=== PATIENT | male | born 1985 | race Caucasian/White ===

== ENCOUNTER 2017-06-30 10:40 | Emergency (ER) | payer OTHER ==
[2017-06-30 10:55] VITALS: TEMP 97.5
--- NOTE | 2017-06-30 11:48 | ED ---
General Adult HPI - General Chief complaint: Extremity Problem,Nontraumatic Stated complaint: Numbness in hands Time Seen by Provider: 06/30/17 10:55 Source: patient, RN notes reviewed Mode of arrival: ambulatory Limitations: no limitations - History of Present Illness Initial comments: This is a 31-year-old male who presents emergency Department complaining of a two-week history of tingling to his fingers and that tingling is now progressed up into his forearms and up to his calves now. Patient also is stating that he does not feel anywhere near as strong as he is. 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 Patient states in early May he had a gastroenteritis type picture. Patient denies any recent fever or chills patient denies any cough patient denies any chest pain difficulty breathing or shortness of breath. Patient denies any swallowing difficulties. Patient denies any headache patient denies any visual disturbance. Patient states the weakness seems to be in all 4 extremities relatively equally however in his right foot he is able to curl his toes more than he can on the left. Patient denies any recent injury or fall. - Related Data Home Medications Medication Instructions Recorded Confirmed No Known Home Medications [No 06/30/17 06/30/17 Known Home Medications] Allergies Allergy/AdvReac Type Severity Reaction Status Date / Time meperidine [From Demerol] Allergy Rash/Hives Verified 06/30/17 12:22 morphine Allergy Rash/Hives Verified 06/30/17 12:22 Review of Systems ROS Statement: Those systems with pertinent positive or pertinent negative responses have been documented in the HPI. ROS Other: All systems not noted in ROS Statement are negative. Past Medical History Past Medical History: No Reported History History of Any Multi-Drug Resistant Organisms: None Reported Past Surgical History: Orthopedic Surgery Additional Past Surgical History / Comment(s): kidney polyps removed in left kidney, lt shoulder Past Anesthesia/Blood Transfusion Reactions: No Reported Reaction Past Psychological History: No Psychological Hx Reported Smoking Status: Never smoker Past Alcohol Use History: None Reported Past Drug Use History: None Reported General Exam - General Exam Comments Initial Comments: GENERAL: Patient is well-developed and well-nourished. Patient is nontoxic and well- hydrated and is in mild distress. ENT: Neck is soft and supple. No significant lymphadenopathy is noted. Oropharynx is clear. Moist mucous membranes. Neck has full range of motion without eliciting any pain. EYES: The sclera were anicteric and conjunctiva were pink and moist. Extraocular movements were intact and pupils were equal round and reactive to light. Eyelids were unremarkable. PULMONARY: Unlabored respirations. Good breath sounds bilaterally. No audible rales rhonchi or wheezing was noted. CARDIOVASCULAR: There is a regular rate and rhythm without any murmurs gallops or rubs. ABDOMEN: Soft and nontender with normal bowel sounds. No palpable organomegaly was noted. There is no palpable pulsatile mass. SKIN: Skin is clear with no lesions or rashes and otherwise unremarkable. NEUROLOGIC: Patient is alert and oriented x3. Cranial nerves II through XII are grossly intact. Patient has weakness of the biceps as well as the quadriceps muscles. Patient also is having tingling sensation in her hands and feet but does not have objective numbness. Patient has no patellar tendon reflex bilaterally. MUSCULOSKELETAL: Normal extremities with diffuse weakness and full range of motion. No lower extremity swelling or edema. No calf tenderness. LYMPHATICS: No significant lymphadenopathy is noted PSYCHIATRIC: Normal psychiatric evaluation. Normal interpersonal interactions appears functionally intact in deals appropriately with others. Limitations: no limitations Course Vital Signs 06/30/17 06/30/17 10:52 12:50 Temperature 97.5 F L Pulse Rate 85 71 Respiratory 20 15 Rate Blood Pressure 137/94 105/68 O2 Sat by Pulse 99 97 Oximetry Procedures - Lumbar Puncture Consent Obtained: written consent Time Out Performed: Yes Indication for Procedure: other (Generalized weakness) Patient Position: sitting upright/leaning forward Local Anesthetic Used: Lidocaine 1% Spinal Needle Gauge: 22G Spinal Needle Length: 3.5in Interspace Used: L4-L5 Fluid Initially Obtained: clear Complications: none Patient Tolerated Procedure: well Medical Decision Making - Medical Decision Making CT of the brain and C-spine were negative. I did a lumbar puncture on the patient he came back with a protein of 81 which is the only abnormal result on that. I spoke with Dr. Castro he thought the patient would be better served going [facility] and [facility]. I spoke with Dr. Nikko pickett and [facility] Baltazar and he accepted the transfer of this patient. - Lab Data Result diagrams: 06/30/17 11:34 06/30/17 11:34 Lab Results 06/30/17 06/30/17 06/30/17 Range/Units 11:34 11:34 13:25 WBC 6.0 (3.8-10.6) k/uL RBC 5.44 (4.30-5.90) m/uL Hgb 16.0 (13.0-17.5) gm/dL Hct 48.9 (39.0-53.0) % MCV 90.0 (80.0-100.0) fL MCH 29.5 (25.0-35.0) pg MCHC 32.8 (31.0-37.0) g/dL RDW 15.0 (11.5-15.5) % Plt Count 245 (150-450) k/uL Neutrophils % 62 % Lymphocytes % 27 % Monocytes % 7 % Eosinophils % 1 % Basophils % 1 % Neutrophils # 3.7 (1.3-7.7) k/uL Lymphocytes # 1.6 (1.0-4.8) k/uL Monocytes # 0.4 (0-1.0) k/uL Eosinophils # 0.1 (0-0.7) k/uL Basophils # 0.1 (0-0.2) k/uL Sodium 142 (137-145) mmol/L Potassium 4.4 (3.5-5.1) mmol/L Chloride 104 (98-107) mmol/L Carbon Dioxide 29 (22-30) mmol/L Anion Gap 9 mmol/L BUN 12 (9-20) mg/dL Creatinine 0.90 (0.66-1.25) mg/dL Est GFR (MDRD) Af Amer >60 (>60 ml/min/1.73 sqM) Est GFR (MDRD) Non-Af >60 (>60 ml/min/1.73 sqM) Glucose 109 H (74-99) mg/dL Calcium 9.7 (8.4-10.2) mg/dL Magnesium 2.0 (1.6-2.3) mg/dL Total Bilirubin 0.5 (0.2-1.3) mg/dL AST 38 (17-59) U/L ALT 73 H (21-72) U/L Alkaline Phosphatase 69 (38-126) U/L C-Reactive Protein <5.0 (<10.0) mg/L Total Protein 7.2 (6.3-8.2) g/dL Albumin 4.4 (3.5-5.0) g/dL CSF Tube Number 4 CSF Volume 1.0 CSF Appearance Clear CSF Color Colorless CSF RBC 1 (0-10) u/L CSF Tot Nucleated Cells 0 (0-5) u/L CSF Glucose 66 (40-70) mg/dL CSF Total Protein 81 H (12-60) mg/dL Critical Care Time Critical Care Time: Yes Total Critical Care Time: 35 Disposition 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 Specs Out of Hospital Transfer - Requested Specifics: Other Emergency Center ([facility])
[2017-06-30 11:52] LABS: Basophils # (A) 0.1 k/uL (0-0.2); Basophils % (A) 1 %; Eosinophils # (A) 0.1 k/uL (0-0.7); Eosinophils % (A) 1 %; HCT 48.9 % (39.0-53.0); Lymphocytes # (A) 1.6 k/uL (1.0-4.8); Lymphocytes % (A) 27 %; MCH 29.5 pg (25.0-35.0); MCHC 32.8 g/dL (31.0-37.0); Mean Platelet Volume 7.2; Monocytes # (A) 0.4 k/uL (0-1.0); Monocytes % (A) 7 %; Neutrophils # (A) 3.7 k/uL (1.3-7.7); Neutrophils % (A) 62 %; Platelet Count 245 k/uL (150-450); RBC 5.44 m/uL (4.30-5.90)
[2017-06-30 12:01] LABS: ALT 73 U/L (21-72); AST 38 U/L (17-59); Albumin 4.4 g/dL (3.5-5.0); Alkaline Phosphatase 69 U/L (38-126); Anion Gap 9 mmol/L; Blood Urea Nitrogen 12 mg/dL (9-20); C Reactive Protein <5.0 mg/L (<10.0); Calcium 9.7 mg/dL (8.4-10.2); Carbon Dioxide 29 mmol/L (22-30); Chloride 104 mmol/L (98-107); Glucose 109 mg/dL (74-99); Potassium 4.4 mmol/L (3.5-5.1); Sodium 142 mmol/L (137-145); Total Bilirubin 0.5 mg/dL (0.2-1.3); Total Protein 7.2 g/dL (6.3-8.2)
--- NOTE | 2017-06-30 12:19 | CT ---
EXAMINATION TYPE: CT brain [place] wo con DATE OF EXAM: 06/30/2017 COMPARISON: 12/21/2013 HISTORY: numbness and fingers and toes CT DLP: 1509.6 mGycm Automated exposure control for dose reduction was used. TECHNIQUE: CT scan of the head and cervical spine are performed without contrast. FINDINGS: Ventricles and sulci appear normal. There is no mass effect nor midline shift. There is n o sign of intracranial hemorrhage. The calvarium is intact. The cervical vertebra have normal spacing and alignment. The posterior elements are intact. There is no evidence for fracture. IMPRESSION: Negative CT scan of the brain. Negative CT scan of the cervical spine. No change.
[2017-06-30 13:55] LABS: Glucose,CSF 66 mg/dL (40-70); Total Protein,CSF 81 mg/dL (12-60)
[2017-06-30 14:23] LABS: Appearance,CSF Clear; CSF Tube Number 4; Red Blood Cell,CSF 1 u/L (0-10)
[2017-06-30 14:24] LABS: Nucleated Cells, CSF 0 u/L (0-5)
[2017-06-30] MEDS ORDERED: LORazepam 2 MG/ML INJ IV STA (15:43)
[2017-06-30] MEDS ORDERED: NICOTINE 21MG/24HR PATCH TRANSDERM STA (15:56)
[2017-06-30 16:03] VITALS: BP 117/61; PULSE 74; RESP 16
== END 2017-06-30 17:01 | disposition other institution (70) ==
LOC: EC 10:40
DX: G61.0 Guillain-Barre syndrome (principal); Z88.5 Allergy status to narcotic agent
CPT/HCPCS: 36415; 84157; 80053; 82945; 83735; 83873; 85025; 86140; 89050; 87070; 87205; 72125; 70450; 99285; 62270; 96374; S4990; J2060

== ENCOUNTER 2018-06-13 19:19 | Emergency (ER) | payer OTHER ==
[2018-06-13 19:52] VITALS: BP 140/83; PULSE 86; RESP 18; TEMP 98.6
--- NOTE | 2018-06-13 20:08 | ED ---
Wound/Laceration HPI - General Chief Complaint: Wound/Laceration Stated Complaint: Hand laceration Time Seen by Provider: 06/13/18 19:56 Source: patient Mode of arrival: ambulatory Limitations: no limitations - History of Present Illness Initial Comments: This is a 32-year-old male who presents to the emergency department with chief complaint of left hand laceration. Patient reports approx one hour prior to arrival he was gutting his deer. He reports a laceration to the left palm. He states he is up-to-date with his tetanus vaccination. Patient refuses x-ray. He reports normal range of motion of the hand and no numbness or tingling. Denies any other injuries or trauma. Denies fevers or chills, nausea or vomiting, headache or dizziness. - Related Data Home Medications Medication Instructions Recorded Confirmed No Known Home Medications 06/30/17 06/30/17 Allergies Allergy/AdvReac Type Severity Reaction Status Date / Time meperidine [From Demerol] Allergy Rash/Hives Verified 06/13/18 19:52 morphine Allergy Rash/Hives Verified 06/13/18 19:52 Review of Systems ROS Statement: Those systems with pertinent positive or pertinent negative responses have been documented in the HPI. ROS Other: All systems not noted in ROS Statement are negative. 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 HEENT: Head atraumatic, normocephalic. Pupils are equal, round and reactive to light. Extraocular movements intact. Oropharynx moist without erythema or exudate. Neck: Supple. Normal ROM. Cardiovascular: Regular rate and rhythm. No murmurs, rubs or gallops. Chest symmetrical. Respiratory: Lungs clear to auscultation bilaterally. No wheezes, rales or rhonchi. Normal respiratory effort with no use of accessory muscles. Musculoskeletal: Normal range of motion of the left hand. There is an approximately 4 cm linear laceration at the thenar eminence of the left hand. Bleeding is controlled. Sensation is intact. No evidence of foreign body. Radial pulses are 2+ equal and palpable bilaterally. Skin: [place], warm and dry. Neurological: Alert and oriented x3. Speech is fluent and answers are appropriate. Psychiatric: Normal mood and affect. No overt signs of depression or anxiety noted. Limitations: no limitations Course Vital Signs 06/13/18 19:48 Temperature 98.6 F Pulse Rate 86 Respiratory 18 Rate Blood Pressure 140/83 O2 Sat by Pulse 98 Oximetry Procedures - Laceration Laceration #1 Consent Obtained: verbal consent Time Out Performed: Yes Indication: laceration Site: hand Size (cm): 4 Description: linear Depth: simple, single layer Anesthetic Used: lidocaine 1% Anesthesia Technique: local infiltration Amount (mls): 7 Pre-repair: wound explored, irrigated extensively, deep structures intact Type of Sutures: nylon Size of Sutures: 5-0 Number of Sutures: 7 Technique: simple, interrupted Patient Tolerated Procedure: well, no complications Medical Decision Making - Medical Decision Making This is a 32-year-old male who presents to the emergency department with chief complaint of left hand laceration. Wound was thoroughly irrigated and cleansed. Patient refuses an x-ray of the hand. No foreign bodies are identified. 7 sutures were placed and patient tolerated well without complication. Recommended removal in 10-14 days. Patient reports he is up-to- date with his tetanus vaccination. He will be prescribed Keflex. Vitals are stable and patient is in no acute distress. He will be discharged home at this time. He is in agreement with plan and voices understanding. All questions have been answered. Disposition Clinical Impression: Laceration Disposition: HOME SELF-CARE Condition: Good Instructions: Care For Your Stitches (ED), Laceration (ED) Additional Instructions: Please take medications as prescribed. Please follow up with primary care provider within 1-2 days. Return to emergency department if symptoms should worsen or any concerns arise. Is patient prescribed a controlled substance at d/c from ED?: No Referrals: None,Stated [Primary Care Provider] - 1-2 days
[2018-06-13] MEDS ORDERED: LIDOCAINE 1% INJ 10MG/ML (20 ML MDV) SQ ONE (20:15)
[2018-06-13] MEDS ORDERED: CEPHALEXIN 500 MG CAP PO STA (20:22)
== END 2018-06-13 21:00 | disposition home or self-care (01) ==
LOC: EC 19:19
DX: S61.412A Laceration without foreign body of left hand, initial encounter (principal); F17.200 Nicotine dependence, unspecified, uncomplicated; Z88.5 Allergy status to narcotic agent; W27.8XXA Contact with other nonpowered hand tool, initial encounter
CPT/HCPCS: 99282; 12002; J2001

== ENCOUNTER 2018-08-10 19:33 | Emergency (ER) | payer OTHER ==
--- NOTE | 2018-08-10 20:30 | ED ---
Psych HPI - General Chief Complaint: Psychiatric Symptoms Stated Complaint: Mental Health Time Seen by Provider: 08/10/18 19:45 Source: patient Mode of arrival: ambulatory - History of Present Illness Initial Comments: Patient is a 32-year-old male presenting for suicidal thoughts. The patient states that he is been going through a lot of stress times with his and he has 6 sons. He is also having financial troubles and today, he got into a heated argument with his and his told him that his children would be better off without him. It also been drinking and therefore he went to his friend's house where he admitted a suicidal plan. He states that he was going to go to his father's house who is away and on a cruise and he is going to sit under their [place] tree and shoot himself in the head. Patient currently denies any physical complaints. - Related Data Home Medications Medication Instructions Recorded Confirmed Cyanocobalamin (Vitamin B-12) 1,000 mcg PO DAILY 08/10/18 08/10/18 [Vitamin B-12] Iron(Unknown) 1 tab PO DAILY 08/10/18 08/10/18 Pyridoxine HCl (Vitamin B6) 100 mg PO DAILY 08/10/18 08/10/18 [Vitamin B-6] Allergies Allergy/AdvReac Type Severity Reaction Status Date / Time meperidine [From Demerol] Allergy Rash/Hives Verified 08/10/18 21:00 morphine Allergy Rash/Hives Verified 08/10/18 21:00 Review of Systems ROS Statement: Those systems with pertinent positive or pertinent negative responses have been documented in the HPI. Constitutional: Negative for chills, fatigue and fever. HENT: Negative for congestion. Respiratory: Negative for chest tightness, shortness of breath and wheezing. Negative for cough Cardiovascular: Negative for chest pain and palpitations. Gastrointestinal: Negative for abdominal pain. Negative for abdominal distention , diarrhea, nausea and vomiting. Genitourinary: Negative for dysuria. Musculoskeletal: Negative for back pain, neck pain and neck stiffness. Skin: Negative for color change. Neurological: Negative for dizziness, speech difficulty, weakness and light- headedness. Psychiatric/Behavioral: Negative for agitation and confusion. Negative for anxiety. Positive for suicidal ideation ROS Other: All systems not noted in ROS Statement are negative. 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 No distress. Head: Normocephalic and atraumatic. Eyes: EOM are normal. Neck: Normal range of motion. Neck supple. Cardiovascular: Normal rate, regular rhythm, S1 normal, S2 normal and normal heart sounds. Exam reveals no gallop and no friction rub. No murmur heard. Pulmonary/Chest: Effort normal and breath sounds normal. No tachypnea and no bradypnea. No respiratory distress. No wheezes or rales noted. Abdominal: Soft. Bowel sounds are normal. Pt exhibits no shifting dullness, no distension, no pulsatile liver, no fluid wave, no abdominal bruit and no ascites. There is no rigidity, no rebound, no guarding, no tenderness at McBurney's point and negative Young's sign. There is no tenderness. Musculoskeletal: Normal range of motion. Neurological: Pt is alert and oriented to person, place, and time. No cranial nerve deficit. Skin: Skin is warm and dry. No rash noted. Pt is not diaphoretic. No erythema. No pallor. Psychiatric: Pt has a normal mood and affect. Pt behavior is normal. Patient is tearful and admits suicidal ideation with a plan. Negative for hallucinations Limitations: no limitations Course Vital Signs 08/10/18 08/10/18 08/11/18 19:34 22:46 06:49 Temperature 98.7 F 98.1 F Pulse Rate 100 64 Respiratory 20 16 18 Rate Blood Pressure 130/77 101/53 O2 Sat by Pulse 99 95 Oximetry 08/11/18 08/11/18 08/11/18 08:03 11:00 14:31 Temperature 98.0 F Pulse Rate 80 82 72 Respiratory 18 18 18 Rate Blood Pressure 111/56 123/72 135/72 O2 Sat by Pulse 100 100 100 Oximetry Medical Decision Making - Medical Decision Making Patient cannot be medically cleared as the patient's alcohol was elevated. She will be sober at approximately 1:30 AM and then reevaluated by psychiatric services. 08/12/2018, 01:09 - Per chart review, patient was evaluated by psychiatry and eventually transferred to [facility] facility. - Lab Data Result diagrams: 08/11/18 08:40 08/11/18 08:40 Lab Results 08/10/18 08/11/18 08/11/18 Range/Units 22:40 08:40 08:40 WBC 4.8 (3.8-10.6) k/uL RBC 4.73 (4.30-5.90) m/uL Hgb 14.2 (13.0-17.5) gm/dL Hct 42.8 (39.0-53.0) % MCV 90.6 (80.0-100.0) fL MCH 30.1 (25.0-35.0) pg MCHC 33.2 (31.0-37.0) g/dL RDW 12.7 (11.5-15.5) % Plt Count 275 (150-450) k/uL Neutrophils % 62 % Lymphocytes % 29 % Monocytes % 6 % Eosinophils % 1 % Basophils % 0 % Neutrophils # 3.0 (1.3-7.7) k/uL Lymphocytes # 1.4 (1.0-4.8) k/uL Monocytes # 0.3 (0-1.0) k/uL Eosinophils # 0.1 (0-0.7) k/uL Basophils # 0.0 (0-0.2) k/uL Sodium 145 (137-145) mmol/L Potassium 4.0 (3.5-5.1) mmol/L Chloride 111 H (98-107) mmol/L Carbon Dioxide 26 (22-30) mmol/L Anion Gap 8 mmol/L BUN 12 (9-20) mg/dL Creatinine 0.76 (0.66-1.25) mg/dL Est GFR (CKD-EPI)AfAm >90 (>60 ml/min/1.73 sqM) Est GFR (CKD-EPI)NonAf >90 (>60 ml/min/1.73 sqM) Glucose 90 (74-99) mg/dL Calcium 9.0 (8.4-10.2) mg/dL Total Bilirubin 0.5 (0.2-1.3) mg/dL AST 54 (17-59) U/L ALT 74 H (21-72) U/L Alkaline Phosphatase 78 (38-126) U/L Total Protein 6.4 (6.3-8.2) g/dL Albumin 3.9 (3.5-5.0) g/dL Urine Opiates Screen Not Detected (NotDetected) Ur Oxycodone Screen Not Detected (NotDetected) Urine Methadone Screen Not Detected (NotDetected) Ur Propoxyphene Screen Not Detected (NotDetected) Ur Barbiturates Screen Not Detected (NotDetected) U Tricyclic Antidepress Not Detected (NotDetected) Ur Phencyclidine Scrn Not Detected (NotDetected) Ur Amphetamines Screen Not Detected (NotDetected) U Methamphetamines Scrn Not Detected (NotDetected) U Benzodiazepines Scrn Not Detected (NotDetected) Urine Cocaine Screen Not Detected (NotDetected) U Marijuana (THC) Screen Not Detected (NotDetected) Disposition Clinical Impression: Suicidal ideation Disposition: TRANSFER TO PSYCH HOSP/UNIT Condition: Good Referrals: None,Stated [Primary Care Provider] - 1-2 days - Out of Hospital Transfer - Req. Specs Out of Hospital Transfer - Requested Specifics: Psychiatric Non-ICU
[2018-08-10 23:21] LABS: Amphetamine Screen,Urine Not Detected (NotDetected); Barbiturate Screen,Urine Not Detected (NotDetected); Benzodiazepines Screen,Urine Not Detected (NotDetected); Cocaine Screen,Urine Not Detected (NotDetected); Methadone Screen, Urine Not Detected (NotDetected); Opiate Screen,Urine Not Detected (NotDetected); Oxycodone Screen, Urine Not Detected (NotDetected); Phencyclidine Screen,Urine Not Detected (NotDetected); Tricyclic Antidepressant,Urine Not Detected (NotDetected); Urn Cannabinoid Scrn Not Detected (NotDetected)
[2018-08-11 06:51] VITALS: RESP 18
[2018-08-11] MEDS ORDERED: NICOTINE 21MG/24HR PATCH TRANSDERM STA (08:09)
[2018-08-11 09:39] LABS: ALT 74 U/L (21-72); AST 54 U/L (17-59); Albumin 3.9 g/dL (3.5-5.0); Alkaline Phosphatase 78 U/L (38-126); Anion Gap 8 mmol/L; Blood Urea Nitrogen 12 mg/dL (9-20); Carbon Dioxide 26 mmol/L (22-30); Chloride 111 mmol/L (98-107); Glucose 90 mg/dL (74-99); Sodium 145 mmol/L (137-145); Total Bilirubin 0.5 mg/dL (0.2-1.3); Total Protein 6.4 g/dL (6.3-8.2)
[2018-08-11 09:46] LABS: Basophils % (A) 0 %; Eosinophils # (A) 0.1 k/uL (0-0.7); Eosinophils % (A) 1 %; HCT 42.8 % (39.0-53.0); HGB 14.2 gm/dL (13.0-17.5); Lymphocytes # (A) 1.4 k/uL (1.0-4.8); Lymphocytes % (A) 29 %; MCH 30.1 pg (25.0-35.0); MCHC 33.2 g/dL (31.0-37.0); MCV 90.6 fL (80.0-100.0); Mean Platelet Volume 6.1; Monocytes # (A) 0.3 k/uL (0-1.0); Monocytes % (A) 6 %; Neutrophils % (A) 62 %; Platelet Count 275 k/uL (150-450); RBC 4.73 m/uL (4.30-5.90); RDW 12.7 % (11.5-15.5); WBC 4.8 k/uL (3.8-10.6)
[2018-08-11 14:32] VITALS: BP 135/72; PULSE 72; TEMP 98
== END 2018-08-11 14:33 ==
LOC: EC 19:33
DX: R45.851 Suicidal ideations (principal); F17.200 Nicotine dependence, unspecified, uncomplicated; Z63.0 Problems in relationship with spouse or partner; Z88.5 Allergy status to narcotic agent
CPT/HCPCS: 82075; 36415; 80053; 85025; 80306; 99285; S4990

== ENCOUNTER 2018-11-13 12:30 | Emergency (ER) | payer OTHER ==
--- NOTE | 2018-11-13 13:17 | ED ---
General Adult HPI - General Chief complaint: Psychiatric Symptoms Stated complaint: EPS eval Time Seen by Provider: 11/13/18 12:35 Source: patient, RN notes reviewed Mode of arrival: ambulatory Limitations: no limitations - History of Present Illness Initial comments: This is a 32-year-old male who presents emergency Department with a past medical history significant for depression and suicidal ideations chronic back pain and alcoholism. Patient comes in today because he states he started to think about suicide though he does not have a plan yet he knows something is wrong and wants to be evaluated and may be seek out some help. Patient states he has had a couple drinks today. Patient denies any drug use. Patient denies any physical complaint other than his chronic lower back pain which she has had for years. Patient states his back pain hasn't changed in the last couple of years. Patient denies any numbness or weakness. Patient denies any new injuries. - Related Data Home Medications Medication Instructions Recorded Confirmed No Known Home Medications 11/13/18 11/13/18 Allergies Allergy/AdvReac Type Severity Reaction Status Date / Time meperidine [From Demerol] Allergy Rash/Hives Verified 11/13/18 12:56 morphine Allergy Rash/Hives Verified 11/13/18 12:56 Review of Systems ROS Statement: Those systems with pertinent positive or pertinent negative responses have been documented in the HPI. ROS Other: All systems not noted in ROS Statement are negative. Past Medical History Past Medical History: Osteoarthritis (OA) Additional Past Medical History / Comment(s): Guillian barre syndrome, chronic back pain History of Any Multi-Drug Resistant Organisms: None Reported Past Surgical History: Orthopedic Surgery Additional Past Surgical History / Comment(s): kidney polyps removed in left kidney, lt shoulder Past Anesthesia/Blood Transfusion Reactions: No Reported Reaction Past Psychological History: No Psychological Hx Reported Smoking Status: Former smoker Past Alcohol Use History: Occasional Past Drug Use History: None Reported General Exam - General Exam Comments Initial Comments: GENERAL: Patient is well-developed and well-nourished. Patient is nontoxic and well- hydrated and is in no acute distress. ENT: Neck has full range of motion without eliciting any pain. EYES: The sclera were anicteric and conjunctiva were pink and moist. Extraocular movements were intact and pupils were equal round and reactive to light. Eyelids were unremarkable. PULMONARY: Unlabored respirations. Good breath sounds bilaterally. No audible rales rhonchi or wheezing was noted. CARDIOVASCULAR: There is a regular rate and rhythm without any murmurs gallops or rubs. ABDOMEN: Soft and nontender with normal bowel sounds. No palpable organomegaly was noted. There is no palpable pulsatile mass. SKIN: Skin is clear with no lesions or rashes and otherwise unremarkable. NEUROLOGIC: Patient is alert and oriented x3. Cranial nerves II through XII are grossly intact. Motor and sensory are also intact. Normal speech, volume and content. Symmetrical smile. MUSCULOSKELETAL: Normal extremities with adequate strength and full range of motion. No lower extremity swelling or edema. No calf tenderness. LYMPHATICS: No significant lymphadenopathy is noted PSYCHIATRIC: Patient states he is suicidal. Patient states he has been drinking patient denies having made any attempt to harm himself today. Limitations: no limitations Course Vital Signs 11/13/18 12:37 Temperature 98.1 F Pulse Rate 109 H Respiratory 20 Rate Blood Pressure 134/66 O2 Sat by Pulse 100 Oximetry Medical Decision Making - Lab Data Lab Results 11/13/18 Range/Units 15:05 Urine Opiates Screen Detected H (NotDetected) Ur Oxycodone Screen Not Detected (NotDetected) Urine Methadone Screen Not Detected (NotDetected) Ur Propoxyphene Screen Not Detected (NotDetected) Ur Barbiturates Screen Not Detected (NotDetected) U Tricyclic Antidepress Not Detected (NotDetected) Ur Phencyclidine Scrn Not Detected (NotDetected) Ur Amphetamines Screen Not Detected (NotDetected) U Methamphetamines Scrn Not Detected (NotDetected) U Benzodiazepines Scrn Not Detected (NotDetected) Urine Cocaine Screen Not Detected (NotDetected) U Marijuana (THC) Screen Not Detected (NotDetected) Disposition Clinical Impression: Depression, Alcohol abuse Disposition: HOME SELF-CARE Condition: Good Instructions (If sedation given, give patient instructions): Abuse of Alcohol (ED), Depression (ED) Is patient prescribed a controlled substance at d/c from ED?: No Referrals: None,Stated [Primary Care Provider] - 1-2 days Time of Disposition: 18:18
[2018-11-13 15:25] LABS: Amphetamine Screen,Urine Not Detected (NotDetected); Barbiturate Screen,Urine Not Detected (NotDetected); Benzodiazepines Screen,Urine Not Detected (NotDetected); Cocaine Screen,Urine Not Detected (NotDetected); Methadone Screen, Urine Not Detected (NotDetected); Opiate Screen,Urine Detected (NotDetected); Oxycodone Screen, Urine Not Detected (NotDetected); Phencyclidine Screen,Urine Not Detected (NotDetected); Tricyclic Antidepressant,Urine Not Detected (NotDetected); Urn Cannabinoid Scrn Not Detected (NotDetected)
[2018-11-13 18:44] VITALS: BP 106/65; PULSE 91; RESP 18; TEMP 98.2
== END 2018-11-13 18:41 | disposition home or self-care (01) ==
LOC: EC 12:30
DX: F32.9 Major depressive disorder, single episode, unspecified (principal); F10.10 Alcohol abuse, uncomplicated; R45.851 Suicidal ideations; G89.29 Other chronic pain; M54.5 Low back pain; Z87.891 Personal history of nicotine dependence; Z88.5 Allergy status to narcotic agent
CPT/HCPCS: 80306; 82075; 99285

== ENCOUNTER → 2019-06-03 | Outpatient (CLI) | payer OTHER ==
--- NOTE | 2019-06-03 23:02 | CONS ---
CONSULTATION REASON FOR CONSULTATION: Insomnia. HISTORY OF PRESENT ILLNESS: This is a 33-year-old male patient. He works in the [employer] business. Was having currently difficulty with falling and staying asleep. The patient always had a problem with sleep initiation and maintenance. His symptoms have gotten worse. He has been a long-term alcohol drinker. He used to drink 1 pint of vodka on a daily basis and he has not been drinking since December of this year. Since then, his symptoms have gotten somewhat worse. At same time, he has had social issues where he has had a difficult departure from an ex-girlfriend and this has added a lot of stress on him knowing that there has been also some issues with custody of a child. Currently he is living with an another girlfriend who has noted that the patient is unable to shut on his brain and go to sleep. When he sleeps he wakes up in the middle of the night and he gets up and is very aware of his environment and checks environment around him and has difficulty in going back to sleep. During the day, he has difficulty in staying asleep. He feels unrefreshed. No reported history of sleep paralysis or hallucinations, or cataplexy. No reported history of sleepwalking. No reported history of snore or witnessed apneas or excessive symptoms of nocturia or waking up choking or gasping sensation. He is still trying to go to bed between 9-10 p.m. and he has to get up 6:30 a.m. in the morning. Sometimes takes more than one hour to fall asleep. His current Ararat score is 9. His depression screening was done and the patient scored high on depression screening scales and he was seen by his primary care physician. He was started on 25 mg of Zoloft to be gradually titrated up depending on his symptoms. Since then, he has felt somewhat better although the improvement has not been of significant magnitude. Seems to be quite anxious and depressed for now. No suicidal ideation. He has sleep fragmentation. He has increased nighttime arousals around 3-4 times in the middle of the night. His weight has been stable. PAST MEDICAL HISTORY: Hypertension. PAST SURGICAL HISTORY: Negative. DRUG ALLERGIES: DEMEROL AND MORPHINE. OUTPATIENT MEDICATION: Include lisinopril 2.5 mg p.o. daily and Zoloft 25 mg p.o. daily. SOCIAL HISTORY: The patient is a nonsmoker. He chews tobacco. He used to drink alcohol in excess. None for the past 5 months. No history of IV drug use. FAMILY HISTORY: Negative for sleep disorders. REVIEW OF SYSTEMS: Fourteen-point review of system was done and positive findings are mentioned above in the history of present illness. PHYSICAL EXAMINATION: BP is 136/76, pulse 74, respirations 16, temperature 98.1. Saturation 98% on room air. BMI 33. Height is 5 feet 10 inches, weight is 231. Neck size 17 inches. Ararat Score is at 9. General appearance: Calm and comfortable. HEENT: Head is atraumatic, normocephalic. NECK: Supple. No JVD. No goiter or neck masses. LUNGS: Clear to auscultation. HEART: Heart sounds are regular rate and rhythm. Normal S1, S2. No S3, S4. No murmurs. ABDOMEN: Soft, nontender. No organomegaly. EXTREMITIES: No edema. No cyanosis or clubbing. NEUROLOGIC: Awake and alert. There are no focal neurological deficits. PSYCH is positive for anxiety and depression. IMPRESSION: Chronic anxiety further exacerbated by alcohol withdrawal and increased direct effect of stress and anxiety and depression in this patient. Currently not drinking alcohol and he has been off drinking for the past 6 months. At the same time he was started on Zoloft for a combination of anxiety and depression. Doubt any sleep breathing disorder at this point in time. PLAN: In terms of pharmacotherapy, I agree on the addition of Zoloft which is helpful for anxiety and depression. The patient may need to be titrated up probably in a week or two to improve his symptoms. He seems to be responding for now and reports improvement in his quality of sleep in general and daytime symptoms while being on low-dose Zoloft. I will set that up. Probably up to 1500 mg and I will leave it up to his primary care physician Dr. Crawford to do that. Meanwhile I think it is reasonable to give him a course of Klonopin 0.5 mg for his anxiety and sleep induction and maintenance, to put him into a rhythm of sleeping while the Zoloft dose is being adjusted. In terms of issues to reduce anxiety and stress, we suggested meditation and regular exercise, soft calming music and I directed him towards application that will help with relaxation. He needs to consider even counseling to reduce stress and anxiety at a later stage. Issues related to sleep hygiene was also discussed with the patient. The patient will be seeing his primary care physician to up titrate his Zoloft dose and anticipate improvement. No need for sleep study at this point in time. NICKL / ROGERN: [id number] /
== END | disposition home or self-care (01) ==
LOC: SLEEP 15:15
PROVIDERS: ATTEND Internal Medicine Critical Care Medicine
DX: F41.9 Anxiety disorder, unspecified (principal); F32.9 Major depressive disorder, single episode, unspecified; F17.229 Nicotine dependence, chewing tobacco, with unspecified nicotine-induced disorders; R35.1 Nocturia; Z79.899 Other long term (current) drug therapy; Z88.5 Allergy status to narcotic agent
CPT/HCPCS: 99211

== ENCOUNTER 2021-12-27 08:12 | Emergency (ER) | payer OTHER ==
[2021-12-27 08:17] VITALS: BP 122/76; PULSE 78; RESP 18; TEMP 98.2
--- NOTE | 2021-12-27 09:06 | US ---
EXAMINATION TYPE: US scrotum with doppler. Grayscale and color Doppler Duplex imaging performed of t andrew scrotum. DATE OF EXAM: 12/27/2021 COMPARISON: NONE CLINICAL HISTORY: right testicle pain. pain right testicle EXAM MEASUREMENTS: TESTICLES: Right Testicle: 4.6 x 2.2 x 3.2 cm Left Testicle: 3.9 x 2.0 x 3.1 cm EPIDIDYMIS HEAD: Right Epididymis: 1.0 cm Left Epididymis: 0.9 cm Doppler performed to assess for testicular vascularity; good bilateral color flow and waveforms are s een. There is no evidence of testicular torsion. Presence of hydroceles: no significant fluid collection Presence of varicoceles: increased vascularity lateral to right testicle IMPRESSION: 1. There is a small right varicocele.
[2021-12-27] MEDS ORDERED: KETOROLAC 15 MG/ML 1 ML VIAL IM STA (09:21)
--- NOTE | 2021-12-27 09:25 | ED ---
General Adult HPI - General Chief complaint: Urogenital Stated complaint: testicular pain Time Seen by Provider: 12/27/21 09:10 Source: patient, family (), RN notes reviewed, old records reviewed Mode of arrival: ambulatory Limitations: no limitations - History of Present Illness Initial comments: 36-year-old well-appearing male presents to the emergency room with his complaining of right testicular pain for 2 days. states that they did have sex 2 days ago but he was on the bottom and it was not vigorous. Patient states that the pain does radiate into his right groin. Patient denies any fevers, dysuria or penile discharge. Denies any swelling or trauma. -: days(s) (2) Location: genitals (right testicle) Severity scale (1-10): 2 Quality: aching Associated Symptoms: denies other symptoms Treatments Prior to Arrival: none - Related Data Home Medications Medication Instructions Recorded Confirmed Escitalopram [Lexapro] 10 mg PO HS 12/27/21 12/27/21 Losartan Potassium [Cozaar] 25 mg PO HS 12/27/21 12/27/21 allopurinoL [Zyloprim] 100 mg PO HS 12/27/21 12/27/21 buPROPion XL [Wellbutrin XL] 150 mg PO HS 12/27/21 12/27/21 hydrOXYzine pamoate [Vistaril] 50 mg PO HS 12/27/21 12/27/21 Allergies Allergy/AdvReac Type Severity Reaction Status Date / Time meperidine [From Demerol] Allergy Rash/Hives Verified 12/27/21 09:18 morphine Allergy Rash/Hives Verified 12/27/21 09:18 Review of Systems ROS Statement: Those systems with pertinent positive or pertinent negative responses have been documented in the HPI. ROS Other: All systems not noted in ROS Statement are negative. Past Medical History Past Medical History: Osteoarthritis (OA) Additional Past Medical History / Comment(s): Guillian barre syndrome, chronic back pain History of Any Multi-Drug Resistant Organisms: None Reported Past Surgical History: Orthopedic Surgery Additional Past Surgical History / Comment(s): kidney polyps removed in left kidney, lt shoulder Past Anesthesia/Blood Transfusion Reactions: No Reported Reaction Past Psychological History: No Psychological Hx Reported Smoking Status: Never smoker Past Alcohol Use History: Occasional Past Drug Use History: None Reported General Exam Limitations: no limitations General appearance: alert, in no apparent distress Head exam: Present: atraumatic Respiratory exam: Present: normal lung sounds bilaterally. Absent: respiratory distress, accessory muscle use Cardiovascular Exam: Present: regular rate, normal rhythm GI/Abdominal exam: Present: soft, other (No evidence of inguinal hernia). Absent: distended, mass, hernia exam: Present: vertical testicular lie, circumcision. Absent: testicular tenderness, urethral discharge, scrotal swelling Extremities exam: Present: normal inspection, normal capillary refill Back exam: Present: normal inspection, full ROM. Absent: tenderness, CVA tenderness (R), CVA tenderness (L), rash noted Neurological exam: Present: alert, oriented X3, normal gait Psychiatric exam: Present: normal affect, normal mood Skin exam: Present: warm, dry, normal color. Absent: cyanosis, diaphoretic Course Vital Signs 12/27/21 08:13 Temperature 98.2 F Pulse Rate 78 Respiratory 18 Rate Blood Pressure 122/76 O2 Sat by Pulse 97 Oximetry Medical Decision Making - Medical Decision Making Ultrasound shows a small right varicocele. Good bilateral color flow with no evidence of testicular torsion. Patient does have a history of an ascending right testicle. There is no evidence of inguinal hernia lying or standing. Urinalysis was negative for infection, sent for culture. I did explain to the patient that he should wear underwear with scrotal support. No boxers. Tylenol and or Motrin for pain. He was directed to follow up with his primary care doctor return to the emergency room with any new or concerning symptoms. Patient and are agreeable to this plan of care. Case discussed with Dr. Benitez - Lab Data Lab Results 12/27/21 Range/Units 09:15 Urine Color Yellow Urine Appearance Clear (Clear) Urine pH 7.5 (5.0-8.0) Ur Specific [place] 1.018 (1.001-1.035) Urine Protein Negative (Negative) Urine Glucose (UA) Negative (Negative) Urine Ketones Negative (Negative) Urine Blood Negative (Negative) Urine Nitrite Negative (Negative) Urine Bilirubin Negative (Negative) Urine Urobilinogen <2.0 (<2.0) mg/dL Ur Leukocyte Esterase Negative (Negative) Disposition Clinical Impression: Right varicocele Disposition: HOME SELF-CARE Condition: Good Instructions (If sedation given, give patient instructions): Varicocele (ED) Additional Instructions: Scrotal support with supportive underpants. Follow-up with her primary care doctor this week. Return to the emergency room with any new or concerning symptoms including increased pain or testicular swelling. Is patient prescribed a controlled substance at d/c from ED?: No Referrals: Van Crawford Jr, DO [Primary Care Provider] - 1-2 days Time of Disposition: 09:46
[2021-12-27 09:53] LABS: Appearance,Urine Clear (Clear); Bilirubin,Urine Negative (Negative); Blood,Urine Negative (Negative); Color,Urine Yellow; Glucose,Urine (UA) Negative (Negative); Ketones,Urine Negative (Negative); Leukocyte Esterase,Urine Negative (Negative); Nitrite,Urine Negative (Negative); PH, Urine 7.5 (5.0-8.0); Protein,Urine Negative (Negative); Specific Gravity,Urine 1.018 (1.001-1.035); Urobilinogen,Urine <2.0 mg/dL (<2.0)
[2021-12-28 14:31] LABS: C. trachomatis,PCR Negative (Neg,Equiv); Chlamydia trachomatis Source Urine; N. gonorrhoeae,PCR Negative (Neg,Equiv); Neisseria Source Urine
== END 2021-12-27 10:29 | disposition home or self-care (01) ==
LOC: EC 08:12
DX: I86.1 Scrotal varices (principal); M19.90 Unspecified osteoarthritis, unspecified site; Z79.899 Other long term (current) drug therapy
CPT/HCPCS: 81003; 87491; 87591; 93975; 76870; 99284; 96372; J1885

== ENCOUNTER 2023-10-22 08:10 | Inpatient (IN) | payer OTHER ==
[2023-10-22] MEDS: SODIUM CHLORIDE 0.9% 2,000 ML IV STA (09:34)
[2023-10-22] MEDS: KETOROLAC 15 MG/ML 1 ML VIAL IVP STA (09:34)
[2023-10-22] MEDS: METOCLOPRAMIDE 5 MG/ML 2 ML VIAL IVP STA (09:35)
[2023-10-22] MEDS: diphenhydrAMINE 50 MG/ML 1 ML VIAL IVP STA (09:35)
[2023-10-22 09:41] LABS: ALT 33 U/L (4-49); AST 46 U/L (17-59); African American GFR (CKD) 80 (>60 ml/min/1.73 sqM); Albumin 4.1 g/dL (3.5-5.0); Alkaline Phosphatase 94 U/L (38-126); Anion Gap 7 mmol/L; Blood Urea Nitrogen 10 mg/dL (9-20); Calcium 8.9 mg/dL (8.4-10.2); Carbon Dioxide 23 mmol/L (22-30); Chloride 107 mmol/L (98-107); Glucose 130 mg/dL (74-99); Lipase 122 U/L (23-300); Non-African American GFR(CKD) 69 (>60 ml/min/1.73 sqM); Potassium 4.2 mmol/L (3.5-5.1); Sodium 137 mmol/L (137-145); Total Bilirubin 1.1 mg/dL (0.2-1.3); Total Protein 6.4 g/dL (6.3-8.2)
[2023-10-22 10:17] LABS: Basophils % (A) 0 %; Eosinophils % (A) 0 %; HCT 42.7 % (39.0-53.0); HGB 13.8 gm/dL (13.0-17.5); Lymphocytes # (A) 0.5 k/uL (1.0-4.8); Lymphocytes % (A) 4 %; MCH 26.8 pg (25.0-35.0); MCHC 32.3 g/dL (31.0-37.0); Mean Platelet Volume 8.2; Monocytes # (A) 0.7 k/uL (0-1.0); Monocytes % (A) 6 %; Neutrophils # (A) 10.8 k/uL (1.3-7.7); Neutrophils % (A) 90 %; Platelet Count 244 k/uL (150-450); RBC 5.15 m/uL (4.30-5.90); RDW 14.8 % (11.5-15.5)
[2023-10-22 10:46] LABS: Appearance,Urine Clear (Clear); Bilirubin,Urine Negative (Negative); Blood,Urine Negative (Negative); Color,Urine Yellow; Glucose,Urine (UA) Negative (Negative); Ketones,Urine Negative (Negative); Leukocyte Esterase,Urine Negative (Negative); Nitrite,Urine Negative (Negative); Protein,Urine Trace (Negative); Specific Gravity,Urine 1.028 (1.001-1.035)
[2023-10-22] MEDS: HYDROmorphone 1 MG/ML 1 ML SYRINGE IVP STA ×2 (11:30→13:32)
--- NOTE | 2023-10-22 11:37 | ED ---
Abdominal Pain HPI - General Chief Complaint: Abdominal Pain Stated Complaint: abd pain Time Seen by Provider: 10/22/23 08:30 Source: patient Mode of arrival: ambulatory Limitations: no limitations - History of Present Illness Initial Comments: 37-year-old male presents emergency department reporting abdominal pain. States it started in the middle of the night. He has had persistent nausea vomiting and watery diarrhea since onset. He has not taken anything for the symptoms since it started. No other sick contacts. He denies any chest pain or difficulty breathing. No cough. No fevers. Denies any black or bloody stools. No changes in his urination. No history of any abdominal surgeries. No other alleviating, precipitating modifying factors - Related Data Home Medications Medication Instructions Recorded Confirmed Escitalopram [Lexapro] 10 mg PO HS 12/27/21 10/22/23 Losartan Potassium [Cozaar] 25 mg PO HS 12/27/21 10/22/23 allopurinoL [Zyloprim] 100 mg PO HS 12/27/21 10/22/23 hydrOXYzine pamoate [Vistaril] 50 mg PO HS PRN 12/27/21 10/22/23 Lumateperone Tosylate [Caplyta] 42 mg PO HS 10/22/23 10/22/23 Allergies Allergy/AdvReac Type Severity Reaction Status Date / Time meperidine [From Demerol] Allergy Rash/Hives Verified 10/22/23 13:59 morphine Allergy Rash/Hives Verified 10/22/23 13:59 Review of Systems ROS Statement: Those systems with pertinent positive or pertinent negative responses have been documented in the HPI. ROS Other: All systems not noted in ROS Statement are negative. Past Medical History Past Medical History: Osteoarthritis (OA) Additional Past Medical History / Comment(s): Guillian barre syndrome, chronic back pain History of Any Multi-Drug Resistant Organisms: None Reported Past Surgical History: Orthopedic Surgery Additional Past Surgical History / Comment(s): kidney polyps removed in left kidney, lt shoulder Past Anesthesia/Blood Transfusion Reactions: No Reported Reaction Past Psychological History: No Psychological Hx Reported Smoking Status: Never smoker Past Alcohol Use History: Occasional Past Drug Use History: None Reported General Exam Limitations: no limitations General appearance: alert, in no apparent distress Head exam: Present: atraumatic, normocephalic, normal inspection Eye exam: Present: normal appearance, PERRL, EOMI. Absent: scleral icterus, conjunctival injection, periorbital swelling ENT exam: Present: normal exam, mucous membranes moist Neck exam: Present: normal inspection. Absent: tenderness, meningismus, lymphadenopathy Respiratory exam: Present: normal lung sounds bilaterally. Absent: respiratory distress, wheezes, rales, rhonchi, stridor Cardiovascular Exam: Present: normal rhythm, tachycardia, normal heart sounds. Absent: systolic murmur, diastolic murmur, rubs, gallop, clicks GI/Abdominal exam: Present: tenderness (Generalized, mostly periumbilical), normal bowel sounds. Absent: distended, guarding, rebound, rigid Extremities exam: Present: normal inspection, full ROM, normal capillary refill. Absent: tenderness, pedal edema, joint swelling, calf tenderness Back exam: Present: normal inspection Neurological exam: Present: alert, oriented X3, CN II-XII intact Psychiatric exam: Present: normal affect, normal mood Skin exam: Present: warm, dry, intact, normal color. Absent: rash Course Vital Signs 10/22/23 10/22/23 10/22/23 08:14 09:14 11:00 Temperature 99 F Pulse Rate 110 H 98 86 Respiratory 24 20 20 Rate Blood Pressure 130/74 114/75 130/79 O2 Sat by Pulse 99 99 98 Oximetry 10/22/23 10/22/23 13:00 16:07 Temperature 101.6 F H Pulse Rate 87 107 H Respiratory 20 18 Rate Blood Pressure 134/89 134/89 O2 Sat by Pulse 98 96 Oximetry Medical Decision Making - Medical Decision Making Was pt. sent in by a medical professional or institution (, PA, IMM[employer]AL[employer], urgent care, hospital, or fci...) When possible be specific @ -No Did you speak to anyone other than the patient for history (EMS, parent, family, police, friend...)? What history was obtained from this source @ -No Did you review nursing and triage notes (agree or disagree)? Why? @ -I reviewed and agree with nursing and triage notes Were old charts reviewed (outside hosp., previous admission, EMS record, old EKG, old radiological studies, urgent care reports/EKG's, fci records)? Report findings @ -No old charts were reviewed Differential Diagnosis (chest pain, altered mental status, abdominal pain women, abdominal pain men, vaginal bleeding, weakness, fever, dyspnea, syncope, headache, dizziness, GI bleed, back pain, seizure, CVA, palpatations, mental health, musculoskeletal)? @ -Differential Abdominal Pain Men: Appendicitis, cholecystitis, diverticulosis, ischemic bowel, pancreatitis, hepatitis, UTI, gastroenteritis, AAA, incarcerated hernia, bowel obstruction, constipation, inflammatory bowel, hepatitis, peptic ulcer disease, splenic infarction, perforated viscus, testicular torsion, this is not meant to be an all-inclusive list EKG interpreted by me (3pts min.). @ -Not done X-rays interpreted by me (1pt min.). @ -None done CT interpreted by me (1pt min.). @ -Yes and demonstrates possible internal hernia U/S interpreted by me (1pt. min.). @ -None done What testing was considered but not performed or refused? (CT, X-rays, U/S, labs)? Why? @ -None What meds were considered but not given or refused? Why? @ -None Did you discuss the management of the patient with other professionals (professionals i.e. , PA, [employer], lab, RT, psych nurse, manager social responsibility, final dressing cutter, teacher, press officer, sample case porter)? Give summary @ -Spoke with Dr. Santillan who will admit the patient Was smoking cessation discussed for >3mins.? @ -No Was critical care preformed (if so, how long)? @ -No Were there social determinants of health that impacted care today? How? (Homelessness, low income, unemployed, alcoholism, drug addiction, transportation, low edu. Level, literacy, decrease access to med. care, fdc, rehab)? @ -No Was there de-escalation of care discussed even if they declined (Discuss DNR or withdrawal of care, Hospice)? DNR status @ -No What co-morbidities impacted this encounter? (DM, HTN, Smoking, COPD, CAD, Cancer, CVA, ARF, Chemo, Hep., AIDS, mental health diagnosis, sleep apnea, morbid obesity)? @ -None Was patient admitted / discharged? Hospital course, mention meds given and route, prescriptions, significant lab abnormalities, going to OR and other pertinent info. @ -Upon arrival patient seen in room 25. Thorough history and physical exam was performed. IV access was established. Laboratory studies were conducted. Given pain and nausea medications. Patient does go for CT which demonstrates possible internal hernia. I discussed this with Dr. Santillan. he will admit the patient. Patient taken to the floor in stable condition Undiagnosed new problem with uncertain prognosis? @ -No Drug Therapy requiring intensive monitoring for toxicity (Heparin, Nitro, Insulin, Cardizem)? @ -No Were any procedures done? @ -No Diagnosis/symptom? @ -Acute abdominal pain, suspected internal hernia Acute, or Chronic, or Acute on Chronic? @ -Acute Uncomplicated (without systemic symptoms) or Complicated (systemic symptoms)? @ -Complicated Side effects of treatment? @ -No Exacerbation, Progression, or Severe Exacerbation? @ -No Poses a threat to life or bodily function? How? (Chest pain, USA, SD, pneumonia, PE, COPD, DKA, ARF, appy, cholecystitis, CVA, Diverticulitis, Homicidal, Suicidal, threat to staff... and all critical care pts) @ -No - Lab Data Result diagrams: 10/25/23 05:53 10/25/23 05:53 Lab Results 10/22/23 10/22/23 10/22/23 Range/Units 09:00 09:00 09:00 WBC 12.0 H (3.8-10.6) k/uL RBC 5.15 (4.30-5.90) m/uL Hgb 13.8 (13.0-17.5) gm/dL Hct 42.7 (39.0-53.0) % MCV 83.0 (80.0-100.0) fL MCH 26.8 (25.0-35.0) pg MCHC 32.3 (31.0-37.0) g/dL RDW 14.8 (11.5-15.5) % Plt Count 244 (150-450) k/uL MPV 8.2 Neutrophils % 90 % Lymphocytes % 4 % Monocytes % 6 % Eosinophils % 0 % Basophils % 0 % Neutrophils # 10.8 H (1.3-7.7) k/uL Lymphocytes # 0.5 L (1.0-4.8) k/uL Monocytes # 0.7 (0-1.0) k/uL Eosinophils # 0.0 (0-0.7) k/uL Basophils # 0.0 (0-0.2) k/uL Sodium 137 (137-145) mmol/L Potassium 4.2 (3.5-5.1) mmol/L Chloride 107 (98-107) mmol/L Carbon Dioxide 23 (22-30) mmol/L Anion Gap 7 mmol/L BUN 10 (9-20) mg/dL Creatinine 1.30 H (0.66-1.25) mg/dL Est GFR (CKD-EPI)AfAm 80 (>60 ml/min/1.73 sqM) Est GFR (CKD-EPI)NonAf 69 (>60 ml/min/1.73 sqM) Glucose 130 H (74-99) mg/dL Plasma Lactic Acid Chai 1.1 (0.7-2.0) mmol/L Calcium 8.9 (8.4-10.2) mg/dL Total Bilirubin 1.1 (0.2-1.3) mg/dL AST 46 (17-59) U/L ALT 33 (4-49) U/L Alkaline Phosphatase 94 (38-126) U/L Total Protein 6.4 (6.3-8.2) g/dL Albumin 4.1 (3.5-5.0) g/dL Lipase 122 (23-300) U/L Urine Color Urine Appearance (Clear) Urine pH (5.0-8.0) Ur Specific [place] (1.001-1.035) Urine Protein (Negative) Urine Glucose (UA) (Negative) Urine Ketones (Negative) Urine Blood (Negative) Urine Nitrite (Negative) Urine Bilirubin (Negative) Urine Urobilinogen (<2.0) mg/dL Ur Leukocyte Esterase (Negative) 10/22/23 Range/Units 10:43 WBC (3.8-10.6) k/uL RBC (4.30-5.90) m/uL Hgb (13.0-17.5) gm/dL Hct (39.0-53.0) % MCV (80.0-100.0) fL MCH (25.0-35.0) pg MCHC (31.0-37.0) g/dL RDW (11.5-15.5) % Plt Count (150-450) k/uL MPV Neutrophils % % Lymphocytes % % Monocytes % % Eosinophils % % Basophils % % Neutrophils # (1.3-7.7) k/uL Lymphocytes # (1.0-4.8) k/uL Monocytes # (0-1.0) k/uL Eosinophils # (0-0.7) k/uL Basophils # (0-0.2) k/uL Sodium (137-145) mmol/L Potassium (3.5-5.1) mmol/L Chloride (98-107) mmol/L Carbon Dioxide (22-30) mmol/L Anion Gap mmol/L BUN (9-20) mg/dL Creatinine (0.66-1.25) mg/dL Est GFR (CKD-EPI)AfAm (>60 ml/min/1.73 sqM) Est GFR (CKD-EPI)NonAf (>60 ml/min/1.73 sqM) Glucose (74-99) mg/dL Plasma Lactic Acid Chai (0.7-2.0) mmol/L Calcium (8.4-10.2) mg/dL Total Bilirubin (0.2-1.3) mg/dL AST (17-59) U/L ALT (4-49) U/L Alkaline Phosphatase (38-126) U/L Total Protein (6.3-8.2) g/dL Albumin (3.5-5.0) g/dL Lipase (23-300) U/L Urine Color Yellow Urine Appearance Clear (Clear) Urine pH 6.0 (5.0-8.0) Ur Specific [place] 1.028 (1.001-1.035) Urine Protein Trace H (Negative) Urine Glucose (UA) Negative (Negative) Urine Ketones Negative (Negative) Urine Blood Negative (Negative) Urine Nitrite Negative (Negative) Urine Bilirubin Negative (Negative) Urine Urobilinogen 2.0 (<2.0) mg/dL Ur Leukocyte Esterase Negative (Negative) Disposition Clinical Impression: Abdominal pain, Internal hernia Disposition: ADMITTED IP TO THIS [facility] Condition: Stable Is patient prescribed a controlled substance at d/c from ED?: No Time of Disposition: 14:09 Decision to Admit Reason: Admit from EC Decision Date: 10/22/23 Decision Time: 14:09
--- NOTE | 2023-10-22 12:50 | CT ---
EXAMINATION TYPE: CT abdomen pelvis w con CT DLP: 1880.1 mGycm, Automated exposure control for dose reduction was used. DATE OF EXAM: 10/22/2023 11:29 AM COMPARISON: CT abdomen pelvis most recent from CLINICAL INDICATION:Male, 37 years old with history of diffuse abd pain, vomiting; Diffuse abdominal pain and vomiting since Midnight TECHNIQUE: Axial CT abdomen pelvis w con;Sagittal and coronal reformats were created on a separate w orkstation. Contrast used:100 ml mL of Isovue 300 with IV Contrast, (none if empty) Oral contrast used: without Oral Contrast (none if empty) FINDINGS: LOWER CHEST: Unremarkable ABDOMEN LIVER: Unremarkable GALLBLADDER AND BILE DUCTS: Unremarkable. PANCREAS: Unremarkable. SPLEEN: Unremarkable. ADRENAL GLANDS: Unremarkable. KIDNEYS AND URETERS: No evidence of hydronephrosis or renal calculus. The ureters are unremarkable. PELVIS BLADDER: Unremarkable REPRODUCTIVE: Unremarkable. ABDOMEN & PELVIS STOMACH AND BOWEL: Mesenteric fat stranding is present. Nondilated minutes and small bowel are seen in the mid left lower quadrant of the abdomen internal hernia, volvulus, enteritis or other process m ight be considered No evidence of bowel obstruction. PERITONEUM/RETROPERITONEUM: No evidence of pneumoperitoneum or free fluid. VASCULATURE: No evidence of aortic aneurysm. MUSCULOSKELETAL: No acute osseous abnormalities LYMPH NODES: No gross evidence for lymphadenopathy. SOFT TISSUE/ABDOMINAL WALL: Unremarkable IMPRESSION: 1. No dilated bowel suggesting obstruction. 2. Hairpin loops of bowel in the mid to central left lower quadrant are worrisome for internal hernia or volvulus. Surgery consult recommended.
[2023-10-22] MEDS ORDERED: NALOXONE 0.4 MG/ML 1 ML VIAL IV PRN ×2 (14:09→19:06)
--- NOTE | 2023-10-22 15:26 | P.GSHP ---
History of Present Illness H&P Date: 10/22/23 CHIEF COMPLAINT: abdominal pain HISTORY OF PRESENT ILLNESS: This is a 37-year-old male who presented to the hospital with complaints of shooting abdominal pain across the lower abdomen. Patient reports pain is more intense in the left lower abdomen. Patient rates his pain 10 on a 10 prior to admission and now currently about a 7 out of 10. He had been having nausea and vomiting. Patient reports symptoms started at midnight. He has had loose watery stools and flatus. A CT scan abdomen pelvis reported concerns of possible internal hernia. He had leukocytosis on admission. Denies any cardiac history. Denies any prior history of colonoscopy. Denies being on any blood thinners. He denies any prior abdominal surgeries PAST MEDICAL HISTORY: Percy Norman syndrome, chronic back pain PAST SURGICAL HISTORY: See below MEDICATIONS: See below ALLERGIES: See below SOCIAL HISTORY: No illicit drug use. REVIEW OF SYSTEMS: CONSTITUTIONAL: Denies fever or chills. HEENT: Denies blurred vision, vision changes, or eye pain. Denies hemoptysis CARDIOVASCULAR: Denies chest pain or pressure. RESPIRATORY: No shortness of breath. GASTROINTESTINAL: See HPI for pertinent findings HEMATOLOGIC: Denies bleeding disorders. GENITOURINARY: Denies any blood in urine or increased urinary frequency. SKIN: Denies pruitis. Denies rash. PHYSICAL EXAM: VITAL SIGNS: Reviewed GENERAL: Well-developed in no acute distress. HEENT: No sclera icterus. Extraocular movements grossly intact. Moist buccal mucosa. Head is atraumatic, normocephalic. No nasal drainage. ABDOMEN: Soft. Mildly distended. Tenderness to palpation across the lower abdomen and more tender in the left lower quadrant NEUROLOGIC: Alert and oriented. Cranial nerves II through XII grossly intact. LABORATORY DATA: WBC is 12 Hgb 13.8 platelets 244 Sodium is 137 potassium 4.2 creatinine 1.30 Lactic acid 1.1 Total bilirubin 1.1 LFTs are normal lipase 122 IMAGING: CT scan abdomen pelvis reports no dilated bowel suggesting obstruction. Hairpin loops of bowel in the mid to center left lower quadrant are worrisome for internal hernia or volvulus. ASSESSMENT: 1. Internal hernia noted on CT scan 2. Abdominal pain PLAN: -Patient scheduled for lysis of adhesions today with Dr. Santillan -Keep patient n.p.o. -Continue IV fluids -Continue pain medication -Continue antiemetics as needed Physician Wiener Packer note has been reviewed by physician. Signing provider agrees with the documented findings, assessment, and plan of care. Past Medical History Past Medical History: Osteoarthritis (OA) Additional Past Medical History / Comment(s): Guillian barre syndrome, chronic back pain History of Any Multi-Drug Resistant Organisms: None Reported Past Surgical History: Orthopedic Surgery Additional Past Surgical History / Comment(s): kidney polyps removed in left kidney, lt shoulder Past Anesthesia/Blood Transfusion Reactions: No Reported Reaction Past Psychological History: No Psychological Hx Reported Smoking Status: Never smoker Past Alcohol Use History: Occasional Past Drug Use History: None Reported Medications and Allergies Home Medications Medication Instructions Recorded Confirmed Type Escitalopram [Lexapro] 10 mg PO HS 12/27/21 10/22/23 History Losartan Potassium [Cozaar] 25 mg PO HS 12/27/21 10/22/23 History allopurinoL [Zyloprim] 100 mg PO HS 12/27/21 10/22/23 History hydrOXYzine pamoate [Vistaril] 50 mg PO HS PRN 12/27/21 10/22/23 History Lumateperone Tosylate [Caplyta] 42 mg PO HS 10/22/23 10/22/23 History Allergies Allergy/AdvReac Type Severity Reaction Status Date / Time meperidine [From Demerol] Allergy Rash/Hives Verified 10/22/23 13:59 morphine Allergy Rash/Hives Verified 10/22/23 13:59 Surgical - Exam Vital Signs Temp Pulse Resp BP Pulse Ox 99 F 110 H 24 130/74 99 10/22/23 08:14 10/22/23 08:14 10/22/23 08:14 10/22/23 08:14 10/22/23 08:14 Results - Labs 10/22/23 09:00 10/22/23 09:00 Abnormal Lab Results - Last 24 Hours (Table) 10/22/23 10/22/23 10/22/23 Range/Units 09:00 09:00 10:43 WBC 12.0 H (3.8-10.6) k/uL Neutrophils # 10.8 H (1.3-7.7) k/uL Lymphocytes # 0.5 L (1.0-4.8) k/uL Creatinine 1.30 H (0.66-1.25) mg/dL Glucose 130 H (74-99) mg/dL Urine Protein Trace H (Negative) Diabetes panel 10/22/23 Range/Units 09:00 Sodium 137 (137-145) mmol/L Potassium 4.2 (3.5-5.1) mmol/L Chloride 107 (98-107) mmol/L Carbon Dioxide 23 (22-30) mmol/L BUN 10 (9-20) mg/dL Creatinine 1.30 H (0.66-1.25) mg/dL Glucose 130 H (74-99) mg/dL Calcium 8.9 (8.4-10.2) mg/dL AST 46 (17-59) U/L ALT 33 (4-49) U/L Alkaline Phosphatase 94 (38-126) U/L Total Protein 6.4 (6.3-8.2) g/dL Albumin 4.1 (3.5-5.0) g/dL Calcium panel 10/22/23 Range/Units 09:00 Calcium 8.9 (8.4-10.2) mg/dL Albumin 4.1 (3.5-5.0) g/dL Pituitary panel 10/22/23 Range/Units 09:00 Sodium 137 (137-145) mmol/L Potassium 4.2 (3.5-5.1) mmol/L Chloride 107 (98-107) mmol/L Carbon Dioxide 23 (22-30) mmol/L BUN 10 (9-20) mg/dL Creatinine 1.30 H (0.66-1.25) mg/dL Glucose 130 H (74-99) mg/dL Calcium 8.9 (8.4-10.2) mg/dL Adrenal panel 10/22/23 Range/Units 09:00 Sodium 137 (137-145) mmol/L Potassium 4.2 (3.5-5.1) mmol/L Chloride 107 (98-107) mmol/L Carbon Dioxide 23 (22-30) mmol/L BUN 10 (9-20) mg/dL Creatinine 1.30 H (0.66-1.25) mg/dL Glucose 130 H (74-99) mg/dL Calcium 8.9 (8.4-10.2) mg/dL Total Bilirubin 1.1 (0.2-1.3) mg/dL AST 46 (17-59) U/L ALT 33 (4-49) U/L Alkaline Phosphatase 94 (38-126) U/L Total Protein 6.4 (6.3-8.2) g/dL Albumin 4.1 (3.5-5.0) g/dL Assessment and Plan Plan: computed tomography scan suggested internal hernia or volvulus. Patient was scheduled for exploratory laparotomy lysis of adhesion.
[2023-10-22] MEDS: HYDROmorphone 1 MG/ML 1 ML SYRINGE IVP PRN (16:15)
[2023-10-22] MEDS: SODIUM CHLORIDE 0.9% 1,000 ML IV SCH (16:16)
[2023-10-22] MEDS ORDERED: HYDROmorphone 0.5 MG/0.5 ML SYRINGE IVP PRN (16:40)
[2023-10-22] MEDS ORDERED: HYDROmorphone 1 MG/ML 1 ML SYRINGE IVP PRN (16:41)
[2023-10-22] MEDS ORDERED: ceFAZolin 1 GM/50 ML BAG (PMX) ONE (18:10)
[2023-10-22] MEDS ORDERED: LIDOCAINE 1% INJ 10MG/ML (20 ML MDV) ONE (18:10)
[2023-10-22] MEDS ORDERED: fentaNYL (PF) 50 MCG/ML 2 ML AMP ONE (18:10)
[2023-10-22] MEDS ORDERED: SUCCINYLCHOLINE CHLORIDE 200 MG/10 ML VIAL IV ONE (18:10)
[2023-10-22] MEDS ORDERED: NEOSTIGMINE 1 MG/ML 10 ML VIAL ONE (18:10)
[2023-10-22] MEDS ORDERED: PROPOFOL 10 MG/ML 20 ML VIAL IV ONE (18:10)
[2023-10-22] MEDS ORDERED: ROCURONIUM 10 MG/ML (5 ML VIAL) IV ONE (18:10)
[2023-10-22] MEDS ORDERED: HYDROmorphone (PF) 1 MG/ML ONE (18:10)
[2023-10-22] MEDS ORDERED: PHENYLEPHRINE-0.9% NACL SYG 1,000 MCG/10 ML SYRINGE ONE (18:10)
[2023-10-22] MEDS ORDERED: GLYCOPYRROLATE 0.2 MG/ML 2 ML VIAL ONE (18:10)
[2023-10-22] MEDS ORDERED: MIDAZOLAM 2 MG/2 ML VIAL ONE (18:10)
[2023-10-22] MEDS: SODIUM CHLORIDE 0.9% 1,000 ML IV ONE ×2 (18:10→21:55)
[2023-10-22] MEDS: SODIUM CHLORIDE 0.9% 100 ML with ceFAZolin 2,000 MG IV ONE (18:34)
[2023-10-22] MEDS: LACTATED RINGERS 1,000 ML IV ONE (19:05)
[2023-10-22] MEDS ORDERED: ONDANSETRON 4 MG/2 ML VIAL IVP PRN (19:06)
--- NOTE | 2023-10-22 19:43 | P.OP ---
Date of Procedure: 10/22/23 Preoperative Diagnosis: internal hernia Postoperative Diagnosis: small bowel inflammation Procedure(s) Performed: exploratory laparotomy Small bowel resection Anesthesia: JASPAL Surgeon: David Santillan Estimated Blood Loss (ml): 50 Pathology: other (jejunum) Condition: stable Disposition: PACU Operative Findings: Enteritis Description of Procedure: the patient was placed on the operative table in the supine position. He received general endotracheal tube anesthesia. His abdomen was prepped and draped in usual fashion. A midline skin incision was made. I then use electrocautery the abdominal wall was divided. The Bookwalter retractor placed the wound. Upon entering the abdomen the small bowel appeared to be inflamed. The abs explore. The stomach appeared normal. The duodenum appeared normal. The jejunum appeared normal. In the proximal ileum there was evidence of inflammatory change. There was a white exudative plaque on the small bowel and the bowel appeared to be thickened. The distal ileum appeared normal. The right colon, transverse colon and descending colon appeared normal. There appears to be a few diverticuli on the sigmoid colon however there is no evidence of diverticulitis. It appears that the patient may have had a microperforation of the small bowel. The inflamed portion of bowel was then transected proximally distally using the JANAY stapler. the mesentery was then divided with the LigaSure device. The specimen sent to pathology. A [id number] functional end-to-end staple anastomosis then created using a JANAY and TA stapler. The mesentery and the bowel was closed using 3-0 GI silk suture. The abdomen then irrigated there is no bleeding seen. The fascia was closed with looped #1 PDS suture. Skin was closed with latricia. Patient tolerated procedure well. He was sent to recovery room in stable condition.
[2023-10-22] MEDS: HYDROmorphone 0.5 MG/0.5 ML SYRINGE IVP ONE (19:49)
[2023-10-22] MEDS: LACTATED RINGERS 1,000 ML IV SCH (21:55)
[2023-10-22] MEDS: PANTOPRAZOLE 40 MG/10 ML VIAL IV SCH (22:11)
[2023-10-22] MEDS: KETOROLAC 15 MG/ML 1 ML VIAL IVP SCH (23:05)
[2023-10-22] MEDS: PIPERACILLIN-TAZOBACTAM 3.375 GM in SODIUM CHLORIDE 0.9% 100 ML IVPB SCH (23:06)
[2023-10-22] MEDS: HYDROmorphone 0.5 MG/0.5 ML SYRINGE IVP PRN (23:51)
[2023-10-23] MEDS: ONDANSETRON 4 MG/2 ML VIAL IVP PRN (05:57)
[2023-10-23] MEDS: ENOXAPARIN 40 MG/0.4 ML SYRINGE SQ SCH (07:54)
[2023-10-23] MEDS: METOCLOPRAMIDE 5 MG/ML 2 ML VIAL IVP PRN (08:46)
[2023-10-23 08:52] LABS: Basophils # (A) 0.01 X 10*3/uL (0.00-0.10); Basophils % (A) 0.1 %; Eosinophils # (A) 0 X 10*3/uL (0.04-0.35); Eosinophils % (A) 0 %; HCT 38.6 % (39.6-50.0); HGB 12.3 g/dL (13.0-17.0); Lymphocytes # (A) 0.62 X 10*3/uL (0.90-5.00); Lymphocytes % (A) 6.3 %; MCH 26.6 pg (27.0-32.0); MCHC 31.9 g/dL (32.0-37.0); MCV 83.5 FL (80.0-97.0); Monocytes # (A) 0.65 X 10*3/uL (0.20-1.00); Monocytes % (A) 6.6 %; NRBC Per 100 WBC 0 X 10*3/uL (0.00-0.01); Neutrophils # (A) 8.56 X 10*3/uL (1.80-7.70); Neutrophils % (A) 86.6 %; Platelet Count 246 X 10*3/uL (140-440); RBC 4.62 X 10*6/uL (4.40-5.60); RDW 15.5 % (11.5-14.5); WBC 9.88 X 10*3/uL (4.50-10.00)
[2023-10-23 09:27] LABS: BUN/Creat Ratio 10.73 Ratio (12.00-20.00); Blood Urea Nitrogen 11.8 mg/dL (9.0-27.0); Calcium 7.9 mg/dL (8.7-10.3); Carbon Dioxide 24.6 mmol/L (21.6-31.8); Chloride 105 mmol/L (96-109); Glucose 118 mg/dL (70-110); Potassium 3.9 mmol/L (3.5-5.5); Sodium 139 mmol/L (135-145)
[2023-10-23] MEDS: NICOTINE 14MG/24HR PATCH TRANSDERM SCH (12:29)
[2023-10-23] MEDS ORDERED: LORazepam 2 MG/ML INJ IV PRN ×2 (13:21)
[2023-10-23] MEDS: FOLIC ACID 1 MG TAB PO SCH (13:55)
[2023-10-23] MEDS: THIAMINE 100 MG/ML 2 ML VIAL IM STA (15:18)
--- NOTE | 2023-10-23 15:43 | P.PN ---
Subjective Progress Note Date: 10/23/23 CHIEF COMPLAINT: Abdominal pain HISTORY OF PRESENT ILLNESS: Patient is postop day #1 status post exploratory laparotomy with small bowel resection for small bowel inflammation. Pathology pending. Patient reports his pain feels different today. Morbid incisional pain. He denies any nausea or vomiting. Denies any flatus. Patient did have a fever 4:00 yesterday 101. WBC has come down from 12-9.8 hemoglobin 12.3 sodium is 139 potassium 3.9 creatinine 1.1. Urine output improving PHYSICAL EXAM: VITAL SIGNS: Reviewed. GENERAL: Well-developed in no acute distress. ABDOMEN: Soft. Nondistended. Prevana wound vac intact. Abdominal binder in place NEUROLOGIC: Alert and oriented. Cranial nerves II through XII grossly intact. ASSESSMENT: 1. Small bowel inflammation status post exploratory laparotomy with small bowel resection PLAN: -Continue clear liquid diet -Continue pain management -Follow-up on pathology results -Encourage patient to ambulate -Incentive spirometer ordered -Continue IV fluids. Nursing staff adjusting fluids and antibiotics with patient does receive continuous IV fluids. -GI prophylaxis Protonix and DVT prophylaxis Lovenox Physician Scale Balancer note has been reviewed by physician. Signing provider agrees with the documented findings, assessment, and plan of care. Objective - Vital Signs Vital signs: Vital Signs Temp 97.9 F 10/23/23 07:06 Pulse 87 10/23/23 07:06 Resp 18 10/23/23 07:06 BP 107/71 10/23/23 07:06 Pulse Ox 91 L 10/23/23 07:06 FiO2 Intake & Output 10/22/23 10/23/23 10/23/23 18:59 06:59 18:59 Intake Total 900 500 Output Total 600 600 Balance 900 -100 -600 Weight 117.934 kg Intake: IV 900 500 Output: Urine 550 600 Uretheral ([place]) 600 Estimated Blood Loss 50 Other: Voiding Method Indwelling Catheter Indwelling Catheter - Labs CBC & Chem 7: 10/23/23 06:15 10/23/23 06:15 Labs: Abnormal Lab Results - Last 24 Hours (Table) 10/23/23 10/23/23 Range/Units 06:15 06:15 Hgb 12.3 L (13.0-17.0) g/dL Hct 38.6 L (39.6-50.0) % MCH 26.6 L (27.0-32.0) pg MCHC 31.9 L (32.0-37.0) g/dL RDW 15.5 H (11.5-14.5) % Neutrophils # 8.56 H (1.80-7.70) X 10*3/uL Lymphocytes # 0.62 L (0.90-5.00) X 10*3/uL Eosinophils # 0 L (0.04-0.35) X 10*3/uL BUN/Creatinine Ratio 10.73 L (12.00-20.00) Ratio Glucose 118 H (70-110) mg/dL Calcium 7.9 L (8.7-10.3) mg/dL
--- NOTE | 2023-10-23 16:51 | P.CONS ---
History of Present Illness - Reason for Consult Consult date: 10/23/23 Medical management Requesting physician: David Santillan - Chief Complaint Abdominal pain - History of Present Illness This is a 37-year-old morbidly obese gentleman with past medical history significant for chronic back pain, Guillian Norman syndrome, osteoarthritis, nicotine dependence-chews, alcohol use and multiple other medical issues status post exploratory laparotomy, small bowel resection. (Abdominal CT reported no dilated bowel suggesting obstruction, hairpin loops of bowel in the mid to central lower quadrant worrisome for internal hernia or volvulus.) On a dmission, tachycardic, Tmax 101.6, WBC returned to normal. Maintained on Zosyn, no blood cultures.hemoglobin 12.3, platelets 246. Electrolytes within normal limits, renal function stable with creatinine decreased to 1.1, from 1.3. Blood sugars controlled. UA negative. Serum alcohol less than 10. ID consult in place. Review of Systems ROS Statement: Those systems with pertinent positive or pertinent negative responses have been documented in the HPI. ROS Other: All systems not noted in ROS Statement are negative. Past Medical History Past Medical History: Osteoarthritis (OA) Additional Past Medical History / Comment(s): Guillian barre syndrome, chronic back pain History of Any Multi-Drug Resistant Organisms: None Reported Past Surgical History: Orthopedic Surgery Additional Past Surgical History / Comment(s): kidney polyps removed in left kidney, lt shoulder Past Anesthesia/Blood Transfusion Reactions: No Reported Reaction Past Psychological History: No Psychological Hx Reported Smoking Status: Never smoker Past Alcohol Use History: Occasional Past Drug Use History: None Reported Medications and Allergies Home Medications Medication Instructions Recorded Confirmed Type Escitalopram [Lexapro] 10 mg PO HS 12/27/21 10/22/23 History Losartan Potassium [Cozaar] 25 mg PO HS 12/27/21 10/22/23 History allopurinoL [Zyloprim] 100 mg PO HS 12/27/21 10/22/23 History hydrOXYzine pamoate [Vistaril] 50 mg PO HS PRN 12/27/21 10/22/23 History Lumateperone Tosylate [Caplyta] 42 mg PO HS 10/22/23 10/22/23 History Allergies Allergy/AdvReac Type Severity Reaction Status Date / Time meperidine [From Demerol] Allergy Rash/Hives Verified 04/22/24 13:59 morphine Allergy Rash/Hives Verified 10/22/23 13:59 Physical Exam Vitals: Vital Signs Temp Pulse Pulse Resp BP BP Pulse Ox 10/23/23 07:06 97.9 F 87 18 107/71 91 L 10/23/23 00:40 98.9 F 93 20 130/79 94 L 10/22/23 23:00 97 125/79 92 L 10/22/23 22:45 101 H 126/77 91 L 10/22/23 22:30 115 H 125/75 95 10/22/23 22:15 104 H 129/73 92 L 10/22/23 22:00 109 H 132/85 93 L 10/22/23 21:45 97 128/83 94 L 10/22/23 21:30 102 H 130/80 93 L 10/22/23 21:15 105 H 131/83 94 L 10/22/23 21:00 102 H 17 133/77 93 L 10/22/23 20:12 102 H 23 124/74 92 L 10/22/23 19:56 105 H 25 H 129/77 90 L 10/22/23 19:40 113 H 16 125/74 95 10/22/23 19:25 99.5 F 106 H 22 119/69 95 10/22/23 17:00 98 20 113/66 97 10/22/23 16:07 101.6 F H 107 H 18 134/89 96 10/22/23 13:00 87 20 134/89 98 Intake and Output 10/22/23 10/23/23 10/23/23 22:59 06:59 14:59 Intake Total 1400 Output Total 125 475 Balance 1275 -475 Intake: IV 1400 Output: Urine 75 475 Estimated Blood Loss 50 Other: Voiding Method Indwelling Catheter Indwelling Catheter PHYSICAL EXAM: VITAL SIGNS: [As above] GENERAL: Obese, alert and oriented x 3, sitting up in bed, diffuse diaphoresis,NAD HEENT: Normocephalic conjunctivae normal. eyes normal. NECK: Supple, no JVD. No thyroid enlargement. No LNs CARDIOVASCULAR: S1, S2 regular.. No murmur RESPIRATION: Unlabored, equal air entry ,breath sounds diminished in the bases. No rhonchi or crackles. No bronchial breathing. ABDOMEN: Soft, status post surgery, binder/Prevana wound vac present, LEGS: No edema. no swelling NERVOUS SYSTEM: Cranial N 2-12 grossly normal. No focal deficits. Skin: Forehead diaphoretic, no rashes noted Results CBC & Chem 7: 10/23/23 06:15 10/23/23 06:15 Labs: Abnormal Lab Results - Last 24 Hours (Table) 10/23/23 10/23/23 Range/Units 06:15 06:15 Hgb 12.3 L (13.0-17.0) g/dL Hct 38.6 L (39.6-50.0) % MCH 26.6 L (27.0-32.0) pg MCHC 31.9 L (32.0-37.0) g/dL RDW 15.5 H (11.5-14.5) % Neutrophils # 8.56 H (1.80-7.70) X 10*3/uL Lymphocytes # 0.62 L (0.90-5.00) X 10*3/uL Eosinophils # 0 L (0.04-0.35) X 10*3/uL BUN/Creatinine Ratio 10.73 L (12.00-20.00) Ratio Glucose 118 H (70-110) mg/dL Calcium 7.9 L (8.7-10.3) mg/dL Assessment and Plan Assessment: Sepsis secondary to abdominal pain , CT reported internal hernia, status post exploratory laparotomy with small bowel resection. Guillian Norman syndrome Chronic back pain Osteoarthritis Morbid obesity, BMI 37.3 Alcohol use Nicotine dependence, chews Plan: Continue on current medication regimen ,monitoring and symptomatic treatm ent. Infectious disease consult in place, recommendations pending. CIWA protocol initiated. Pain management, DVT prophylaxis as per general surgery. Aggressive pulmonary toileting with incentive spirometer reinforced.Cessation of chewing tobacco reinforced, nicotine patch ordered. Thank you for the consult. The impression and plan of care has been dictated as directed. : I performed a history and examination of this patient, discussed the same with the dictator. I agree with the dictator's note ,documented as a scribe. Any additional findings or plans will be noted.
[2023-10-23] MEDS: LORazepam 2 MG/ML INJ IV PRN (17:04)
[2023-10-23] MEDS: MELATONIN 3 MG TABLET PO SCH (21:08)
--- NOTE | 2023-10-23 21:56 | P.CONS ---
History of Present Illness - Reason for Consult Consult date: 10/23/23 - History of Present Illness Patient is a 37-year-old male with a past medical history significant for chronic back pain presenting to the hospital yesterday morning for evaluation of abdominal pain starting in the middle of the night before presentation to the hospital patient describes the pain to be sudden severe sharp in nature mostly diffuse intensity almost under 10 with associated nausea and vomiting and did have some watery diarrhea patient denies any blood in the stool on presentation to the hospital he was afebrile however he did spike a fever of 101.6 degree for night yesterday afternoon patient was tachycardic but not hypotensive or hypoxic and no need for supplemental oxygen he did have a wh ite count of 12,000 creatinine was 1.30 liver enzymes are normal urine has been negative serum alcohol was less than 10 patient did have a CT abdominal pelvis no dilated bowel suggesting obstruction loops of the bowel in the mid to central lower quadrant worrisome for internal hernia versus volvulus patient was eval by general surgery was taken to the OR operative report mention explained laparoto my small bowel resection with a postoperative diagnosis of small bowel inflammation no clear documentation of any perforation no OR or blood cultures were done, patient has been started on Zosyn infectious disease was consulted for further management of antibiotic therapy Past Medical History Past Medical History: Osteoarthritis (OA) Additional Past Medical History / Comment(s): Guillian barre syndrome, chronic back pain History of Any Multi-Drug Resistant Organisms: None Reported Past Surgical History: Orthopedic Surgery Additional Past Surgical History / Comment(s): kidney polyps removed in left kidney, lt shoulder Past Anesthesia/Blood Transfusion Reactions: No Reported Reaction Past Psychological History: No Psychological Hx Reported Smoking Status: Never smoker Past Alcohol Use History: Occasional Past Drug Use History: None Reported Medications and Allergies Home Medications Medication Instructions Recorded Confirmed Type Escitalopram [Lexapro] 10 mg PO HS 12/27/21 10/22/23 History Losartan Potassium [Cozaar] 25 mg PO HS 12/27/21 10/22/23 History allopurinoL [Zyloprim] 100 mg PO HS 12/27/21 10/22/23 History hydrOXYzine pamoate [Vistaril] 50 mg PO HS PRN 12/27/21 10/22/23 History Lumateperone Tosylate [Caplyta] 42 mg PO HS 10/22/23 10/22/23 History Allergies Allergy/AdvReac Type Severity Reaction Status Date / Time meperidine [From Demerol] Allergy Rash/Hives Verified 10/22/23 13:59 morphine Allergy Rash/Hives Verified 10/22/23 13:59 Physical Exam Vitals: Vital Signs Temp Pulse Pulse Resp BP BP Pulse Ox 10/23/23 07:06 97.9 F 87 18 107/71 91 L 10/23/23 00:40 98.9 F 93 20 130/79 94 L 10/22/23 23:00 97 125/79 92 L 10/22/23 22:45 101 H 126/77 91 L 10/22/23 22:30 115 H 125/75 95 10/22/23 22:15 104 H 129/73 92 L 10/22/23 22:00 109 H 132/85 93 L 10/22/23 21:45 97 128/83 94 L 10/22/23 21:30 102 H 130/80 93 L 10/22/23 21:15 105 H 131/83 94 L 10/22/23 21:00 102 H 17 133/77 93 L 10/22/23 20:12 102 H 23 124/74 92 L 10/22/23 19:56 105 H 25 H 129/77 90 L 10/22/23 19:40 113 H 16 125/74 95 10/22/23 19:25 99.5 F 106 H 22 119/69 95 10/22/23 17:00 98 20 113/66 97 10/22/23 16:07 101.6 F H 107 H 18 134/89 96 10/22/23 13:00 87 20 134/89 98 Intake and Output 10/22/23 10/23/23 10/23/23 22:59 06:59 14:59 Intake Total 1400 Output Total 125 475 Balance 1275 -475 Intake: IV 1400 Output: Urine 75 475 Estimated Blood Loss 50 Other: Voiding Method Indwelling Catheter Indwelling Catheter Results CBC & Chem 7: 10/25/23 05:53 10/25/23 05:53 Labs: Abnormal Lab Results - Last 24 Hours (Table) 10/23/23 10/23/23 Range/Units 06:15 06:15 Hgb 12.3 L (13.0-17.0) g/dL Hct 38.6 L (39.6-50.0) % MCH 26.6 L (27.0-32.0) pg MCHC 31.9 L (32.0-37.0) g/dL RDW 15.5 H (11.5-14.5) % Neutrophils # 8.56 H (1.80-7.70) X 10*3/uL Lymphocytes # 0.62 L (0.90-5.00) X 10*3/uL Eosinophils # 0 L (0.04-0.35) X 10*3/uL BUN/Creatinine Ratio 10.73 L (12.00-20.00) Ratio Glucose 118 H (70-110) mg/dL Calcium 7.9 L (8.7-10.3) mg/dL Assessment and Plan Plan: 1patient presented hospital with sepsis in this patient who did have a fever tachycardia elevated white count presented with abdominal pain and concerning for internal herniation and possible small bowel inflammation/ischemia s/p resection with no clear documentation of any perforation he will need to cover for the enteric gram-negative aerobes and anaerobes to the likely pathogen 2-patient already has been antibiotic for almost 24 hours no blood cultures were done and will more likely be of little significance at this point hence we will hold on ordering any culture 3-patient adequately covered with Zosyn 3.37 g every 8 hours to continue with the discharge antibiotic on base of his clinical response Family bedside question concern answered We will follow on clinical condition and cultures to further adjust medication if needed Thank you for this consultation we will follow the patient along with you Dictation was produced using [employer] dictation software. please excuse any gr ammatical, word or spelling errors. Time with Patient: Greater than 30
[2023-10-24] MEDS: THIAMINE 100 MG TAB PO SCH (09:15)
--- NOTE | 2023-10-24 14:37 | P.PN ---
Subjective Progress Note Date: 10/24/23 - History of Present Illness10/23/23 This is a 37-year-old morbidly obese gentleman with past medical history significant for chronic back pain, Guillian Norman syndrome, osteoarthritis, nicotine dependence-chews, alcohol use and multiple other medical issues status post exploratory laparotomy, small bowel resection. (Abdominal CT reported no dilated bowel suggesting obstruction, hairpin loops of bowel in the mid to central lower quadrant worrisome for internal hernia or volvulus.) On admission, tachycardic, Tmax 101.6, WBC returned to normal. Maintained on Zosyn, no blood cultures.hemoglobin 12.3, platelets 246. Electrolytes within normal limits, renal function stable with creatinine decreased to 1.1, from 1.3. Blood sugars controlled. UA negative. Serum alcohol less than 10. ID consult in place. 10/24/2023 maintained on IV Zosyn, Tmax 99.9. Tolerating clear liquids, denies nausea vomiting or diarrhea. Passing flatus. Positive pain, improving on Dilaudid IV push-has not yet attempted the [employer]. Objective - Vital Signs Vital signs: Vital Signs Temp 99.2 F 10/24/23 07:14 Pulse 95 10/24/23 07:50 Resp 18 10/24/23 07:50 BP 126/76 10/24/23 07:14 Pulse Ox 91 L 10/24/23 07:14 FiO2 Intake & Output 10/23/23 10/24/23 10/24/23 18:59 06:59 18:59 Output Total 1200 550 Balance -1200 -550 Output: Urine 1200 550 Uretheral ([place]) 600 200 Other: Voiding Method Indwelling Catheter Indwelling Catheter Indwelling Catheter # Voids 1 - Exam PHYSICAL EXAM: VITAL SIGNS: [As above] GENERAL: Obese, alert and oriented x 3, sitting up in bed,NAD HEENT: Normocephalic conjunctivae normal. eyes normal. NECK: Supple, no JVD. CARDIOVASCULAR: S1, S2 regular.. No murmur RESPIRATION: Unlabored, equal air entry ,breath sounds diminished in the bases. ABDOMEN: Soft, status post surgery, binder/Prevana wound vac present, LEGS: No edema. no swelling NERVOUS SYSTEM: Cranial N 2-12 grossly normal. No focal deficits. Skin: warm and dry, no rashes noted - Labs CBC & Chem 7: 10/23/23 06:15 10/23/23 06:15 Assessment and Plan Assessment: Sepsis secondary to abdominal pain , CT reported internal hernia, status post exploratory laparotomy with small bowel resection. Guillian Norman syndrome Chronic back pain Osteoarthritis Morbid obesity, BMI 37.3 Alcohol use Nicotine dependence, chews, counseled on cessation Plan: Continue on current medication regimen ,monitoring and symptomatic treatment. Antibiotics as per ID. WA protocol in place. Pain management/DVT prophylaxis as per general surgery. Aggressive pulmonary toileting with incentive spirometer reinforced.Increase ambulation as tolerated. The impression and plan of care has been dictated as directed. : I performed a history and examination of this patient, discussed the same with the dictator. I agree with the dictator's note ,documented as a scribe. Any additional findings or plans will be noted.
--- NOTE | 2023-10-24 15:50 | P.PN ---
Subjective Progress Note Date: 10/24/23 CHIEF COMPLAINT: Abdominal pain HISTORY OF PRESENT ILLNESS: Patient is postop day #2 status post exploratory laparotomy with small bowel resection for small bowel inflammation. Pathology pending. Patient does complain of abdominal pain. He denies any nausea or vomiting afebrile. He did ambulate. [place] catheter discontinued. Patient urinating. PHYSICAL EXAM: VITAL SIGNS: Reviewed. GENERAL: Well-developed in no acute distress. ABDOMEN: Soft. Nondistended. Prevana wound vac intact. Abdominal binder in place NEUROLOGIC: Alert and oriented. Cranial nerves II through XII grossly intact. ASSESSMENT: 1. Small bowel inflammation status post exploratory laparotomy with small bowel resection PLAN: -Advance diet to full liquids -Add [place] for oral pain medication -Continue pain management -Follow-up on pathology results -Encourage patient to ambulate -Incentive spirometer ordered -GI prophylaxis Protonix and DVT prophylaxis Lovenox Physician Utility Operator note has been reviewed by physician. Signing provider agrees with the documented findings, assessment, and plan of care. Objective - Vital Signs Vital signs: Vital Signs Temp 98.5 F 10/24/23 13:55 Pulse 104 H 10/24/23 13:55 Resp 18 10/24/23 13:55 BP 130/69 10/24/23 13:55 Pulse Ox 93 L 10/24/23 13:55 FiO2 Intake & Output 10/23/23 10/24/23 10/24/23 18:59 06:59 18:59 Output Total 1200 550 Balance -1200 -550 Output: Urine 1200 550 Uretheral ([place]) 600 200 Other: Voiding Method Indwelling Catheter Indwelling Catheter Indwelling Catheter # Voids 3 - Labs CBC & Chem 7: 10/23/23 06:15 10/23/23 06:15
[2023-10-24] MEDS: HYDROcodone/APAP 5-325MG 1 EACH TAB PO PRN (17:55)
[2023-10-24] MEDS ORDERED: hydrOXYzine pamoate 25 MG CAP PO PRN (22:20)
[2023-10-24] MEDS: NON FORMULARY DRUG (Lumateperone Tosylate [Caplyta] 42 MG Capsule) PO SCH (22:51)
[2023-10-24] MEDS: ESCITALOPRAM 10 MG TAB PO SCH (22:58)
[2023-10-24] MEDS: LOSARTAN 25 MG TAB PO SCH (22:58)
[2023-10-25 08:40] LABS: Basophils # (A) 0.01 X 10*3/uL (0.00-0.10); Basophils % (A) 0.2 %; Eosinophils # (A) 0 X 10*3/uL (0.04-0.35); Eosinophils % (A) 0 %; HCT 32.4 % (39.6-50.0); HGB 10.1 g/dL (13.0-17.0); Lymphocytes # (A) 0.46 X 10*3/uL (0.90-5.00); Lymphocytes % (A) 7.9 %; MCH 26.6 pg (27.0-32.0); MCHC 31.2 g/dL (32.0-37.0); MCV 85.3 FL (80.0-97.0); Mean Platelet Volume 10.2 FL (9.5-12.2); Monocytes # (A) 0.66 X 10*3/uL (0.20-1.00); Monocytes % (A) 11.4 %; NRBC Per 100 WBC 0 X 10*3/uL (0.00-0.01); Neutrophils # (A) 4.64 X 10*3/uL (1.80-7.70); Neutrophils % (A) 79.8 %; Platelet Count 225 X 10*3/uL (140-440); RDW 14.9 % (11.5-14.5); WBC 5.81 X 10*3/uL (4.50-10.00)
[2023-10-25 09:10] LABS: BUN/Creat Ratio 9.78 Ratio (12.00-20.00); Blood Urea Nitrogen 8.8 mg/dL (9.0-27.0); Calcium 7.8 mg/dL (8.7-10.3); Carbon Dioxide 26.4 mmol/L (21.6-31.8); Chloride 103 mmol/L (96-109); Glucose 132 mg/dL (70-110); Potassium 3.8 mmol/L (3.5-5.5); Sodium 138 mmol/L (135-145)
--- NOTE | 2023-10-25 09:48 | P.PN ---
Subjective Progress Note Date: 10/25/23 - History of Present Illness10/23/23 This is a 37-year-old morbidly obese gentleman with past medical history significant for chronic back pain, Guillian Norman syndrome, osteoarthritis, nicotine dependence-chews, alcohol use and multiple other medical issues status post exploratory laparotomy, small bowel resection. (Abdominal CT reported no dilated bowel suggesting obstruction, hairpin loops of bowel in the mid to central lower quadrant worrisome for internal hernia or volvulus.) On admission, tachycardic, Tmax 101.6, WBC returned to normal. Maintained on Zosyn, no blood cultures.hemoglobin 12.3, platelets 246. Electrolytes within normal limits, renal function stable with creatinine decreased to 1.1, from 1.3. Blood sugars controlled. UA negative. Serum alcohol less than 10. ID consult in place. 10/24/2023 maintained on IV Zosyn, Tmax 99.9. Tolerating clear liquids, denies nausea vomiting or diarrhea. Passing flatus. Positive pain, improving on Dilaudid IV push-has not yet attempted the [place]. 10/25/2023 hemoglobin decreased to 10.1, platelets 225, renal function stable. Maintaining O2 sats in the low 90s on room air. Pathology reporting small bowel tissue with active enteritis, submucosal edema, serous fibrous adhesions and abundant acute serositis. Margins benign and viable. Pain better controlled. Tolerating full liquids, positive bowel movement. Afebrile, Tmax 99.2, WBC 5.81. Objective - Vital Signs Vital signs: Vital Signs Temp 97.6 F 10/25/23 06:50 Pulse 73 10/25/23 06:50 Resp 17 10/25/23 06:50 BP 116/67 10/25/23 06:50 Pulse Ox 90 L 10/25/23 06:50 FiO2 Intake & Output 10/24/23 10/25/23 10/25/23 18:59 06:59 18:59 Intake Total 118 Balance 118 Intake: Oral 118 Other: Voiding Method Indwelling Catheter Toilet # Voids 3 3 - Exam PHYSICAL EXAM: VITAL SIGNS: [As above] GENERAL: Obese, alert and oriented x 3, NAD HEENT: Normocephalic conjunctivae normal. eyes normal. NECK: Supple, no JVD. CARDIOVASCULAR: S1, S2 regular.. No murmur RESPIRATION: Unlabored, equal air entry ,breath sounds diminished in the bases. ABDOMEN: Soft, status post surgery, binder/Prevana wound vac present, LEGS: No edema. no swelling NERVOUS SYSTEM: Cranial N 2-12 grossly normal. No focal deficits. Skin: warm and dry, no rashes noted - Labs CBC & Chem 7: 10/25/23 05:53 10/25/23 05:53 Labs: Abnormal Lab Results - Last 24 Hours (Table) 10/25/23 10/25/23 Range/Units 05:53 05:53 RBC 3.80 L (4.40-5.60) X 10*6/uL Hgb 10.1 L (13.0-17.0) g/dL Hct 32.4 L (39.6-50.0) % MCH 26.6 L (27.0-32.0) pg MCHC 31.2 L (32.0-37.0) g/dL RDW 14.9 H (11.5-14.5) % Lymphocytes # 0.46 L (0.90-5.00) X 10*3/uL Eosinophils # 0 L (0.04-0.35) X 10*3/uL BUN 8.8 L (9.0-27.0) mg/dL BUN/Creatinine Ratio 9.78 L (12.00-20.00) Ratio Glucose 132 H (70-110) mg/dL Calcium 7.8 L (8.7-10.3) mg/dL Assessment and Plan Assessment: Sepsis secondary to abdominal pain , CT reported internal hernia, status post exploratory laparotomy with small bowel resection. Pathology reporting small bowel tissue with active enteritis, submucosal edema, serous fibrous adhesions and abundant acute serositis. Margins benign and viable. Guillian Norman syndrome Chronic back pain Osteoarthritis Morbid obesity, BMI 37.3 Alcohol use Nicotine dependence, chews, counseled on cessation Plan: Continue on current medication regimen ,monitoring and symptomatic treatment. Maintain aggressive pulmonary toileting with incentive spirometer reinforced. Increase ambulation as tolerated. Antibiotics as per ID. Pain management. DVT and GI prophylaxis in place with Lovenox and PPI. The impression and plan of care has been dictated as directed. : I performed a history and examination of this patient, discussed the same with the dictator. I agree with the dictator's note ,documented as a scribe. Any additional findings or plans will be noted.
--- NOTE | 2023-10-25 14:13 | P.PN ---
Subjective Progress Note Date: 10/25/23 CHIEF COMPLAINT: Abdominal pain HISTORY OF PRESENT ILLNESS: Patient is postop day #3 status post exploratory laparotomy with small bowel resection for small bowel inflammation. Patient sitting at bedside chair. His pain is controlled. He reports he still requiring IV pain medication. He is having bowel movements. Afebrile. WBC is 5.8 Hgb 10.1 platelets 225 pathology results reports small bowel tissue with active enteritis, submucosal edema, serosal fibrous adhesions and abundant acute serositis. Margins benign and viable. PHYSICAL EXAM: VITAL SIGNS: Reviewed. GENERAL: Well-developed in no acute distress. ABDOMEN: Soft. Nondistended. Prevana wound vac intact. Abdominal binder in place NEUROLOGIC: Alert and oriented. Cranial nerves II through XII grossly intact. ASSESSMENT: 1. Small bowel inflammation status post exploratory laparotomy with small bowel resection PLAN: -Continue full liquids -Continue pain management -Encourage patient to ambulate -Incentive spirometer ordered -GI prophylaxis Protonix and DVT prophylaxis Lovenox Physician Athletics Director note has been reviewed by physician. Signing provider agrees with the documented findings, assessment, and plan of care. Objective - Vital Signs Vital signs: Vital Signs Temp 97.6 F 10/25/23 06:50 Pulse 73 10/25/23 07:35 Resp 17 10/25/23 07:35 BP 116/67 10/25/23 06:50 Pulse Ox 90 L 10/25/23 06:50 FiO2 Intake & Output 10/24/23 10/25/23 10/25/23 18:59 06:59 18:59 Intake Total 118 Balance 118 Intake: Oral 118 Other: Voiding Method Indwelling Catheter Toilet Toilet # Voids 3 3 - Labs CBC & Chem 7: 10/25/23 05:53 10/25/23 05:53 Labs: Abnormal Lab Results - Last 24 Hours (Table) 10/25/23 10/25/23 Range/Units 05:53 05:53 RBC 3.80 L (4.40-5.60) X 10*6/uL Hgb 10.1 L (13.0-17.0) g/dL Hct 32.4 L (39.6-50.0) % MCH 26.6 L (27.0-32.0) pg MCHC 31.2 L (32.0-37.0) g/dL RDW 14.9 H (11.5-14.5) % Lymphocytes # 0.46 L (0.90-5.00) X 10*3/uL Eosinophils # 0 L (0.04-0.35) X 10*3/uL BUN 8.8 L (9.0-27.0) mg/dL BUN/Creatinine Ratio 9.78 L (12.00-20.00) Ratio Glucose 132 H (70-110) mg/dL Calcium 7.8 L (8.7-10.3) mg/dL
--- NOTE | 2023-10-25 14:36 | P.PN ---
Subjective Progress Note Date: 10/24/23 Principal diagnosis: Reason for follow-up is sepsis abdominal source Patient is a 37-year-old male with a past medical history significant for chronic back pain presenting to the hospital for evaluation of abdominal pain and fever, CT abdominal pelvis suspicious for internal hernia possible obstruction s/p laparotomy small bowel resection. On today's evaluation that is 10/24/2023,the patient did have improvement in his fever pattern and is afebrile this afternoon patient abdominal pain slightly decreased patient did have a burping and passing gas but no bowel movement no chest pain shortness of breath or cough Patient white count normalized to 9.88 as of yesterday no lab draw today Objective - Vital Signs Vital signs: Vital Signs Temp 99.2 F 10/24/23 07:14 Pulse 95 10/24/23 07:50 Resp 18 10/24/23 07:50 BP 126/76 10/24/23 07:14 Pulse Ox 91 L 10/24/23 07:14 FiO2 Intake & Output 10/23/23 10/24/23 10/24/23 18:59 06:59 18:59 Output Total 1200 550 Balance -1200 -550 Output: Urine 1200 550 Uretheral ([place]) 600 200 Other: Voiding Method Indwelling Catheter Indwelling Catheter Indwelling Catheter # Voids 1 - Exam GENERAL DESCRIPTION: Middle-age male up in the room in no distress RESPIRATORY SYSTEM: Unlabored breathing , decreased breath sounds at bases HEART: S1 S2 regular rate and rhythm , ABDOMEN: Soft , mild distention and tenderness EXTREMITIES: No edema feet - Labs CBC & Chem 7: 10/25/23 05:53 10/25/23 05:53 Assessment and Plan (1) Leukocytosis Current Visit: Yes Status: Acute Code(s): D72.829 - ELEVATED WHITE BLOOD CELL COUNT, UNSPECIFIED SNOMED Code(s): 924594248 (2) Peritonitis Current Visit: Yes Status: Acute Code(s): K65.9 - PERITONITIS, UNSPECIFIED SNOMED Code(s): 79216850 Plan: 1patient presented hospital with sepsis in this patient who did have a fever tachycardia elevated white count presented with abdominal pain and concerning for internal herniation and possible small bowel inflammation/ischemia s/p resection with no clear documentation of any perforation, will need to cover for the enteric gram-negative aerobes and anaerobes to the likely pathogen 2-patient currently being treated Zosyn 3.37 g every 8 hours we will repeat a CBC and BMP with a.m. lab Dictation was produced using [employer]! dictation software. please excuse any grammatical, word or spelling errors. Time with Patient: Less than 30
--- NOTE | 2023-10-25 14:36 | P.PN ---
Subjective Progress Note Date: 10/25/23 Principal diagnosis: Reason for follow-up is sepsis abdominal source Patient is a 37-year-old male with a past medical history significant for chronic back pain presenting to the hospital for evaluation of abdominal pain and fever, CT abdominal pelvis suspicious for internal hernia possible obstruction s/p laparotomy small bowel resection. On today's evaluation that is 10/25/2023,the patient remains to be afebrile, patient is on room air not requiring supplemental oxygen and denies any shortness of breath no chest pain he did have occasional cough.Patient denies having any nausea or vomiting, complaining of abdominal pain post coughing episode and having bowel movement. Patient white count is 5.81, creatinine is 0.9 Objective - Vital Signs Vital signs: Vital Signs Temp 97.6 F 10/25/23 06:50 Pulse 73 10/25/23 07:35 Resp 17 10/25/23 07:35 BP 116/67 10/25/23 06:50 Pulse Ox 90 L 10/25/23 06:50 FiO2 Intake & Output 10/24/23 10/25/23 10/25/23 18:59 06:59 18:59 Intake Total 118 Balance 118 Intake: Oral 118 Other: Voiding Method Indwelling Catheter Toilet Toilet # Voids 3 3 - Exam GENERAL DESCRIPTION: Middle-age male up in the room in no distress RESPIRATORY SYSTEM: Unlabored breathing , decreased breath sounds at bases HEART: S1 S2 regular rate and rhythm , ABDOMEN: Soft , mild distention and tenderness EXTREMITIES: No edema feet - Labs CBC & Chem 7: 10/25/23 05:53 10/25/23 05:53 Labs: Abnormal Lab Results - Last 24 Hours (Table) 10/25/23 10/25/23 Range/Units 05:53 05:53 RBC 3.80 L (4.40-5.60) X 10*6/uL Hgb 10.1 L (13.0-17.0) g/dL Hct 32.4 L (39.6-50.0) % MCH 26.6 L (27.0-32.0) pg MCHC 31.2 L (32.0-37.0) g/dL RDW 14.9 H (11.5-14.5) % Lymphocytes # 0.46 L (0.90-5.00) X 10*3/uL Eosinophils # 0 L (0.04-0.35) X 10*3/uL BUN 8.8 L (9.0-27.0) mg/dL BUN/Creatinine Ratio 9.78 L (12.00-20.00) Ratio Glucose 132 H (70-110) mg/dL Calcium 7.8 L (8.7-10.3) mg/dL Assessment and Plan (1) Leukocytosis Current Visit: Yes Status: Acute Code(s): D72.829 - ELEVATED WHITE BLOOD CELL COUNT, UNSPECIFIED SNOMED Code(s): 071204857 (2) Peritonitis Current Visit: Yes Status: Acute Code(s): K65.9 - PERITONITIS, UNSPECIFIED SNOMED Code(s): 91940803 Plan: 1patient presented hospital with sepsis in this patient who did have a fever tachycardia elevated white count presented with abdominal pain and concerning for internal herniation and possible small bowel inflammation/ischemia s/p resection with no clear documentation of any perforation, will need to cover for the enteric gram-negative aerobes and anaerobes to the likely pathogen 2-patient did have resolution of his fever and his white count has normalized no cultures patient currently being treated with Zosyn to continue while inpatient and monitor clinical course closely Dictation was produced using [employer] dictation software. please excuse any grammatical, word or spelling errors. Time with Patient: Less than 30
[2023-10-25] MEDS: allopurinoL 100 MG TAB PO SCH (20:35)
[2023-10-26 12:35] LABS: Basophils % (A) 0 %; Eosinophils % (A) 0 %; HCT 35.3 % (39.0-53.0); HGB 11.1 gm/dL (13.0-17.5); Hypochromasia Slight; Lymphocytes # (A) 0.6 k/uL (1.0-4.8); Lymphocytes % (A) 9 %; MCH 26.7 pg (25.0-35.0); MCHC 31.4 g/dL (31.0-37.0); Mean Platelet Volume 8.2; Monocytes # (A) 0.5 k/uL (0-1.0); Monocytes % (A) 8 %; Neutrophils # (A) 5.2 k/uL (1.3-7.7); Neutrophils % (A) 81 %; Platelet Count 272 k/uL (150-450); RBC 4.15 m/uL (4.30-5.90); RDW 14.5 % (11.5-15.5); WBC 6.4 k/uL (3.8-10.6)
--- NOTE | 2023-10-26 13:44 | P.PN ---
Subjective October 26, 2023: Patient is reevaluated status post exploratory laparotomy and small bowel obstruction, postop day #4. Indicate he is actively walking. He is passing gas. He is tolerating a full liquid diet. Pain is controlled. No chest pain no shortness of breath no nausea or vomiting. Objective - Vital Signs Vital signs: Vital Signs Temp 97.3 F L 10/26/23 07:13 Pulse 73 10/26/23 07:13 Resp 18 10/26/23 07:13 BP 120/82 10/26/23 07:13 Pulse Ox 96 10/26/23 07:13 FiO2 Intake & Output 10/25/23 10/26/23 10/26/23 18:59 06:59 18:59 Intake Total 118 Output Total 5 300 Balance 113 -300 Intake: Oral 118 Output: Urine 4 300 Stool 1 Other: Voiding Method Toilet Toilet - Exam General: The patient is awake and alert, in no distress, is resting comfortably in the chair in his hospital room Neck: The neck is supple, there is no thyromegaly, lymphadenopathy, tenderness or JVD. Cardiovascular: S1S2 is normal, There is a regular rate and rhythm. No murmur, rub or gallop is appreciated. Respiratory: Lungs are clear to auscultation bilaterally, respirations are non-labored, breath sounds are equal. Gastrointestinal: Soft, non-distended, nabdomen no tenderness is palpated at this time, incision sites are clean dry and intact, Musculoskeletal: Normal ROM, no tenderness, There is no pedal edema. There is no calf tenderness or swelling. No cords were appreciated. Neurological: CN II-XII intact, there are no obvious motor or sensory deficits. Coordination appears grossly intact. Speech is normal. Skin: Skin is warm and dry and no rashes or lesions are noted. - Labs CBC & Chem 7: 10/26/23 12:21 10/25/23 05:53 Labs: Abnormal Lab Results - Last 24 Hours (Table) 10/26/23 Range/Units 12:21 RBC 4.15 L (4.30-5.90) m/uL Hgb 11.1 L (13.0-17.5) gm/dL Hct 35.3 L (39.0-53.0) % Lymphocytes # 0.6 L (1.0-4.8) k/uL Assessment and Plan Plan: Sepsis secondary to abdominal pain , CT reported internal hernia, status post exploratory laparotomy with small bowel resection. Pathology reporting small bowel tissue with active enteritis, submucosal edema, serous fibrous adhesions and abundant acute serositis. Margins benign and viable. H/O Guillian Norman syndrome Chronic back pain Osteoarthritis Morbid obesity, BMI 37.3 Alcohol use Nicotine dependence, chews, counseled on cessation Plan: Continue on current medication regimen ,monitoring and symptomatic treatment. Maintain aggressive pulmonary toileting with incentive spirometer reinforced. Increase ambulation as tolerated. Antibiotics as per ID. Pain management PER gENERAL SURGERY. DVT and GI prophylaxis in place with Lovenox and PPI.
--- NOTE | 2023-10-26 15:45 | P.PN ---
Subjective Progress Note Date: 10/26/23 CHIEF COMPLAINT: Abdominal pain HISTORY OF PRESENT ILLNESS: Patient is postop day #4 status post exploratory laparotomy with small bowel resection for small bowel inflammation. Patient continues to report abdominal pain requiring IV pain medication. However, patient is feeling better. Denies any nausea or vomiting. He is having bowel movements. Afebrile. WBC 6.4 PHYSICAL EXAM: VITAL SIGNS: Reviewed. GENERAL: Well-developed in no acute distress. ABDOMEN: Soft. Nondistended. Prevana wound vac intact. Abdominal binder in place NEUROLOGIC: Alert and oriented. Cranial nerves II through XII grossly intact. ASSESSMENT: 1. Small bowel inflammation status post exploratory laparotomy with small bowel resection PLAN: -Continue regular -Continue pain management -Encourage patient to ambulate -Continue incentive spirometer -Anticipate discharge tomorrow -GI prophylaxis Protonix and DVT prophylaxis Lovenox Physician Laser Beam Cutter note has been reviewed by physician. Signing provider agrees with the documented findings, assessment, and plan of care. Objective - Vital Signs Vital signs: Vital Signs Temp 98.8 F 10/26/23 13:32 Pulse 80 10/26/23 13:32 Resp 18 10/26/23 13:32 BP 157/73 10/26/23 13:32 Pulse Ox 98 10/26/23 13:32 FiO2 Intake & Output 10/25/23 10/26/23 10/26/23 18:59 06:59 18:59 Intake Total 118 Output Total 5 300 Balance 113 -300 Intake: Oral 118 Output: Urine 4 300 Stool 1 Other: Voiding Method Toilet Toilet - Labs CBC & Chem 7: 10/26/23 12:21 10/25/23 05:53 Labs: Abnormal Lab Results - Last 24 Hours (Table) 10/26/23 Range/Units 12:21 RBC 4.15 L (4.30-5.90) m/uL Hgb 11.1 L (13.0-17.5) gm/dL Hct 35.3 L (39.0-53.0) % Lymphocytes # 0.6 L (1.0-4.8) k/uL
[2023-10-26] MEDS: ACETAMINOPHEN TAB 325 MG TAB PO PRN (16:07)
[2023-10-26] MEDS: IBUPROFEN 800 MG TAB PO PRN (18:15)
--- NOTE | 2023-10-27 08:17 | P.PN ---
Subjective Progress Note Date: 10/26/23 Principal diagnosis: Reason for follow-up is sepsis abdominal source Patient is a 37-year-old male with a past medical history significant for chronic back pain presenting to the hospital for evaluation of abdominal pain and fever, CT abdominal pelvis suspicious for internal hernia possible obstruction s/p laparotomy small bowel resection. On today's evaluation that is 10/26/2023, the patient continues to be afebrile, the patient is on room air and breathing comfortably, the Pt denies having any chest pain or cough, the patient abdominal pain has slightly decreased in intensity patient denies any nausea vomiting tolerating his diet and did have a small bowel movement. Patient white count is 6.4 Objective - Vital Signs Vital signs: Vital Signs Temp 99.0 F 10/26/23 19:35 Pulse 88 10/26/23 19:35 Resp 20 10/26/23 19:35 BP 137/77 10/26/23 19:35 Pulse Ox 94 L 10/26/23 19:35 FiO2 Intake & Output 10/26/23 10/26/23 10/27/23 06:59 18:59 06:59 Output Total 300 Balance -300 Output: Urine 300 Other: Voiding Method Toilet # Voids 2 # Bowel Movements 0 - Exam GENERAL DESCRIPTION: Middle-age male up in the room in no distress RESPIRATORY SYSTEM: Unlabored breathing , decreased breath sounds at bases HEART: S1 S2 regular rate and rhythm , ABDOMEN: Soft , mild distention and tenderness EXTREMITIES: No edema feet - Labs CBC & Chem 7: 10/26/23 12:21 10/25/23 05:53 Labs: Abnormal Lab Results - Last 24 Hours (Table) 10/26/23 Range/Units 12:21 RBC 4.15 L (4.30-5.90) m/uL Hgb 11.1 L (13.0-17.5) gm/dL Hct 35.3 L (39.0-53.0) % Lymphocytes # 0.6 L (1.0-4.8) k/uL Assessment and Plan (1) Leukocytosis Current Visit: Yes Status: Acute Code(s): D72.829 - ELEVATED WHITE BLOOD C ELL COUNT, UNSPECIFIED SNOMED Code(s): 213517808 (2) Peritonitis Current Visit: Yes Status: Acute Code(s): K65.9 - PERITONITIS, UNSPECIFIED SNOMED Code(s): 53951404 Plan: 1patient presented hospital with sepsis in this patient who did have a fever tachycardia elevated white count presented with abdominal pain and concerning for internal herniation and possible small bowel inflammation/ischemia s/p resection with no clear documentation of any perforation, will need to cover for the enteric gram-negative aerobes and anaerobes to the likely pathogen 2-patient did have resolution of his fever and his white count has normalized 3-patient to continue with Zosyn while inpatient and will transition to oral antibiotics on discharge Dictation was produced using [employer] dictation software. please excuse any grammatical, word or spelling errors. Time with Patient: Less than 30
--- NOTE | 2023-10-27 11:27 | P.PN ---
Subjective October 26, 2023: Patient is reevaluated status post exploratory laparotomy and small bowel obstruction, postop day #4. Indicate he is actively walking. He is passing gas. He is tolerating a full liquid diet. Pain is controlled. No chest pain no shortness of breath no nausea or vomiting. October 27, 2023: Patient is reevaluated for his peritonitis with exploratory laparotomy, he is postop day #5 at this time. He spiked a fever of 102.7 F last night. He remains on Zosyn IV antibiotics. Infectious diseases following as well. Medically denies any other complaints at this time, no chest pain pressure shortness of breath, no significant nausea or vomiting. He has not had a bowel movement since yesterday and feels that he does need 1. While he is having the fever he did have some increased abdominal pain but it was short- lived. Current vitals are now stable. CBC yesterday showed a normal white count. Mild anemia with hemoglobin 9.1. Labs are pending for today. Objective - Vital Signs Vital signs: Vital Signs Temp 98.9 F 10/27/23 07:21 Pulse 75 10/27/23 07:48 Resp 18 10/27/23 07:48 BP 144/80 10/27/23 07:21 Pulse Ox 94 L 10/27/23 07:21 FiO2 Intake & Output 10/26/23 10/27/23 10/27/23 18:59 06:59 18:59 Intake Total 400 Balance 400 Intake: Intake, IV Titration 100 Amount Piperacillin-Tazobactam 3 100 .375 gm In Sodium Chloride 0.9% 100 ml @ 25 mls/hr IVPB Q8HR [facility] Rx# :[id number] Oral 300 Other: Voiding Method Toilet Urinal # Voids 2 # Bowel Movements 0 - Exam General: The patient is awake and alert, in no distress, is resting comfortably in the chair in his hospital room Neck: The neck is supple, there is no thyromegaly, lymphadenopathy, tenderness or JVD. Cardiovascular: S1S2 is normal, There is a regular rate and rhythm. No murmur, rub or gallop is appreciated. Respiratory: Lungs show minimal crackles to the right base. Respirations are non-labored, breath sounds are equal. Gastrointestinal: Soft, non-distended, nabdomen no tenderness is palpated at this time, incision sites are clean dry and intact, Musculoskeletal: Normal ROM, no tenderness, There is no pedal edema. There is no calf tenderness or swelling. No cords were appreciated. Neurological: CN II-XII intact, there are no obvious motor or sensory deficits. Coordination appears grossly intact. Speech is normal. Skin: Skin is warm and dry and no rashes or lesions are noted. - Labs CBC & Chem 7: 10/26/23 12:21 10/25/23 05:53 Labs: Abnormal Lab Results - Last 24 Hours (Table) 10/26/23 Range/Units 12:21 RBC 4.15 L (4.30-5.90) m/uL Hgb 11.1 L (13.0-17.5) gm/dL Hct 35.3 L (39.0-53.0) % Lymphocytes # 0.6 L (1.0-4.8) k/uL Assessment and Plan Plan: Sepsis/peritonitis: status post exploratory laparotomy with small bowel resection. POD #5 pathology report reviewed, he remains on IV Zosyn no more fevers since yesterday x 1. H/O Guillian Norman syndrome Gout: He remains on allopurinol Mood disorder: He remains on Escitalopram Chronic back pain Osteoarthritis Morbid obesity, BMI 37.3 Alcohol use Nicotine dependence, chews, counseled on cessation, has nicotine patch Plan: Will check a chest x-ray and repeat CBC today. Continue on current medication regimen ,monitoring and symptomatic treatment. Maintain aggressive pulmonary toileting with incentive spirometer reinforced. Increase ambulation as tolerated. Antibiotics as per ID. Pain management PER gENERAL SURGERY. DVT and GI prophylaxis in place with Lovenox and PPI.
[2023-10-27] MEDS: IOPAMIDOL CONTRAST (ORAL USE) VIAL PO PRN (11:46)
[2023-10-27 12:57] LABS: Basophils % (A) 0 %; Eosinophils % (A) 0 %; HCT 34.5 % (39.0-53.0); HGB 11.2 gm/dL (13.0-17.5); Hypochromasia Slight; Lymphocytes # (A) 0.7 k/uL (1.0-4.8); Lymphocytes % (A) 9 %; MCH 27.3 pg (25.0-35.0); MCHC 32.4 g/dL (31.0-37.0); MCV 84.2 fL (80.0-100.0); Mean Platelet Volume 8.2; Monocytes # (A) 0.5 k/uL (0-1.0); Monocytes % (A) 7 %; Neutrophils % (A) 82 %; Platelet Count 290 k/uL (150-450); RDW 14.5 % (11.5-15.5); WBC 7.3 k/uL (3.8-10.6)
[2023-10-27 13:10] LABS: ALT 25 U/L (4-49); AST 25 U/L (17-59); African American GFR (CKD) >90 (>60 ml/min/1.73 sqM); Albumin/Globulin Ratio 1.3; Alkaline Phosphatase 139 U/L (38-126); Anion Gap 4 mmol/L; Blood Urea Nitrogen 7 mg/dL (9-20); Calcium 8.5 mg/dL (8.4-10.2); Carbon Dioxide 31 mmol/L (22-30); Chloride 103 mmol/L (98-107); Globulin 2.4 g/dL; Glucose 126 mg/dL (74-99); Non-African American GFR(CKD) >90 (>60 ml/min/1.73 sqM); Potassium 3.4 mmol/L (3.5-5.1); Sodium 138 mmol/L (137-145); Total Bilirubin 0.6 mg/dL (0.2-1.3); Total Protein 5.4 g/dL (6.3-8.2)
[2023-10-27 13:24] LABS: C Reactive Protein 20.9 mg/dL (<1.0)
--- NOTE | 2023-10-27 14:05 | XR ---
EXAMINATION TYPE: XR chest 2V DATE OF EXAM: 10/27/2023 COMPARISON: CT same day HISTORY: 37-year-old male with fever TECHNIQUE: PA and lateral views FINDINGS: Low lung volumes and crowded vascular markings. This accentuates heart size, upper limits of normal. Patchy left lower lung opacity, probably atelectasis. Trace pleural effusions on the lateral view. Th ere is mild to moderate free air seen below both hemidiaphragms. IMPRESSION: 1. Mild to moderate free air below both hemidiaphragms. See CT performed on the same day. 2. Limited by hypoventilatory changes. Patchy left basilar opacity probably reflects atelectasis rath er than infiltrate. Clinically correlate. 3. Trace pleural effusions on the lateral view.
--- NOTE | 2023-10-27 14:41 | CT ---
EXAMINATION TYPE: CT abdomen pelvis w con DATE OF EXAM: 10/27/2023 COMPARISON: 10/22/2023 HISTORY: 37-year-old male fever and abdominal pain TECHNIQUE: Contiguous axial scanning of the abdomen and pelvis following administration of 100 ml Iso bridgette 300 IV contrast. Delayed images through the kidneys and coronal/sagittal reconstructions perform ed. CT DLP: 2207.8 mGycm Automated exposure control for dose reduction was used. FINDINGS: The heart is normal size without pericardial effusion. Trace effusions with dependent atelectasis. Mo re focal opacity posterior right base. Correlate to exclude pneumonia. Mild to moderate free air below the hemidiaphragms. No focal liver lesion or biliary ductal dilatation. Some sludge noted in the nondistended gallbladder . Adrenal glands, right kidney, spleen, pancreas within normal limits. Asymmetric fullness left renal collecting system. There may be a mild relative obstruction due to res idual inflammation in the left side of the abdomen/pelvis. Dilated small bowel loops up to 5.0 cm. Transition point possible left paramedian mid to lower abdome n adjacent to the site of small bowel surgery. Interval midline abdominal laparotomy. There appears t o be a 9.7 x 7.1 x 4.2 cm collection of air and fluid mid lower abdomen, possibly extending from the mid sigmoid colon, coronal image 51. Distal small bowel and colon is relatively collapsed. Since the sigmoid colonic diverticulosis. The m ild wall thickening along the proximal to mid sigmoid colon. Bladder urine distended. Tiny focus of intraluminal bladder air, etiology clear, possibly relating to recent instrumentation. Mild free fluid in the anterior pelvis. No pelvic lymphadenopathy seen. Mild generalized anasarca changes. Bones: No osseous destructive process. IMPRESSION: 1. INTERVAL MIDLINE ABDOMINAL LAPAROTOMY WITH SMALL BOWEL SURGERY IN THE LEFT SIDE OF THE ABDOMEN. [place] OXIMAL TO MID SMALL BOWEL LOOPS ARE DILATED UP TO 5.0 CM. DISTAL SMALL BOWEL AND COLON ARE RELATIVELY COLLAPSED. THERE IS ONGOING MESENTERIC INFLAMMATION. SUSPECT A SECONDARY SMALL BOWEL OBSTRUCTION. 2. A CONTAINED LEAK MEASURING 9.7 X 7.1 X 4.2 CM HAS DEVELOPED IN THE MID LOWER ABDOMEN. THERE IS FLU ID AND AIR WITHIN THE LEAK AND IT MAY ARISE FROM THE MID SIGMOID COLON, SUSPICIOUS FOR COMPLICATION O F ACUTE DIVERTICULITIS. 3. MILD TO MODERATE FREE AIR. 4. THIRD SPACING WITH ANASARCA AND TRACE EFFUSIONS. MORE FOCAL POSTERIOR BASILAR OPACITY COULD REPRES ENT ATELECTASIS VERSUS PNEUMONIA. CLINICALLY CORRELATE.
--- NOTE | 2023-10-27 16:25 | P.PN ---
Subjective Progress Note Date: 10/27/23 Patient is status post small bowel resection for small bowel inflammation. Patient was about to get discharged yesterday but was observed. He reports today that he is not passing as much flatus. Patient is on CIWA protocol and receiving Ativan. Patient also reports having problems with bowel habits for least 1 week overlapping with his current admission. General: Patient is nontoxic in appearance. Abdomen: Incision clean dry and intact. Incisional wound VAC intact. Obese. No diffuse peritonitis. Mild abdominal distention. Studies: CT of the abdomen pelvis independently reviewed demonstrates free air. Additionally, internal hernia identified. Inflammation of the sigmoid colon with features of diverticulitis evident, possible perforated diverticulitis. Questionable area of small bowel versus contained fluid collection. Labs: WBC normal. Plan: 1. Patient made immediately NPO. Index surgeon notified about CT for scan findings. Possible return to the operating room also discussed with patient as well. 2. Hold discharge. Additional surgical intervention forthcoming. 3. Discussion with infectious disease specialist regarding CT scan findings also reviewed 4. Possible colectomy and colostomy described for which patient opted for observation pending additional assessment with index surgeon. Objective - Vital Signs Vital signs: Vital Signs Temp 99.1 F 10/27/23 13:49 Pulse 83 10/27/23 13:49 Resp 18 10/27/23 13:49 BP 159/89 10/27/23 13:49 Pulse Ox 95 10/27/23 13:49 FiO2 Intake & Output 10/26/23 10/27/23 10/27/23 18:59 06:59 18:59 Intake Total 400 Balance 400 Intake: Intake, IV Titration 100 Amount Piperacillin-Tazobactam 3 100 .375 gm In Sodium Chloride 0.9% 100 ml @ 25 mls/hr IVPB Q8HR [facility] Rx# :[id number] Oral 300 Other: Voiding Method Toilet Urinal # Voids 2 # Bowel Movements 0 - Labs CBC & Chem 7: 10/27/23 12:06 10/27/23 12:06 Labs: Abnormal Lab Results - Last 24 Hours (Table) 10/27/23 10/27/23 Range/Units 12:06 12:06 RBC 4.10 L (4.30-5.90) m/uL Hgb 11.2 L (13.0-17.5) gm/dL Hct 34.5 L (39.0-53.0) % Lymphocytes # 0.7 L (1.0-4.8) k/uL Potassium 3.4 L (3.5-5.1) mmol/L Carbon Dioxide 31 H (22-30) mmol/L BUN 7 L (9-20) mg/dL Creatinine 0.65 L (0.66-1.25) mg/dL Glucose 126 H (74-99) mg/dL Alkaline Phosphatase 139 H (38-126) U/L C-Reactive Protein 20.9 H (<1.0) mg/dL Total Protein 5.4 L (6.3-8.2) g/dL Albumin 3.0 L (3.5-5.0) g/dL
[2023-10-27] MEDS: KETOROLAC 15 MG/ML 1 ML VIAL IVP SCH (16:50)
--- NOTE | 2023-10-27 17:39 | P.PN ---
Progress Note - Text Progress Note Date: 10/27/23 Patient reassessed. Patient reports feeling more comfortable as he is laying in bed. He denies diffuse abdominal pain. He has mild tenderness. Abdomen: Abdominal exam performed without peritonitis palpated on exam. Dressing intact. Patient opted for observation today with assessment with index surgeon tomorrow.
[2023-10-28 10:00] LABS: Basophils # (A) 0.01 X 10*3/uL (0.00-0.10); Basophils % (A) 0.1 %; Eosinophils # (A) 0 X 10*3/uL (0.04-0.35); Eosinophils % (A) 0 %; HCT 29.7 % (39.6-50.0); HGB 9.5 g/dL (13.0-17.0); Lymphocytes # (A) 0.89 X 10*3/uL (0.90-5.00); Lymphocytes % (A) 11.9 %; MCH 25.9 pg (27.0-32.0); MCV 80.9 FL (80.0-97.0); Mean Platelet Volume 9.6 FL (9.5-12.2); Monocytes % (A) 10.7 %; NRBC Per 100 WBC 0.02 X 10*3/uL (0.00-0.01); Platelet Count 291 X 10*3/uL (140-440); RBC 3.67 X 10*6/uL (4.40-5.60); RDW 15.1 % (11.5-14.5)
--- NOTE | 2023-10-28 10:13 | P.PN ---
Subjective Progress Note Date: 10/27/23 Principal diagnosis: Reason for follow-up is sepsis abdominal source Patient is a 37-year-old male with a past medical history significant for chronic back pain presenting to the hospital for evaluation of abdominal pain and fever, CT abdominal pelvis suspicious for internal hernia possible obstruction s/p laparotomy small bowel resection. On today's evaluation that is 10/27/2023, Patient did spike a fever last evening of 102.1 F, I was not notified, patient has been afebrile since then, patient denies having any chest pain shortness of breath or cough patient complaining of more abdominal pain since last evening patient did have nausea but no vomiting no bowel movement. Patient white count is 7.3 creatinine 0.65 Objective - Vital Signs Vital signs: Vital Signs Temp 98.9 F 10/27/23 07:21 Pulse 75 10/27/23 07:48 Resp 18 10/27/23 07:48 BP 144/80 10/27/23 07:21 Pulse Ox 94 L 10/27/23 07:21 FiO2 Intake & Output 10/26/23 10/27/23 10/27/23 18:59 06:59 18:59 Intake Total 400 Balance 400 Intake: Intake, IV Titration 100 Amount Piperacillin-Tazobactam 3 100 .375 gm In Sodium Chloride 0.9% 100 ml @ 25 mls/hr IVPB Q8HR [facility] Rx# :[id number] Oral 300 Other: Voiding Method Toilet Urinal # Voids 2 # Bowel Movements 0 - Exam GENERAL DESCRIPTION: Middle-age male up in the room in no distress RESPIRATORY SYSTEM: Unlabored breathing , decreased breath sounds at bases HEART: S1 S2 regular rate and rhythm , ABDOMEN: Soft , mild distention and tenderness EXTREMITIES: No edema feet - Labs CBC & Chem 7: 10/28/23 04:04 10/27/23 12:06 Labs: Abnormal Lab Results - Last 24 Hours (Table) 10/26/23 Range/Units 12:21 RBC 4.15 L (4.30-5.90) m/uL Hgb 11.1 L (13.0-17.5) gm/dL Hct 35.3 L (39.0-53.0) % Lymphocytes # 0.6 L (1.0-4.8) k/uL Assessment and Plan (1) Leukocytosis Current Visit: Yes Status: Acute Code(s): D72.829 - ELEVATED WHITE BLOOD CELL COUNT, UNSPECIFIED SNOMED Code(s): 741784550 (2) Peritonitis Current Visit: Yes Status: Acute Code(s): K65.9 - PERITONITIS, UNSPECIFIED SNOMED Code(s): 45695771 Plan: 1patient presented hospital with sepsis in this patient who did have a fever tachycardia elevated white count presented with abdominal pain and concerning for internal herniation and possible small bowel inflammation/ischemia s/p resection with no clear documentation of any perforation, will need to cover for the enteric gram-negative aerobes and anaerobes to the likely pathogen 2-patient did have new fever and also complaining of more abdominal pain patient did have tenderness concerning for intra-abdominal source we will obtain a CT of abdominal pelvis, will check blood cultures check a CRP and [facility] question concern answered Dictation was produced using Tufin dictation software. please excuse any grammatical, word or spelling errors. Time with Patient: Greater than 30
--- NOTE | 2023-10-28 12:16 | P.PN ---
Subjective October 26, 2023: Patient is reevaluated status post exploratory laparotomy and small bowel obstruction, postop day #4. Indicate he is actively walking. He is passing gas. He is tolerating a full liquid diet. Pain is controlled. No chest pain no shortness of breath no nausea or vomiting. October 27, 2023: Patient is reevaluated for his peritonitis with exploratory laparotomy, he is postop day #5 at this time. He spiked a fever of 102.7 F last night. He remains on Zosyn IV antibiotics. Infectious diseases following as well. Medically denies any other complaints at this time, no chest pain pressure shortness of breath, no significant nausea or vomiting. He has not had a bowel movement since yesterday and feels that he does need 1. While he is having the fever he did have some increased abdominal pain but it was short- lived. Current vitals are now stable. CBC yesterday showed a normal white count. Mild anemia with hemoglobin 9.1. Labs are pending for today. October 28, 2023: Patient is resting comfortably at home. He remains afebrile. He had increasing pain yesterday. Vital signs are otherwise stable. Labs show normal white count hemoglobin is 9.5 at this time. Electrolytes are pending for this morning. CT abdomen pelvis from 1 day ago and it showed interval midline abdominal laparotomy small bowel loops are dilated and other small bowel loops in colon that are relatively collapsed possibly a secondary small bowel obstruction. A contained leak in the mid lower abdomen. Chest x-ray from yesterday showed mild to moderate free air below both diaphragms patchy left basilar opacity probably atelectasis trace pleural effusions. Patient does feel improved though. He had had a bowel movement again yesterday and again today. Pain is less Objective - Vital Signs Vital signs: Vital Signs Temp 98.0 F 10/28/23 07:03 Pulse 73 10/28/23 08:00 Resp 19 10/28/23 08:00 BP 129/79 10/28/23 07:03 Pulse Ox 97 10/28/23 07:03 FiO2 Intake & Output 10/27/23 10/28/23 10/28/23 18:59 06:59 18:59 Output Total 1 Balance -1 Output: Stool 1 Other: Voiding Method Toilet Toilet Toilet Urinal Urinal Urinal # Voids 2 # Bowel Movements 1 1 - Exam General: The patient is awake and alert, in no distress, is resting comfortably in the chair in his hospital room Neck: The neck is supple, there is no thyromegaly, lymphadenopathy, tenderness or JVD. Cardiovascular: S1S2 is normal, There is a regular rate and rhythm. No murmur, rub or gallop is appreciated. Respiratory: Lungs show minimal crackles to the right base. Respirations are non-labored, breath sounds are equal. Gastrointestinal: Soft, non-distended, nabdomen no tenderness is palpated at this time, incision sites are clean dry and intact, Musculoskeletal: Normal ROM, no tenderness, There is no pedal edema. There is no calf tenderness or swelling. No cords were appreciated. Neurological: CN II-XII intact, there are no obvious motor or sensory deficits. Coordination appears grossly intact. Speech is normal. Skin: Skin is warm and dry and no rashes or lesions are noted. - Labs CBC & Chem 7: 10/28/23 04:04 10/27/23 12:06 Labs: Abnormal Lab Results - Last 24 Hours (Table) 10/27/23 10/27/23 10/28/23 Range/Units 12:06 12:06 04:04 RBC 4.10 L 3.67 L (4.30-5.90) m/uL Hgb 11.2 L 9.5 L (13.0-17.5) gm/dL Hct 34.5 L 29.7 L (39.0-53.0) % MCH 25.9 L (27.0-32.0) pg RDW 15.1 H (11.5-14.5) % Immature Gran # 0.10 H (0.00-0.04) X 10*3/uL Lymphocytes # 0.7 L 0.89 L (1.0-4.8) k/uL Eosinophils # 0 L (0.04-0.35) X 10*3/uL NRBC/100 WBC Diff 0.02 H (0.00-0.01) X 10*3/uL Potassium 3.4 L (3.5-5.1) mmol/L Carbon Dioxide 31 H (22-30) mmol/L BUN 7 L (9-20) mg/dL Creatinine 0.65 L (0.66-1.25) mg/dL Glucose 126 H (74-99) mg/dL Alkaline Phosphatase 139 H (38-126) U/L C-Reactive Protein 20.9 H (<1.0) mg/dL Total Protein 5.4 L (6.3-8.2) g/dL Albumin 3.0 L (3.5-5.0) g/dL Assessment and Plan Plan: Sepsis/peritonitis: status post exploratory laparotomy with small bowel resection. POD #6 pathology report reviewed, he remains on IV Zosyn Secondary small bowel obstruction and contained leak and being managed by surgery H/O Guillian Norman syndrome Atelectasis: Incentive spirometer was encouraged. Gout: He remains on allopurinol Mood disorder: He remains on Escitalopram Chronic back pain Osteoarthritis Morbid obesity, BMI 37.3 Alcohol use Nicotine dependence, chews, counseled on cessation, has nicotine patch Plan: Continue on current medication regimen ,monitoring and symptomatic treatment. Maintain aggressive pulmonary toileting with incentive spirometer reinforced. Increase ambulation as tolerated. Antibiotics as per ID. Pain maeds per surgery DVT and GI prophylaxis in place with Lovenox and PPI.
--- NOTE | 2023-10-28 13:10 | P.PN ---
Subjective Progress Note Date: 10/28/23 the patient states he feels better today. Patient had some complaints of abdominal distention and bloating yesterday. His computed tomography scan was repeated. Patient appears have evidence of possible diverticulitis with some free air and fluid collection the pelvis. It is unclear if this is related to his exploratory laparotomy with small bowel resection. Patient states he has had multiple bowel movements this morning. He states his pain is improved. He feels less bloated. On exam his vital signs remain stable. His abdomen is soft. There is some mild tenderness throughoutwhich may be related to incisional tenderness.. There is no evidence of any peritoneal signs.there is no rebound or guarding. Status post small bowel resection for enteritis. Patient may have developed diverticulitis. Patient will be observed. He shows no signs of any peritoneal inflammation. His white count is normal. The patient will be closely observed. Patient states that he may require reexploration if his clinical condition changes. Objective - Vital Signs Vital signs: Vital Signs Temp 98.0 F 10/28/23 07:03 Pulse 73 10/28/23 08:00 Resp 19 10/28/23 08:00 BP 129/79 10/28/23 07:03 Pulse Ox 97 10/28/23 07:03 FiO2 Intake & Output 10/27/23 10/28/23 10/28/23 18:59 06:59 18:59 Output Total 1 Balance -1 Output: Stool 1 Other: Voiding Method Toilet Toilet Toilet Urinal Urinal Urinal # Voids 2 # Bowel Movements 1 1 - Labs CBC & Chem 7: 10/28/23 04:04 10/27/23 12:06 Labs: Abnormal Lab Results - Last 24 Hours (Table) 10/27/23 10/28/23 Range/Units 12:06 04:04 RBC 3.67 L (4.40-5.60) X 10*6/uL Hgb 9.5 L (13.0-17.0) g/dL Hct 29.7 L (39.6-50.0) % MCH 25.9 L (27.0-32.0) pg RDW 15.1 H (11.5-14.5) % Immature Gran # 0.10 H (0.00-0.04) X 10*3/uL Lymphocytes # 0.89 L (0.90-5.00) X 10*3/uL Eosinophils # 0 L (0.04-0.35) X 10*3/uL NRBC/100 WBC Diff 0.02 H (0.00-0.01) X 10*3/uL Potassium 3.4 L (3.5-5.1) mmol/L Carbon Dioxide 31 H (22-30) mmol/L BUN 7 L (9-20) mg/dL Creatinine 0.65 L (0.66-1.25) mg/dL Glucose 126 H (74-99) mg/dL Alkaline Phosphatase 139 H (38-126) U/L C-Reactive Protein 20.9 H (<1.0) mg/dL Total Protein 5.4 L (6.3-8.2) g/dL Albumin 3.0 L (3.5-5.0) g/dL
--- NOTE | 2023-10-28 16:19 | P.PN ---
Subjective Progress Note Date: 10/28/23 Principal diagnosis: Reason for follow-up is sepsis abdominal source Patient is a 37-year-old male with a past medical history significant for chronic back pain presenting to the hospital for evaluation of abdominal pain and fever, CT abdominal pelvis suspicious for internal hernia possible obstruction s/p laparotomy small bowel resection. On today's evaluation that is 10/28/2023, patient has been afebrile today, patient is breathing comfortably and is currently on room air, patient denies having any significant cough no chest pain shortness of breath, patient denies nausea vomiting abdominal pain has slightly decreased in intensity no bowel movement. Patient white count is 7.504 Objective - Vital Signs Vital signs: Vital Signs Temp 98.0 F 10/28/23 07:03 Pulse 73 10/28/23 08:00 Resp 19 10/28/23 08:00 BP 129/79 10/28/23 07:03 Pulse Ox 97 10/28/23 07:03 FiO2 Intake & Output 10/27/23 10/28/23 10/28/23 18:59 06:59 18:59 Output Total 1 Balance -1 Output: Stool 1 Other: Voiding Method Toilet Toilet Toilet Urinal Urinal Urinal # Voids 2 # Bowel Movements 1 1 - Exam GENERAL DESCRIPTION: Middle-age male up in the room in no distress RESPIRATORY SYSTEM: Unlabored breathing , decreased breath sounds at bases HEART: S1 S2 regular rate and rhythm , ABDOMEN: Soft , mild distention and tenderness EXTREMITIES: No edema feet - Labs CBC & Chem 7: 10/28/23 04:04 10/27/23 12:06 Labs: Abnormal Lab Results - Last 24 Hours (Table) 10/27/23 10/27/23 10/28/23 Range/Units 12:06 12:06 04:04 RBC 4.10 L 3.67 L (4.30-5.90) m/uL Hgb 11.2 L 9.5 L (13.0-17.5) gm/dL Hct 34.5 L 29.7 L (39.0-53.0) % MCH 25.9 L (27.0-32.0) pg RDW 15.1 H (11.5-14.5) % Immature Gran # 0.10 H (0.00-0.04) X 10*3/uL Lymphocytes # 0.7 L 0.89 L (1.0-4.8) k/uL Eosinophils # 0 L (0.04-0.35) X 10*3/uL NRBC/100 WBC Diff 0.02 H (0.00-0.01) X 10*3/uL Potassium 3.4 L (3.5-5.1) mmol/L Carbon Dioxide 31 H (22-30) mmol/L BUN 7 L (9-20) mg/dL Creatinine 0.65 L (0.66-1.25) mg/dL Glucose 126 H (74-99) mg/dL Alkaline Phosphatase 139 H (38-126) U/L C-Reactive Protein 20.9 H (<1.0) mg/dL Total Protein 5.4 L (6.3-8.2) g/dL Albumin 3.0 L (3.5-5.0) g/dL Assessment and Plan (1) Leukocytosis Current Visit: Yes Status: Acute Code(s): D72.829 - ELEVATED WHITE BLOOD CELL COUNT, UNSPECIFIED SNOMED Code(s): 256260422 (2) Peritonitis Current Visit: Yes Status: Acute Code(s): K65.9 - PERITONITIS, UNSPECIFIED SNOMED Code(s): 50129443 Plan: 1patient presented hospital with sepsis in this patient who did have a fever tachycardia elevated white count presented with abdominal pain and concerning for internal herniation and possible small bowel inflammation/ischemia s/p resection with no clear documentation of any perforation, will need to cover for the enteric gram-negative aerobes and anaerobes to the likely pathogen 2-patient did have new fever and also complaining of more abdominal pain for the patient did have repeat CT abdomen pelvis concerning for diverticulitis and possible abscess and is being monitored closely by surgery patient is covered with Zosyn question concern answered Dictation was produced using Mar[employer]ar dictation software. please excuse any grammatical, word or spelling errors. Time with Patient: Less than 30
--- NOTE | 2023-10-29 12:26 | P.PN ---
Subjective Progress Note Date: 10/29/23 Principal diagnosis: Reason for follow-up is sepsis abdominal source Patient is a 37-year-old male with a past medical history significant for chronic back pain presenting to the hospital for evaluation of abdominal pain and fever, CT abdominal pelvis suspicious for internal hernia possible obstruction s/p laparotomy small bowel resection. On today's evaluation that is 10/29/2023,the patient denies any fever or any chills, patient is breathing comfortably on room air, the patient denies chest pain shortness of breath and no significant cough, patient abdominal pain has slightly decreased in intensity denies nausea vomiting did have some diarrhea. No new labs has been obtained today blood culture currently pending Objective - Vital Signs Vital signs: Vital Signs Temp 98.1 F 10/29/23 06:53 Pulse 63 10/29/23 06:53 Resp 18 10/29/23 06:53 BP 120/78 10/29/23 06:53 Pulse Ox 95 10/29/23 06:53 FiO2 Intake & Output 10/28/23 10/29/23 10/29/23 18:59 06:59 18:59 Other: Voiding Method Toilet Toilet Urinal Urinal # Voids 3 1 # Bowel Movements 1 1 - Exam GENERAL DESCRIPTION: Middle-age male up in the room in no distress RESPIRATORY SYSTEM: Unlabored breathing , decreased breath sounds at bases HEART: S1 S2 regular rate and rhythm , ABDOMEN: Soft , mild distention and tenderness EXTREMITIES: No edema feet - Labs CBC & Chem 7: 10/28/23 04:04 10/27/23 12:06 Labs: Microbiology - Last 24 Hours (Table) 10/27/23 12:06 Blood Culture - Preliminary Blood Assessment and Plan (1) Leukocytosis Current Visit: Yes Status: Acute Code(s): D72.829 - ELEVATED WHITE BLOOD CELL COUNT, UNSPECIFIED SNOMED Code(s): 046281444 (2) Peritonitis Current Visit: Yes Status: Acute Code(s): K65.9 - PERITONITIS, UNSPECIFIED SNOMED Code(s): 49588261 Plan: 1patient presented hospital with sepsis in this patient who did have a fever tachycardia elevated white count presented with abdominal pain and concerning for internal herniation and possible small bowel inflammation/ischemia s/p resection with no clear documentation of any perforation, will need to cover for the enteric gram-negative aerobes and anaerobes to the likely pathogen 2-patient did have new fever and also complaining of more abdominal pain for the patient did have repeat CT abdomen pelvis concerning for diverticulitis and possible abscess 3-patient is currently being monitored closely by surgery covered with Zowanda and will monitor clinical course closely question concern answered Dictation was produced using Ardian dictation software. please excuse any grammatical, word or spelling errors. Time with Patient: Less than 30
--- NOTE | 2023-10-29 14:09 | P.PN ---
Subjective Progress Note Date: 10/29/23 CHIEF COMPLAINT: Abdominal pain HISTORY OF PRESENT ILLNESS: Patient is postop day #7 status post exploratory laparotomy with small bowel resection for small bowel inflammation. Patient reports that he is finally starting to feel better. The abdominal pressure and pain that he was having is improving. He is having flatus and loose stools. Denies any nausea or vomiting. Patient reported small amount of drainage in the Prevana tubing. Afebrile. WBC 7.5 Hgb 9.5 PHYSICAL EXAM: VITAL SIGNS: Reviewed. GENERAL: Well-developed in no acute distress. ABDOMEN: Soft. Nondistended. Prevana dressing pulled down. Incision site is clean and dry. There is a small area of dehiscence. No drainage noted. NEUROLOGIC: Alert and oriented. Cranial nerves II through XII grossly intact. ASSESSMENT: 1. Small bowel enteritis status post exploratory laparotomy with small bowel resection 2. Now with acute diverticulitis PLAN: -Keep patient n.p.o. except for ice chips -Continue pain management -Continue abdominal binder -Continue wet gauze and ABD pads to incision. Surgeon is aware of small area of dehiscence -Continue antibiotics -GI prophylaxis Protonix and DVT prophylaxis Lovenox Physician Landing Scaler note has been reviewed by physician. Signing provider agrees with the documented findings, assessment, and plan of care. Objective - Vital Signs Vital signs: Vital Signs Temp 98.1 F 10/29/23 06:53 Pulse 63 10/29/23 06:53 Resp 18 10/29/23 06:53 BP 120/78 10/29/23 06:53 Pulse Ox 95 10/29/23 06:53 FiO2 Intake & Output 10/28/23 10/29/23 10/29/23 18:59 06:59 18:59 Other: Voiding Method Toilet Toilet Urinal Urinal # Voids 3 1 # Bowel Movements 1 1 - Labs CBC & Chem 7: 10/28/23 04:04 10/27/23 12:06 Labs: Microbiology - Last 24 Hours (Table) 10/27/23 12:06 Blood Culture - Preliminary Blood
[2023-10-29 16:00] VITALS: BMI 37.3
--- NOTE | 2023-10-29 19:20 | P.PN ---
Subjective Progress Note Date: 10/29/23 Principal diagnosis: patient presented with abdominal pain,postop day 7 status post exploratory laparotomy with small bowel resection for small bowel inflammation Patient states she's feeling better abdominal pain improving currently moving bowels and passing flatulence. Denies nausea and vomiting small amount of drainage in the drain tubing Objective - Vital Signs Vital signs: Vital Signs Temp 98.4 F 10/29/23 13:18 Pulse 55 L 10/29/23 13:18 Resp 18 10/29/23 13:18 BP 110/62 10/29/23 13:18 Pulse Ox 95 10/29/23 13:18 FiO2 Intake & Output 10/29/23 10/29/23 10/30/23 06:59 18:59 06:59 Weight 117.934 kg Other: Voiding Method Toilet Urinal # Voids 1 3 # Bowel Movements 1 - Exam General: [Patient awake, alert and oriented times 3. Patient in no acute distress.] HEENT: [PERRL. EOMI. No pharyngeal erythema or exudate.] Neck: [No adenopathy.] Cardiac: [Heart regular in rate and rhythm. No S3. No S4. No clicks, rubs. No murmur.] Lungs: [Clear to auscultation bilaterally.] Abdomen: [No mass. No organomegaly. Bowel sounds presnt and normoactive in all 4 quadrants. some loose stool, incision clean and dry, small area of dehiscence no drainage Extremes: [No edema no cyanosis no claudication normal pulses] : normal male genitalia Musculoskeletal: [No joint erythema, edema or tenderness.] Skin: [No rash.] Neurologic: [No lateralizing deficits. CN II - XII grossly intact.] Lymphatic: [No adenopathy.] - Labs CBC & Chem 7: 10/28/23 04:04 10/27/23 12:06 Labs: Microbiology - Last 24 Hours (Table) 10/27/23 12:06 Blood Culture - Preliminary Blood Assessment and Plan (1) Abdominal pain Current Visit: Yes Status: Acute Code(s): R10.9 - UNSPECIFIED ABDOMINAL PAIN SNOMED Code(s): 67275749 (2) Internal hernia Current Visit: Yes Status: Acute Code(s): K45.8 - OTH ABDOMINAL HERNIA WITHOUT OBSTRUCTION OR GANGRENE SNOMED Code(s): 87014441 (3) Leukocytosis Current Visit: Yes Status: Acute Code(s): D72.829 - ELEVATED WHITE BLOOD CELL COUNT, UNSPECIFIED SNOMED Code(s): 926270438 (4) Peritonitis Current Visit: Yes Status: Acute Code(s): K65.9 - PERITONITIS, UNSPECIFIED SNOMED Code(s): 22272491 (5) Sepsis Current Visit: Yes Status: Acute Code(s): A41.9 - SEPSIS, UNSPECIFIED ORGANISM SNOMED Code(s): 59430244 Plan: small bowel enteritis post-exploratory lap Diverticulosis diverticulitis Continuous pain management IV antibiotic therapy IV fluids Patient nothing by mouth
[2023-10-30 09:24] LABS: Basophils % (A) 0 %; Eosinophils % (A) 0 %; HCT 30.1 % (39.0-53.0); Lymphocytes # (A) 0.6 k/uL (1.0-4.8); Lymphocytes % (A) 8 %; MCH 26.4 pg (25.0-35.0); MCHC 31.7 g/dL (31.0-37.0); MCV 83.2 fL (80.0-100.0); Mean Platelet Volume 8.3; Monocytes # (A) 0.4 k/uL (0-1.0); Monocytes % (A) 5 %; Neutrophils # (A) 6.3 k/uL (1.3-7.7); Neutrophils % (A) 85 %; Platelet Count 316 k/uL (150-450); RBC 3.61 m/uL (4.30-5.90); RDW 14.9 % (11.5-15.5); WBC 7.5 k/uL (3.8-10.6)
[2023-10-30 09:26] LABS: HGB 9.5 gm/dL (13.0-17.5)
[2023-10-30 09:44] LABS: African American GFR (CKD) >90 (>60 ml/min/1.73 sqM); Anion Gap 5 mmol/L; Blood Urea Nitrogen 14 mg/dL (9-20); Carbon Dioxide 26 mmol/L (22-30); Chloride 107 mmol/L (98-107); Glucose 106 mg/dL (74-99); Non-African American GFR(CKD) >90 (>60 ml/min/1.73 sqM); Potassium 3.6 mmol/L (3.5-5.1); Sodium 138 mmol/L (137-145)
--- NOTE | 2023-10-30 11:03 | P.PN ---
Subjective Progress Note Date: 10/30/23 CHIEF COMPLAINT: Abdominal pain HISTORY OF PRESENT ILLNESS: Patient is postop day #8 status post exploratory laparotomy with small bowel resection for small bowel inflammation. Patient reports having bowel movements. Denies any nausea or vomiting. He does have pain at the incision site. Tolerated clear liquids. Afebrile. WBC 7.5 Hgb 9.5 platelets 316 sodium 138 creatinine 0.71 PHYSICAL EXAM: VITAL SIGNS: Reviewed. GENERAL: Well-developed in no acute distress. ABDOMEN: Soft. Nondistended. Incision site clean and dry. Small area of dehiscence is smaller in size. No drainage noted. NEUROLOGIC: Alert and oriented. Cranial nerves II through XII grossly intact. ASSESSMENT: 1. Small bowel enteritis status post exploratory laparotomy with small bowel resection 2. Ileus PLAN: -Advance diet to full liquids for lunch and regular for dinner -Continue pain management -Continue abdominal binder -Continue antibiotics -Anticipate possible discharge tomorrow -GI prophylaxis Protonix and DVT prophylaxis Lovenox Physician Adhesion Tester note has been reviewed by physician. Signing provider agrees with the documented findings, assessment, and plan of care. Objective - Vital Signs Vital signs: Vital Signs Temp 98.3 F 10/30/23 07:24 Pulse 69 10/30/23 07:24 Resp 17 10/30/23 07:24 BP 108/66 10/30/23 07:24 Pulse Ox 94 L 10/30/23 07:24 FiO2 Intake & Output 10/29/23 10/30/23 10/30/23 18:59 06:59 18:59 Weight 117.934 kg Other: # Voids 3 2 1 # Bowel Movements 1 - Labs CBC & Chem 7: 10/30/23 08:43 10/30/23 08:43 Labs: Abnormal Lab Results - Last 24 Hours (Table) 10/30/23 10/30/23 Range/Units 08:43 08:43 RBC 3.61 L (4.30-5.90) m/uL Hgb 9.5 L D (13.0-17.5) gm/dL Hct 30.1 L (39.0-53.0) % Lymphocytes # 0.6 L (1.0-4.8) k/uL Glucose 106 H (74-99) mg/dL Calcium 8.0 L (8.4-10.2) mg/dL Microbiology - Last 24 Hours (Table) 10/27/23 12:06 Blood Culture - Preliminary Blood
[2023-10-31] MEDS: IOPAMIDOL CONTRAST (ORAL USE) VIAL PO PRN (08:53)
--- NOTE | 2023-10-31 11:49 | CT ---
EXAMINATION TYPE: CT abdomen pelvis w con DATE OF EXAM: 10/31/2023 COMPARISON: 10/27/2023 INDICATION: Follow up for intra-abdominal abscess. DLP: 1913 mGycm, Automated exposure control for dose reduction was used. CONTRAST: 100 mL of Isovue 300. Study performed with Oral Contrast TECHNIQUE: Axial images were obtained from above the diaphragm to the pubic rami in the axial plane a t 5 mm thick sections. Reconstructed images are reviewed on the computer in the coronal plane. FINDINGS: Limited CT sections are obtained the lung bases. There is a small right and left pleural effusion sl ightly increased from comparison. Bibasilar consolidations are in the posterior lung bases. Correlate for atelectasis and pneumonia.. CT ABDOMEN: Postsurgical skin latricia are present in the midline. Liver: Normal Spleen: Normal. Small splenule is anterior. Pancreas: Normal Adrenal glands: The adrenal glands are normal. Gallbladder: Normal Kidneys: No masses are evident. No hydronephrosis is present. No cysts are present. No renal stone s are evident. Aorta: Normal Inferior vena cava: Normal. CT PELVIS: Within the mid pelvis there is an air-fluid level which appears to be loculated. This does not appear to be a loop of bowel and may be an abscess measuring 9.3 x 3.4 cm. This is minimally dim inished in size from comparison. No free air is evident. There are a few scattered diverticuli within the sigmoid colon region No dilated small bowel loops are evident. A few small bowel loops are somewhat prominent however in t he mid abdomen Loops of bowel distended with oral contrast appear normal There are loops of bowel whi ch are incompletely distended or lack oral contrast limiting their evaluation. Appendix: Normal as visualized. Urinary bladder: Normal. Genitourinary structures: Prostate contains calcification Osseous structures: No suspicious lytic or sclerotic lesions. IMPRESSION: 1. Minimal decrease in size of the persistent abscess with air-fluid level mid pelvis. 2. Small bilateral pleural effusions with adjacent infiltrate may be atelectasis.
[2023-10-31] MEDS ORDERED: IBUPROFEN 600 MG TAB PO PRN (12:27)
[2023-10-31] MEDS: LORazepam 2 MG/ML INJ IV PRN (12:35)
[2023-10-31] MEDS: IBUPROFEN 600 MG TAB PO STA (12:35)
[2023-10-31 13:04] LABS: Basophils % (A) 0 %; Eosinophils % (A) 0 %; HCT 30.3 % (39.0-53.0); HGB 9.5 gm/dL (13.0-17.5); Hypochromasia Slight; Lymphocytes # (A) 0.5 k/uL (1.0-4.8); Lymphocytes % (A) 5 %; MCH 25.8 pg (25.0-35.0); MCHC 31.3 g/dL (31.0-37.0); MCV 82.6 fL (80.0-100.0); Mean Platelet Volume 10.1; Monocytes # (A) 0.5 k/uL (0-1.0); Monocytes % (A) 5 %; Neutrophils # (A) 8.3 k/uL (1.3-7.7); Neutrophils % (A) 88 %; Platelet Count 284 k/uL (150-450); RBC 3.67 m/uL (4.30-5.90); RDW 14.6 % (11.5-15.5); WBC 9.4 k/uL (3.8-10.6)
--- NOTE | 2023-10-31 14:49 | P.PN ---
Subjective Progress Note Date: 10/31/23 Principal diagnosis: patient presented with abdominal pain,postop day 9 status post exploratory laparotomy with small bowel resection for small bowel inflammation Patient states she's feeling better abdominal pain improving currently moving bowels and passing flatulence. Denies nausea and vomiting small amount of drainage in the drain tubing 10/31/2023 Patient is awake alert oriented 3 vital signs are stable patient is afebrile complaining of mild to moderate incisional pain otherwise is feeling well Objective - Vital Signs Vital signs: Vital Signs Temp 100.3 F H 10/31/23 11:58 Pulse 78 10/31/23 11:58 Resp 20 10/31/23 11:58 BP 149/87 10/31/23 11:58 Pulse Ox 93 L 10/31/23 11:58 FiO2 Intake & Output 10/30/23 10/31/23 10/31/23 18:59 06:59 18:59 Intake Total 1100 Balance 1100 Weight 117.934 kg Intake: Intake, IV Titration 1100 Amount Lactated Ringers 1,000 ml 1000 @ 125 mls/hr IV .Q8H JULIET Rx#:[id number] Piperacillin-Tazobactam 3 100 .375 gm In Sodium Chloride 0.9% 100 ml @ 25 mls/hr IVPB Q8HR JULIET Rx# :[id number] Other: # Voids 1 3 # Bowel Movements 1 - Exam General: [Patient awake, alert and oriented times 3. Patient in no acute distress.] HEENT: [PERRL. EOMI. No pharyngeal erythema or exudate.] Neck: [No adenopathy.] Cardiac: [Heart regular in rate and rhythm. No S3. No S4. No clicks, rubs. No murmur.] Lungs: [Clear to auscultation bilaterally.] Abdomen: [No mass. No organomegaly. Bowel sounds presnt and normoactive in all 4 quadrants. some loose stool, incision clean and dry, small area of dehiscence no drainage Extremes: [No edema no cyanosis no claudication normal pulses] : normal male genitalia Musculoskeletal: [No joint erythema, edema or tenderness.] Skin: [No rash.] Neurologic: [No lateralizing deficits. CN II - XII grossly intact.] Lymphatic: [No adenopathy.] - Labs CBC & Chem 7: 10/31/23 12:53 10/30/23 08:43 Labs: Abnormal Lab Results - Last 24 Hours (Table) 10/31/23 Range/Units 12:53 RBC 3.67 L (4.30-5.90) m/uL Hgb 9.5 L (13.0-17.5) gm/dL Hct 30.3 L (39.0-53.0) % Neutrophils # 8.3 H (1.3-7.7) k/uL Lymphocytes # 0.5 L (1.0-4.8) k/uL Microbiology - Last 24 Hours (Table) 10/27/23 12:06 Blood Culture - Preliminary Blood Assessment and Plan (1) Abdominal pain Current Visit: Yes Status: Acute Code(s): R10.9 - UNSPECIFIED ABDOMINAL PAIN SNOMED Code(s): 73904860 (2) Internal hernia Current Visit: Yes Status: Acute Code(s): K45.8 - OTH ABDOMINAL HERNIA WITHOUT OBSTRUCTION OR GANGRENE SNOMED Code(s): 34225206 (3) Leukocytosis Current Visit: Yes Status: Acute Code(s): D72.829 - ELEVATED WHITE BLOOD CELL COUNT, UNSPECIFIED SNOMED Code(s): 352472694 (4) Peritonitis Current Visit: Yes Status: Acute Code(s): K65.9 - PERITONITIS, UNSPECIFIED SNOMED Code(s): 25351147 (5) Sepsis Current Visit: Yes Status: Acute Code(s): A41.9 - SEPSIS, UNSPECIFIED ORGANISM SNOMED Code(s): 24638429 Plan: small bowel enteritis post-exploratory lap Diverticulosis diverticulitis Continuous pain management IV antibiotic therapy IV fluids advancing diet as tolerated Time with Patient: Greater than 30
--- NOTE | 2023-10-31 14:56 | XR ---
EXAMINATION TYPE: XR chest 2V DATE OF EXAM: 10/31/2023 COMPARISON: 10/27/2023 TECHNIQUE: PA and lateral views submitted. HISTORY: Shortness of breath FINDINGS: Patchy perihilar infiltrates. There is no pneumothorax. Biapical pleural thickening. Tiny pleural eff usion or thickening noted on the right.. Heart size normal and no overt failure. Osseous structures demonstrate hypertrophic and degenerative changes of the spine. Widening of the left AC joint may be related to chronic resorption of the clavicle. IMPRESSION: 1. Patchy perihilar and lower lobe atelectasis or early infiltrate with tiny right pleural effusion.
--- NOTE | 2023-10-31 14:56 | P.PN ---
Subjective Progress Note Date: 10/31/23 CHIEF COMPLAINT: Abdominal pain HISTORY OF PRESENT ILLNESS: Patient is postop day #9 status post exploratory laparotomy with small bowel resection for small bowel inflammation. Patient reports having bowel movements. Denies any nausea or vomiting. Patient had increased abdominal pain to the right side of his incision last night. And also had a fever as high as 102. Patient has had low-grade fevers throughout the day. Heart rate and blood pressure have remained stable. He is requiring oxygen 4 L at 93%. Patient does appear short of breath. WBC normal at 9.[address] scan abdomen pelvis reports minimal decrease in size of persistent abscess with air-fluid level mid pelvis. Small bilateral pleural effusions with adjacent infiltrate may be atelectasis. PHYSICAL EXAM: VITAL SIGNS: Reviewed. GENERAL: no acute distress. ABDOMEN: Soft. Nondistended. Incision site clean and dry. Small area of dehiscence is smaller in size. No drainage noted. Mild tenderness at incision site. No guarding or rebound noted. NEUROLOGIC: Alert and oriented. Cranial nerves II through XII grossly intact. ASSESSMENT: 1. Small bowel enteritis status post exploratory laparotomy with small bowel resection 2. Abscess in the mid pelvis noted on CT PLAN: -Dr. Santillan and Dr. Loja discussed abscess in mid pelvis CT scan findings. The abscess wall is thin and not drainable per Dr. Loja. Dr. Santillan did discuss this with patient. Patient was given the option of surgical inte rvention or to monitor on IV antibiotics. At this time patient does not want any surgical intervention and would like to be monitored on IV antibiotics. Patient's vitals are stable. White count is normal. -Continue Tylenol and Motrin for fevers -Continue antibiotics -Downgrade diet to clear liquids -Encourage patient to use incentive spirometer. Continue abdominal binder. -Continue pain management -Repeat labs in a.m. -Resume IV fluids normal saline at 125 mL/h -Chest x-ray ordered for shortness of breath -Add Ensure clear -GI prophylaxis Protonix and DVT prophylaxis Lovenox Physician Radiation Control Specialist note has been reviewed by physician. Signing provider agrees with the documented findings, assessment, and plan of care. Objective - Vital Signs Vital signs: Vital Signs Temp 100.3 F H 10/31/23 11:58 Pulse 78 10/31/23 11:58 Resp 20 10/31/23 11:58 BP 149/87 10/31/23 11:58 Pulse Ox 93 L 10/31/23 11:58 FiO2 Intake & Output 10/30/23 10/31/23 10/31/23 18:59 06:59 18:59 Intake Total 1100 Balance 1100 Weight 117.934 kg Intake: Intake, IV Titration 1100 Amount Lactated Ringers 1,000 ml 1000 @ 125 mls/hr IV .Q8H JULIET Rx#:[id number] Piperacillin-Tazobactam 3 100 .375 gm In Sodium Chloride 0.9% 100 ml @ 25 mls/hr IVPB Q8HR JULIET Rx# :[id number] Other: # Voids 1 3 # Bowel Movements 1 - Labs CBC & Chem 7: 10/31/23 12:53 10/30/23 08:43 Labs: Microbiology - Last 24 Hours (Table) 10/27/23 12:06 Blood Culture - Preliminary Blood
[2023-10-31] MEDS: SODIUM CHLORIDE 0.9% 1,000 ML IV SCH (16:52)
[2023-11-01 08:47] LABS: Basophils # (A) 0.01 X 10*3/uL (0.00-0.10); Basophils % (A) 0.1 %; Eosinophils # (A) 0 X 10*3/uL (0.04-0.35); Eosinophils % (A) 0 %; HCT 27.2 % (39.6-50.0); HGB 8.9 g/dL (13.0-17.0); Lymphocytes # (A) 0.65 X 10*3/uL (0.90-5.00); Lymphocytes % (A) 7.4 %; MCH 26.4 pg (27.0-32.0); MCHC 32.7 g/dL (32.0-37.0); MCV 80.7 FL (80.0-97.0); Mean Platelet Volume 10.2 FL (9.5-12.2); Monocytes # (A) 0.71 X 10*3/uL (0.20-1.00); Monocytes % (A) 8.1 %; NRBC Per 100 WBC 0 X 10*3/uL (0.00-0.01); Neutrophils # (A) 7.21 X 10*3/uL (1.80-7.70); Neutrophils % (A) 82.6 %; Platelet Count 312 X 10*3/uL (140-440); RBC 3.37 X 10*6/uL (4.40-5.60); RDW 15.7 % (11.5-14.5); WBC 8.74 X 10*3/uL (4.50-10.00)
[2023-11-01 09:13] LABS: BUN/Creat Ratio 10.71 Ratio (12.00-20.00); Blood Urea Nitrogen 7.5 mg/dL (9.0-27.0); Calcium 7.9 mg/dL (8.7-10.3); Carbon Dioxide 23.9 mmol/L (21.6-31.8); Chloride 102 mmol/L (96-109); Glucose 105 mg/dL (70-110); Potassium 3.6 mmol/L (3.5-5.5); Sodium 138 mmol/L (135-145)
--- NOTE | 2023-11-01 11:24 | P.PN ---
Subjective Progress Note Date: 10/30/23 Principal diagnosis: Reason for follow-up is sepsis abdominal source Patient is a 37-year-old male with a past medical history significant for chronic back pain presenting to the hospital for evaluation of abdominal pain and fever, CT abdominal pelvis suspicious for internal hernia possible obstruction s/p laparotomy small bowel resection. On today's evaluation that is 10/29/2023,the patient did spike a fever of 102 F this afternoon patient has been complaining of abdominal pain slight nausea but no vomiting did have a bowel movement no chest pain shortness of breath or cough Patient did have a white count of 7.5, creatinine 0.71 Objective - Vital Signs Vital signs: Vital Signs Temp 98.3 F 10/30/23 07:24 Pulse 69 10/30/23 07:24 Resp 17 10/30/23 07:24 BP 108/66 10/30/23 07:24 Pulse Ox 94 L 10/30/23 07:24 FiO2 Intake & Output 10/29/23 10/30/23 10/30/23 18:59 06:59 18:59 Weight 117.934 kg Other: # Voids 3 2 1 # Bowel Movements 1 - Exam GENERAL DESCRIPTION: Middle-age male up in the room in no distress RESPIRATORY SYSTEM: Unlabored breathing , decreased breath sounds at bases HEART: S1 S2 regular rate and rhythm , ABDOMEN: Soft , mild distention and tenderness EXTREMITIES: No edema feet - Labs CBC & Chem 7: 11/01/23 04:28 11/01/23 04:28 Labs: Abnormal Lab Results - Last 24 Hours (Table) 10/30/23 10/30/23 Range/Units 08:43 08:43 RBC 3.61 L (4.30-5.90) m/uL Hgb 9.5 L D (13.0-17.5) gm/dL Hct 30.1 L (39.0-53.0) % Lymphocytes # 0.6 L (1.0-4.8) k/uL Glucose 106 H (74-99) mg/dL Calcium 8.0 L (8.4-10.2) mg/dL Microbiology - Last 24 Hours (Table) 10/27/23 12:06 Blood Culture - Preliminary Blood Assessment and Plan (1) Leukocytosis Current Visit: Yes Status: Acute Code(s): D72.829 - ELEVATED WHITE BLOOD CELL COUNT, UNSPECIFIED SNOMED Code(s): 840314826 (2) Peritonitis Current Visit: Yes Status: Acute Code(s): K65.9 - PERITONITIS, UNSPECIFIED SNOMED Code(s): 42280907 Plan: 1patient presented hospital with sepsis in this patient who did have a fever tachycardia elevated white count presented with abdominal pain and concerning for internal herniation and possible small bowel inflammation/ischemia s/p resection with no clear documentation of any perforation, will need to cover for the enteric gram-negative aerobes and anaerobes to the likely pathogen 2-patient did have new fever and also complaining of more abdominal pain for the patient did have repeat CT abdomen pelvis concerning for diverticulitis and possible abscess, patient did have improvement in his fever pattern but did spike another fever this afternoon we will have to repeat his CT to make sure no evidence of any worsening abscess that may need surgical drainage patient is covered with Zosyn blood cultures will be followed Multiple question concern answered Dictation was produced using [employer] dictation software. please excuse any grammatical, word or spelling errors. Time with Patient: Less than 30
--- NOTE | 2023-11-01 11:27 | P.PN ---
Subjective Progress Note Date: 10/31/23 Principal diagnosis: Reason for follow-up is sepsis abdominal source Patient is a 37-year-old male with a past medical history significant for chronic back pain presenting to the hospital for evaluation of abdominal pain and fever, CT abdominal pelvis suspicious for internal hernia possible obstruction s/p laparotomy small bowel resection. On today's evaluation that is 10/31/2023,the patient did have a low-grade fever 100.5 F this morning the patient is complaining of not feeling well and abdominal discomfort about 5-6 out of 10 some nausea but no vomiting did have a bowel movement no chest pain some shortness of breath and currently on a 4 L nasal cannula oxygen denies any cough or sputum production. The patient white count is 9.4 BMP was not done today, blood culture has been negative so far Objective - Vital Signs Vital signs: Vital Signs Temp 100.5 F H 10/31/23 10:51 Pulse 64 10/31/23 07:20 Resp 20 10/31/23 07:20 BP 125/71 10/31/23 07:20 Pulse Ox 90 L 10/31/23 07:20 FiO2 Intake & Output 10/30/23 10/31/23 10/31/23 18:59 06:59 18:59 Intake Total 1100 Balance 1100 Intake: Intake, IV Titration 1100 Amount Lactated Ringers 1,000 ml 1000 @ 125 mls/hr IV .Q8H JULIET Rx#:[id number] Piperacillin-Tazobactam 3 100 .375 gm In Sodium Chloride 0.9% 100 ml @ 25 mls/hr IVPB Q8HR JULIET Rx# :[id number] Other: # Voids 1 3 # Bowel Movements 1 - Exam GENERAL DESCRIPTION: Middle-age male up in the room in no distress RESPIRATORY SYSTEM: Unlabored breathing , decreased breath sounds at bases HEART: S1 S2 regular rate and rhythm , ABDOMEN: Soft , mild distention and tenderness EXTREMITIES: No edema feet - Labs CBC & Chem 7: 11/01/23 04:28 11/01/23 04:28 Labs: Microbiology - Last 24 Hours (Table) 10/27/23 12:06 Blood Culture - Preliminary Blood Assessment and Plan (1) Leukocytosis Current Visit: Yes Status: Acute Code(s): D72.829 - ELEVATED WHITE BLOOD CELL COUNT, UNSPECIFIED SNOMED Code(s): 975341595 (2) Peritonitis Current Visit: Yes Status: Acute Code(s): K65.9 - PERITONITIS, UNSPECIFIED SNOMED Code(s): 13821995 Plan: 1patient presented hospital with sepsis in this patient who did have a fever tachycardia elevated white count presented with abdominal pain and concerning for internal herniation and possible small bowel inflammation/ischemia s/p resection with no clear documentation of any perforation, will need to cover for the enteric gram-negative aerobes and anaerobes to the likely pathogen 2-patient did have new fever and also complaining of more abdominal pain for the patient did have repeat CT abdomen pelvis concerning for diverticulitis and abscess with initial improvement in his fever pattern however the patient spike a fever again on 10/30/2023 for his patient did have repeat CT abdominal pelvis which was reviewed with radiologist Dr. Loja, abscess cavity is about the same no worsening abscess was noticed there is features of diverticulitis unfortunately it cannot be drained CT-guided, patient care has been discussed in detail with the surgeon who will be discussing the option with the patient 3for now patient be continued on Zosyn, options including surgical drainage and colostomy as well as medical therapy with antibiotic only has been discussed in detail multiple question concern has been also patient simply frustrated and this has been communicated to the surgeon Dictation was produced using [employer] dictation software. please excuse any grammatical, word or spelling errors. Time with Patient: Less than 30
--- NOTE | 2023-11-01 12:57 | P.PN ---
Subjective Progress Note Date: 11/01/23 CHIEF COMPLAINT: Abdominal pain HISTORY OF PRESENT ILLNESS: Patient is postop day #10 status post exploratory laparotomy with small bowel resection for small bowel inflammation. Patient reports that his pain is less. He is rating his pain about a 3 out of 10. Describes it more as a dull discomfort of the right side of the abdomen and incision. He is having flatus and small bowel movements. No nausea or vomiting. He is tolerating the clear liquids. He did have a low-grade temp of 100 last night respiratory rate slightly elevated at 28 now improved. He is satting at room air 91%. Temp 98.3. Patient does report that he is coughing up some sputum. Chest x-ray patchy perihilar and lower lobe atelectasis or early infiltrate with tiny right pleural effusion. WBC 8.74 HGB 8.[address] scan abdomen pelvis reports minimal decrease in size of persistent abscess with air-fluid level mid pelvis. Small bilateral pleural effusions with adjacent infiltrate may be atelectasis. PHYSICAL EXAM: VITAL SIGNS: Reviewed. GENERAL: no acute distress. ABDOMEN: Soft. mildly distended. Incision site clean and dry. Small area of dehiscence is smaller in size. No drainage noted. Mild tenderness at right side of incision site. No guarding or rebound noted. NEUROLOGIC: Alert and oriented. Cranial nerves II through XII grossly intact. ASSESSMENT: 1. Small bowel enteritis status post exploratory laparotomy with small bowel resection 2. Abscess in the mid pelvis noted on CT not drainable per interventional radiology service PLAN: -Consult for PICC line placement and consult dietitian for TPN -Continue conservative management with IV antibiotics -Continue Tylenol and Motrin for fevers -Continue clear liquids -Encourage patient to use incentive spirometer. -Continue abdominal binder. -Continue pain management -Repeat labs in a.m. -continue IV fluids -Continue Ensure protein supplement -Encourage patient to ambulate -GI prophylaxis Protonix and DVT prophylaxis Lovenox Physician Bursar note has been reviewed by physician. Signing provider agrees with the documented findings, assessment, and plan of care. Objective - Vital Signs Vital signs: Vital Signs Temp 98.5 F 11/01/23 07:07 Pulse 76 11/01/23 07:07 Resp 17 11/01/23 07:07 BP 112/69 11/01/23 07:07 Pulse Ox 92 L 11/01/23 07:07 FiO2 Intake & Output 10/31/23 11/01/23 11/01/23 18:59 06:59 18:59 Intake Total 1979 2434 Output Total 1 Balance 1979 2433 Weight 117.934 kg Intake: Intake, IV Titration 1000 1475 Amount Piperacillin-Tazobactam 3 200 100 .375 gm In Sodium Chloride 0.9% 100 ml @ 25 mls/hr IVPB Q8HR JULIET Rx# :[id number] Sodium Chloride 0.9% 1, 800 1375 000 ml @ 125 mls/hr IV . Q8H JULIET Rx#:[id number] Oral 980 960 Output: Stool 1 Other: Voiding Method Toilet Urinal # Voids 1 # Bowel Movements 1 - Labs CBC & Chem 7: 11/01/23 04:28 11/01/23 04:28 Labs: Abnormal Lab Results - Last 24 Hours (Table) 10/31/23 11/01/23 11/01/23 Range/Units 12:53 04:28 04:28 RBC 3.67 L 3.37 L (4.30-5.90) m/uL Hgb 9.5 L 8.9 L (13.0-17.5) gm/dL Hct 30.3 L 27.2 L (39.0-53.0) % MCH 26.4 L (27.0-32.0) pg RDW 15.7 H (11.5-14.5) % Immature Gran # 0.16 H (0.00-0.04) X 10*3/uL Neutrophils # 8.3 H (1.3-7.7) k/uL Lymphocytes # 0.5 L 0.65 L (1.0-4.8) k/uL Eosinophils # 0 L (0.04-0.35) X 10*3/uL Anion Gap 12.10 H (4.00-12.00) mmol/L BUN 7.5 L (9.0-27.0) mg/dL BUN/Creatinine Ratio 10.71 L (12.00-20.00) Ratio Calcium 7.9 L (8.7-10.3) mg/dL Microbiology - Last 24 Hours (Table) 10/30/23 17:52 Blood Culture - Preliminary Blood
[2023-11-01] MEDS ORDERED: LIDOCAINE 1% INJ 10MG/ML (20 ML MDV) ONE (13:56)
--- NOTE | 2023-11-01 14:27 | P.OP ---
Date of Procedure: 11/01/23 Description of Procedure: Date of Procedure: 11/01/2023 Preoperative Diagnosis: Need for long-term nutrition and IV antibiotic access. Postoperative Diagnosis: Same. Procedure(s) Performed: Ultrasound-guided cannulation left basilic vein. Insertion of peripherally inserted central catheter under fluoroscopic guidance. Anesthesia: local (1% Xylocaine.) Surgeon: Julita Estimated Blood Loss (ml): 5 IV fluids (ml): 0 Urine output (ml): 0 Pathology: none sent Condition: stable Disposition: no change Indications for Procedure: Patient is a 37-year-old male who had a recent exploratory laparotomy now with an abdominal abscess requiring IV antibiotics and nutrition. Patient is offered a PICC line to allow for intravenous administration of antibiotics. Description of Procedure: Patient was brought to the special procedure suite. The left upper extremity sterilely prepped and draped in usual manner. Ultrasound was utilized to identify the basilic vein which was normally compressible free of visible thrombus. Permenant image was stored. 1% Xylocaine was utilized for local anesthesia tissues overlying the vein. Through this anesthetized area and with the aid of ultrasound a micropuncture needle was utilized to cannulate the vein. Once cannulated, Softip guidewire was advanced into the vein. The needle was withdrawn and a micropuncture sheath and dilator advanced over the guidewire. The guidewire was withdrawn and exchanged for the PICC guidewire and measured 50 cm to the cavoatrial junction. The catheter was cut to size and advanced into the cavoatrial junction without resistance. The sheath was peeled away. Blood was easily withdrawn through the catheter and the catheter was then flushed with heparinized saline solution and secured to the skin. Patient tolerated procedure well and was returned to their room in satisfactory and stable condition.
[2023-11-01 15:53] LABS: Ionized Calcium 4.6 mg/dL (4.5-5.3)
[2023-11-01 16:08] LABS: Magnesium 1.9 mg/dL (1.6-2.3); Phosphorus 3.5 mg/dL (2.5-4.5)
[2023-11-01] MEDS ORDERED: LORazepam 1 MG/0.5 ML VIAL IV PRN (17:09)
[2023-11-02] MEDS: MVI, ADULT NO.4 WITH VIT K 10 ML, TRACE (CONC-1ML/DOSE) 1 ML in AMINO ACID 5%-D20W+LYTE... IV ONE (00:10)
[2023-11-02] MEDS: LORazepam 1 MG/0.5 ML VIAL IV PRN (04:25)
[2023-11-02 07:47] LABS: African American GFR (CKD) >90 (>60 ml/min/1.73 sqM); Anion Gap 7 mmol/L; Blood Urea Nitrogen 6 mg/dL (9-20); Carbon Dioxide 25 mmol/L (22-30); Chloride 105 mmol/L (98-107); Glucose 130 mg/dL (74-99); Magnesium 1.9 mg/dL (1.6-2.3); Non-African American GFR(CKD) >90 (>60 ml/min/1.73 sqM); Phosphorus 4.1 mg/dL (2.5-4.5); Potassium 3.4 mmol/L (3.5-5.1); Sodium 137 mmol/L (137-145)
--- NOTE | 2023-11-02 08:17 | P.PN ---
Subjective Progress Note Date: 11/01/23 Principal diagnosis: Reason for follow-up is sepsis abdominal source Patient is a 37-year-old male with a past medical history significant for chronic back pain presenting to the hospital for evaluation of abdominal pain and fever, CT abdominal pelvis suspicious for internal hernia possible obstruction s/p laparotomy small bowel resection. On today's evaluation that is 11/01/2023, Patient did have improvement in his fever pattern and is afebrile today, patient is breathing comfortable room air and mention feeling better today abdominal pain has slightly decreased in intensity denies any nausea no vomiting no chest pain shortness of breath or cough. Patient white count normal at 8.74, creatinine 0.7 blood culture has been negative so far Objective - Vital Signs Vital signs: Vital Signs Temp 98.5 F 11/01/23 07:07 Pulse 76 11/01/23 07:07 Resp 17 11/01/23 07:07 BP 112/69 11/01/23 07:07 Pulse Ox 92 L 11/01/23 07:07 FiO2 Intake & Output 10/31/23 11/01/23 11/01/23 18:59 06:59 18:59 Intake Total 1979 2434 Output Total 1 Balance 1979 2433 Weight 117.934 kg Intake: Intake, IV Titration 1000 1475 Amount Piperacillin-Tazobactam 3 200 100 .375 gm In Sodium Chloride 0.9% 100 ml @ 25 mls/hr IVPB Q8HR [facility] Rx# :[id number] Sodium Chloride 0.9% 1, 800 1375 000 ml @ 125 mls/hr IV . Q8H [facility] Rx#:[id number] Oral 980 960 Output: Stool 1 Other: Voiding Method Toilet Urinal # Voids 1 # Bowel Movements 1 - Exam GENERAL DESCRIPTION: Middle-age male up in the room in no distress RESPIRATORY SYSTEM: Unlabored breathing , decreased breath sounds at bases HEART: S1 S2 regular rate and rhythm , ABDOMEN: Soft , mild distention and tenderness EXTREMITIES: No edema feet - Labs CBC & Chem 7: 11/01/23 04:28 11/02/23 07:15 Labs: Abnormal Lab Results - Last 24 Hours (Table) 10/31/23 11/01/23 11/01/23 Range/Units 12:53 04:28 04:28 RBC 3.67 L 3.37 L (4.30-5.90) m/uL Hgb 9.5 L 8.9 L (13.0-17.5) gm/dL Hct 30.3 L 27.2 L (39.0-53.0) % MCH 26.4 L (27.0-32.0) pg RDW 15.7 H (11.5-14.5) % Immature Gran # 0.16 H (0.00-0.04) X 10*3/uL Neutrophils # 8.3 H (1.3-7.7) k/uL Lymphocytes # 0.5 L 0.65 L (1.0-4.8) k/uL Eosinophils # 0 L (0.04-0.35) X 10*3/uL Anion Gap 12.10 H (4.00-12.00) mmol/L BUN 7.5 L (9.0-27.0) mg/dL BUN/Creatinine Ratio 10.71 L (12.00-20.00) Ratio Calcium 7.9 L (8.7-10.3) mg/dL Microbiology - Last 24 Hours (Table) 10/30/23 17:52 Blood Culture - Preliminary Blood Assessment and Plan (1) Peritonitis Current Visit: Yes Status: Acute Code(s): K65.9 - PERITONITIS, UNSPECIFIED SNOMED Code(s): 73613652 (2) Perforation of sigmoid colon due to diverticulitis Current Visit: Yes Status: Acute Code(s): K57.20 - DVTRCLI OF LG INT W PERFORATION AND ABSCESS W/O BLEEDING SNOMED Code(s): 3305082439019316 Plan: 1patient presented hospital with sepsis in this patient who did have a fever tachycardia elevated white count presented with abdominal pain and concerning for internal herniation and possible small bowel inflammation/ischemia s/p resection with no clear documentation of any perforation, will need to cover for the enteric gram-negative aerobes and anaerobes to the likely pathogen 2-patient did have new fever and also complaining of more abdominal pain for the patient did have repeat CT abdomen pelvis concerning for diverticulitis and abscess with initial improvement in his fever pattern however the patient spike a fever again on 10/30/2023 for his patient did have repeat CT abdominal pelvis which was reviewed with radiologist Dr. Loja, abscess cavity is about the same no worsening abscess was noticed there is features of diverticulitis unfortunately it cannot be drained CT-guided, patient care has been discussed in detail with the surgeon who have discussed option of surgery versus observation apparently the patient has opted for observation at this point and no surgical intervention 3for now patient be continued on Zosyn, and will monitor clinical course closely multiple question concern answered Dictation was produced using [employer] dictation software. please excuse any grammatical, word or spelling errors. Time with Patient: Less than 30
--- NOTE | 2023-11-02 10:02 | IR ---
EXAMINATION TYPE: IR cvc insert >=5 years DATE OF EXAM: 11/02/2023 COMPARISON: NONE HISTORY: Fluoroscopy time. Fluoroscopy was provided to the referring clinician.
[2023-11-02] MEDS: POTASSIUM CHLORIDE 20 MEQ in WATER FOR INJECTION 1 100ML.BAG IVPB SCH (10:43)
--- NOTE | 2023-11-02 15:13 | P.PN ---
Subjective Progress Note Date: 11/02/23 CHIEF COMPLAINT: Abdominal pain HISTORY OF PRESENT ILLNESS: Patient is postop day #11 status post exploratory laparotomy with small bowel resection for small bowel inflammation. Patient had some issues with nursing staff and receiving anxiety and pain medication during the night. Patient reported some increased pain on the right side of the abdomen. But no pelvic pain. He is having flatus. Reports having bowel movements. Denies any nausea or vomiting. Overall he reports that he is feeling better each day. He has PICC line with TPN for nutrition support afebrile. WBC 8.74 potassium 3.4 being replaced PHYSICAL EXAM: VITAL SIGNS: Reviewed. GENERAL: no acute distress. ABDOMEN: Soft. nondistended. Incision site clean and dry. Small area of dehiscence is smaller in size. No drainage noted. Mild tenderness at right side of incision site. No guarding or rebound noted. no pain with palpation in the lower abdomen pelvis area NEUROLOGIC: Alert and oriented. Cranial nerves II through XII grossly intact. ASSESSMENT: 1. Small bowel enteritis status post exploratory laparotomy with small bowel resection 2. Abscess in the mid pelvis noted on CT not drainable per interventional r adiology service PLAN: -Continue clear liquid diet -Continue conservative management with IV antibiotics. Continue to monitor patient closely. If patient clinically worsens he may require surgical intervention. Patient is in agreement with continuing conservative management with antibiotics. -Continue IV fluids -Continue pain management -Encourage patient to ambulate -Encourage patient to use incentive spirometer -Xanax 0.25 mg twice daily ordered as needed for anxiety -senior group manager arranging outpatient IV antibiotics. Discharge antibiotics per infectious disease. -GI prophylaxis Protonix and DVT prophylaxis Lovenox Physician Information Security note has been reviewed by physician. Signing provider agrees with the documented findings, assessment, and plan of care. Objective - Vital Signs Vital signs: Vital Signs Temp 98.6 F 11/02/23 07:56 Pulse 66 11/02/23 08:00 Resp 19 11/02/23 08:00 BP 129/83 11/02/23 07:56 Pulse Ox 90 L 11/02/23 07:56 FiO2 Intake & Output 11/01/23 11/02/23 11/02/23 18:59 06:59 18:59 Intake Total 1500 900 Balance 1500 900 Weight 117.934 kg 117.934 kg Intake: Intake, IV Titration 1500 Amount Sodium Chloride 0.9% 1, 1500 000 ml @ 125 mls/hr IV . Q8H [facility] Rx#:[id number] Oral 900 Other: Voiding Method Toilet Urinal # Voids 1 3 # Bowel Movements 1 - Labs CBC & Chem 7: 11/01/23 04:28 11/02/23 07:15 Labs: Abnormal Lab Results - Last 24 Hours (Table) 11/02/23 Range/Units 07:15 Potassium 3.4 L (3.5-5.1) mmol/L BUN 6 L (9-20) mg/dL Creatinine 0.63 L (0.66-1.25) mg/dL Glucose 130 H (74-99) mg/dL Calcium 8.0 L (8.4-10.2) mg/dL Microbiology - Last 24 Hours (Table) 10/30/23 17:52 Blood Culture - Preliminary Blood 10/27/23 12:06 Blood Culture - Final Blood
--- NOTE | 2023-11-02 17:45 | P.PN ---
Subjective Progress Note Date: 11/02/23 Principal diagnosis: patient presented with abdominal pain,postop day 11 status post exploratory laparotomy with small bowel resection for small bowel inflammation,+bm, +flatus Patient states she's feeling better abdominal pain improving currently moving bowels and passing flatulence. Denies nausea and vomiting small amount of drainage in the drain tubing 10/31/2023 Patient is awake alert oriented 3 vital signs are stable patient is afebrile complaining of mild to moderate incisional pain otherwise is feeling well 11/02/2023 pod 11 s/p exp lap with small bowel resection for inflamitory process, +bm, +flatus, + incisional pain, basilic vein catheter for TPN for nutritional support pt a&o x 3 vss afebrile Objective - Vital Signs Vital signs: Vital Signs Temp 98.9 F 11/02/23 14:07 Pulse 90 11/02/23 14:07 Resp 18 11/02/23 14:07 BP 121/74 11/02/23 14:07 Pulse Ox 96 11/02/23 14:07 FiO2 Intake & Output 11/01/23 11/02/23 11/02/23 18:59 06:59 18:59 Intake Total 1500 900 Balance 1500 900 Weight 117.934 kg 117.934 kg Intake: Intake, IV Titration 1500 Amount Sodium Chloride 0.9% 1, 1500 000 ml @ 125 mls/hr IV . Q8H [facility] Rx#:[id number] Oral 900 Other: Voiding Method Toilet Urinal # Voids 1 3 # Bowel Movements 1 - Exam General: [Patient awake, alert and oriented times 3. Patient in no acute distress.] HEENT: [PERRL. EOMI. No pharyngeal erythema or exudate.] Neck: [No adenopathy.] Cardiac: [Heart regular in rate and rhythm. No S3. No S4. No clicks, rubs. No murmur.] Lungs: [Clear to auscultation bilaterally.] Abdomen: [No mass. No organomegaly. Bowel sounds presnt and normoactive in all 4 quadrants. some loose stool, incision clean and dry, small area of dehiscence no drainage Extremes: [No edema no cyanosis no claudication normal pulses] : normal male genitalia Musculoskeletal: [No joint erythema, edema or tenderness.] Skin: [No rash.] Neurologic: [No lateralizing deficits. CN II - XII grossly intact.] Lymphatic: [No adenopathy.] - Labs CBC & Chem 7: 11/01/23 04:28 11/02/23 07:15 Labs: Abnormal Lab Results - Last 24 Hours (Table) 11/02/23 Range/Units 07:15 Potassium 3.4 L (3.5-5.1) mmol/L BUN 6 L (9-20) mg/dL Creatinine 0.63 L (0.66-1.25) mg/dL Glucose 130 H (74-99) mg/dL Calcium 8.0 L (8.4-10.2) mg/dL Microbiology - Last 24 Hours (Table) 10/30/23 17:52 Blood Culture - Preliminary Blood 10/27/23 12:06 Blood Culture - Final Blood Assessment and Plan (1) Abdominal pain Current Visit: Yes Status: Acute Code(s): R10.9 - UNSPECIFIED ABDOMINAL PAIN SNOMED Code(s): 19027114 (2) Internal hernia Current Visit: Yes Status: Acute Code(s): K45.8 - OTH ABDOMINAL HERNIA WITHOUT OBSTRUCTION OR GANGRENE SNOMED Code(s): 22537355 (3) Leukocytosis Current Visit: Yes Status: Acute Code(s): D72.829 - ELEVATED WHITE BLOOD CELL COUNT, UNSPECIFIED SNOMED Code(s): 678677703 (4) Peritonitis Current Visit: Yes Status: Acute Code(s): K65.9 - PERITONITIS, UNSPECIFIED SNOMED Code(s): 30125849 (5) Sepsis Current Visit: Yes Status: Acute Code(s): A41.9 - SEPSIS, UNSPECIFIED ORGANISM SNOMED Code(s): 76712118 Plan: small bowel enteritis post-exploratory lap Diverticulosis diverticulitis Continuous pain management IV antibiotic therapy IV fluids TPN Clear liquids Time with Patient: Greater than 30
[2023-11-02] MEDS: FAT EMULSION 20% 250 ML IV SCH (18:12)
[2023-11-02] MEDS ORDERED: 1: MVI, ADULT NO.4 WITH VIT K 10 ML, TRACE (CONC-1ML/DOSE) 1 ML in AMINO ACID 5%-D20W+LY IV SCH (19:00)
[2023-11-02] MEDS: ALPRAZolam 0.25 MG TAB PO PRN (20:19)
[2023-11-03] MEDS: 1: MVI, ADULT NO.4 WITH VIT K 10 ML, TRACE (CONC-1ML/DOSE) 1 ML, POTASSIUM ACETATE 10 ME IV SCH (00:35)
[2023-11-03] MEDS: LORazepam 1 MG/0.5 ML VIAL IV PRN (03:59)
[2023-11-03 07:03] LABS: African American GFR (CKD) >90 (>60 ml/min/1.73 sqM); Anion Gap 7 mmol/L; Blood Urea Nitrogen 6 mg/dL (9-20); Calcium 8.2 mg/dL (8.4-10.2); Carbon Dioxide 25 mmol/L (22-30); Chloride 106 mmol/L (98-107); Glucose 167 mg/dL (74-99); Non-African American GFR(CKD) >90 (>60 ml/min/1.73 sqM); Phosphorus 4.2 mg/dL (2.5-4.5); Potassium 3.7 mmol/L (3.5-5.1); Sodium 138 mmol/L (137-145)
--- NOTE | 2023-11-03 08:12 | P.PN ---
Subjective Progress Note Date: 11/02/23 Principal diagnosis: Reason for follow-up is sepsis abdominal source Patient is a 37-year-old male with a past medical history significant for chronic back pain presenting to the hospital for evaluation of abdominal pain and fever, CT abdominal pelvis suspicious for internal hernia possible obstruction s/p laparotomy small bowel resection. On today's evaluation that is 11/02/2023, patient has been afebrile today, patient is breathing comfortably and is currently on room air, patient denies having any significant cough no chest pain shortness of breath, patient denies nausea vomiting abdominal pain slightly decreased on about 5 out of 10 did not have any bowel movement. No CBC was done today his creatinine 0.63 Objective - Vital Signs Vital signs: Vital Signs Temp 98.6 F 11/02/23 07:56 Pulse 66 11/02/23 08:00 Resp 19 11/02/23 08:00 BP 129/83 11/02/23 07:56 Pulse Ox 90 L 11/02/23 07:56 FiO2 Intake & Output 11/01/23 11/02/23 11/02/23 18:59 06:59 18:59 Intake Total 1500 900 Balance 1500 900 Weight 117.934 kg Intake: Intake, IV Titration 1500 Amount Sodium Chloride 0.9% 1, 1500 000 ml @ 125 mls/hr IV . Q8H [facility] Rx#:[id number] Oral 900 Other: Voiding Method Toilet Urinal # Voids 1 3 # Bowel Movements 1 - Exam GENERAL DESCRIPTION: Middle-age male up in the room in no distress RESPIRATORY SYSTEM: Unlabored breathing , decreased breath sounds at bases HEART: S1 S2 regular rate and rhythm , ABDOMEN: Soft , mild distention and tenderness EXTREMITIES: No edema feet - Labs CBC & Chem 7: 11/01/23 04:28 11/03/23 05:53 Labs: Abnormal Lab Results - Last 24 Hours (Table) 11/02/23 Range/Units 07:15 Potassium 3.4 L (3.5-5.1) mmol/L BUN 6 L (9-20) mg/dL Creatinine 0.63 L (0.66-1.25) mg/dL Glucose 130 H (74-99) mg/dL Calcium 8.0 L (8.4-10.2) mg/dL Microbiology - Last 24 Hours (Table) 10/30/23 17:52 Blood Culture - Preliminary Blood 10/27/23 12:06 Blood Culture - Final Blood Assessment and Plan (1) Peritonitis Current Visit: Yes Status: Acute Code(s): K65.9 - PERITONITIS, UNSPECIFIED SNOMED Code(s): 94398166 (2) Perforation of sigmoid colon due to diverticulitis Current Visit: Yes Status: Acute Code(s): K57.20 - DVTRCLI OF LG INT W PERFORATION AND ABSCESS W/O BLEEDING SNOMED Code(s): 3361518172461378 Plan: 1patient presented hospital with sepsis in this patient who did have a fever tachycardia elevated white count presented with abdominal pain and concerning for internal herniation and possible small bowel inflammation/ischemia s/p resection with no clear documentation of any perforation, will need to cover for the enteric gram-negative aerobes and anaerobes to the likely pathogen 2-patient did have new fever and also complaining of more abdominal pain for the patient did have repeat CT abdomen pelvis concerning for diverticulitis and abscess with initial improvement in his fever pattern however the patient spike a fever again on 10/30/2023 for his patient did have repeat CT abdominal pelvis which was reviewed with radiologist Dr. Loja, abscess cavity is about the same no worsening abscess was noticed there is features of diverticulitis unfortunately it cannot be drained CT-guided, patient care has been discussed in detail with the surgeon who have discussed option of surgery versus observation apparently the patient has opted for observation at this point and no surgical intervention 3 patient is afebrile and white count normal mention some improvement in abdomi nal pain continue with the Zosyn and monitor his clinical course closely Dictation was produced using [employer] dictation software. please excuse any grammatical, word or spelling errors. Time with Patient: Less than 30
[2023-11-03 09:19] LABS: Basophils # (A) 0.01 X 10*3/uL (0.00-0.10); Basophils % (A) 0.1 %; Eosinophils # (A) 0 X 10*3/uL (0.04-0.35); Eosinophils % (A) 0 %; HCT 27.9 % (39.6-50.0); HGB 8.7 g/dL (13.0-17.0); Lymphocytes # (A) 0.74 X 10*3/uL (0.90-5.00); Lymphocytes % (A) 8.3 %; MCH 25.3 pg (27.0-32.0); MCHC 31.2 g/dL (32.0-37.0); MCV 81.1 FL (80.0-97.0); Mean Platelet Volume 10.3 FL (9.5-12.2); Monocytes # (A) 0.68 X 10*3/uL (0.20-1.00); Monocytes % (A) 7.6 %; NRBC Per 100 WBC 0.03 X 10*3/uL (0.00-0.01); Neutrophils % (A) 82.8 %; Platelet Count 408 X 10*3/uL (140-440); RBC 3.44 X 10*6/uL (4.40-5.60); RDW 15.9 % (11.5-14.5); WBC 8.94 X 10*3/uL (4.50-10.00)
--- NOTE | 2023-11-03 10:26 | P.PN ---
Subjective Progress Note Date: 11/03/23 Principal diagnosis: patient presented with abdominal pain,postop day 12 status post exploratory laparotomy with small bowel resection for small bowel inflammation,+bm, +flatus Patient states she's feeling better abdominal pain improving currently moving bowels and passing flatulence. Denies nausea and vomiting small amount of drainage in the drain tubing 10/31/2023 Patient is awake alert oriented 3 vital signs are stable patient is afebrile complaining of mild to moderate incisional pain otherwise is feeling well 11/02/2023 pod 11 s/p exp lap with small bowel resection for inflamitory process, +bm, +flatus, + incisional pain, basilic vein catheter for TPN for nutritional support pt a&o x 3 vss afebrile 11/03/2023 patient is awake alert oriented 3 vital signs are stable this patient is afebrile, complains of incisional pain, otherwise states he is feeling better Objective - Vital Signs Vital signs: Vital Signs Temp 98.2 F 11/03/23 07:02 Pulse 70 11/03/23 07:02 Resp 18 11/03/23 07:02 BP 116/70 11/03/23 07:02 Pulse Ox 94 L 11/03/23 07:02 FiO2 Intake & Output 11/02/23 11/03/23 11/03/23 18:59 06:59 18:59 Intake Total 1000 2308 Balance 1000 2308 Weight 117.934 kg Intake: Intake, IV Titration 1000 2308 Amount Fat Emulsion 20% 250 ml @ 250 20.833 mls/hr IV MoFr@ 1900 [facility] Rx#:[id number] Mvi, Adult No.4 with Vit 558 K 10 ml Trace (Conc-1Ml/ Dose) 1 ml In Amino Acid 5%-D20w+Lytes*E* 1,000 ml @ 93 mls/hr IV .BY DURATION [facility] Rx#: [id number] Piperacillin-Tazobactam 3 100 .375 gm In Sodium Chloride 0.9% 100 ml @ 25 mls/hr IVPB Q8HR [facility] Rx# :[id number] Sodium Chloride 0.9% 1, 900 1500 000 ml @ 125 mls/hr IV . Q8H [facility] Rx#:[id number] Other: Voiding Method Toilet Urinal # Voids 1 4 1 - Exam General: [Patient awake, alert and oriented times 3. Patient in no acute distress.] HEENT: [PERRL. EOMI. No pharyngeal erythema or exudate.] Neck: [No adenopathy.] Cardiac: [Heart regular in rate and rhythm. No S3. No S4. No clicks, rubs. No m urmur.] Lungs: [Clear to auscultation bilaterally.] Abdomen: [No mass. No organomegaly. Bowel sounds presnt and normoactive in all 4 quadrants. some loose stool, incision clean and dry, small area of dehiscence no drainage Extremes: [No edema no cyanosis no claudication normal pulses] : normal male genitalia Musculoskeletal: [No joint erythema, edema or tenderness.] Skin: [No rash.] Neurologic: [No lateralizing deficits. CN II - XII grossly intact.] Lymphatic: [No adenopathy.] - Labs CBC & Chem 7: 11/03/23 05:53 11/03/23 05:53 Labs: Abnormal Lab Results - Last 24 Hours (Table) 11/03/23 11/03/23 Range/Units 05:53 05:53 RBC 3.44 L (4.40-5.60) X 10*6/uL Hgb 8.7 L (13.0-17.0) g/dL Hct 27.9 L (39.6-50.0) % MCH 25.3 L (27.0-32.0) pg MCHC 31.2 L (32.0-37.0) g/dL RDW 15.9 H (11.5-14.5) % Immature Gran # 0.11 H (0.00-0.04) X 10*3/uL Lymphocytes # 0.74 L (0.90-5.00) X 10*3/uL Eosinophils # 0 L (0.04-0.35) X 10*3/uL NRBC/100 WBC Diff 0.03 H (0.00-0.01) X 10*3/uL BUN 6 L (9-20) mg/dL Glucose 167 H (74-99) mg/dL Calcium 8.2 L (8.4-10.2) mg/dL Microbiology - Last 24 Hours (Table) 10/30/23 17:52 Blood Culture - Preliminary Blood Assessment and Plan (1) Abdominal pain Current Visit: Yes Status: Acute Code(s): R10.9 - UNSPECIFIED ABDOMINAL PAIN SNOMED Code(s): 98600125 (2) Internal hernia Current Visit: Yes Status: Acute Code(s): K45.8 - OTH ABDOMINAL HERNIA WITHO UT OBSTRUCTION OR GANGRENE SNOMED Code(s): 12908227 (3) Leukocytosis Current Visit: Yes Status: Acute Code(s): D72.829 - ELEVATED WHITE BLOOD CELL COUNT, UNSPECIFIED SNOMED Code(s): 410192980 (4) Peritonitis Current Visit: Yes Status: Acute Code(s): K65.9 - PERITONITIS, UNSPECIFIED SNOMED Code(s): 19089177 (5) Sepsis Current Visit: Yes Status: Acute Code(s): A41.9 - SEPSIS, UNSPECIFIED ORGANISM SNOMED Code(s): 05120840 Plan: small bowel enteritis post-exploratory lap Diverticulosis diverticulitis Continuous pain management IV antibiotic therapy IV fluids TPN Clear liquids Time with Patient: Greater than 30
[2023-11-03] MEDS: POTASSIUM CHLORIDE 20 MEQ in WATER FOR INJECTION 1 100ML.BAG IVPB ONE (13:48)
--- NOTE | 2023-11-03 14:23 | P.PN ---
Subjective Progress Note Date: 11/03/23 NAEON. No N/V. No worsening abdominal pain. No F/C. No SOB or CP. Admits to flatus no BM. Tolerating diet. Ambulatory Objective - Vital Signs Vital signs: Vital Signs Temp 98.2 F 11/03/23 07:02 Pulse 70 11/03/23 07:02 Resp 18 11/03/23 07:02 BP 116/70 11/03/23 07:02 Pulse Ox 94 L 11/03/23 07:02 FiO2 Intake & Output 11/02/23 11/03/23 11/03/23 18:59 06:59 18:59 Intake Total 1000 2308 Balance 1000 2308 Weight 117.934 kg Intake: Intake, IV Titration 1000 2308 Amount Fat Emulsion 20% 250 ml @ 250 20.833 mls/hr IV MoFr@ 1900 [facility] Rx#:[id number] [facility], Adult No.4 with Vit 558 K 10 ml Trace (Conc-1Ml/ Dose) 1 ml In Amino Acid 5%-D20w+Lytes*E* 1,000 ml @ 93 mls/hr IV .BY DURATION [facility] Rx#: [id number] Piperacillin-Tazobactam 3 100 .375 gm In Sodium Chloride 0.9% 100 ml @ 25 mls/hr IVPB Q8HR [facility] Rx# :[id number] Sodium Chloride 0.9% 1, 900 1500 000 ml @ 125 mls/hr IV . Q8H [facility] Rx#:[id number] Other: Voiding Method Toilet Urinal # Voids 1 4 1 - Exam GEN: AxO, NAD Pulm: non-labored respirations Abd: soft, mildly-tender around incisions, moderately-distended. No guarding/rebound/rigidity Incision: C/D/I no erythema or fluctuence appreciated Extrem: no edema seen - Labs CBC & Chem 7: 11/03/23 05:53 11/03/23 05:53 Labs: Abnormal Lab Results - Last 24 Hours (Table) 11/03/23 11/03/23 Range/Units 05:53 05:53 RBC 3.44 L (4.40-5.60) X 10*6/uL Hgb 8.7 L (13.0-17.0) g/dL Hct 27.9 L (39.6-50.0) % MCH 25.3 L (27.0-32.0) pg MCHC 31.2 L (32.0-37.0) g/dL RDW 15.9 H (11.5-14.5) % Immature Gran # 0.11 H (0.00-0.04) X 10*3/uL Lymphocytes # 0.74 L (0.90-5.00) X 10*3/uL Eosinophils # 0 L (0.04-0.35) X 10*3/uL NRBC/100 WBC Diff 0.03 H (0.00-0.01) X 10*3/uL BUN 6 L (9-20) mg/dL Glucose 167 H (74-99) mg/dL Calcium 8.2 L (8.4-10.2) mg/dL Microbiology - Last 24 Hours (Table) 10/30/23 17:52 Blood Culture - Preliminary Blood Assessment and Plan Assessment: Patient is a 37M who is s/p ex-lap small bowel resection POD#12 with concern for postop abscess Plan: -CLD as tolerated -Continue TPN -IV abx -PRN pain and nausea control -Serial abdominal examinations -Patient remains stable and non-peritonitic. Will continue conservative man agement. Patient counseled that if worsening abdominal pain or hemodynamic instability will need emergent operative intervention Lane Mason MD General Surgery
[2023-11-04 09:07] LABS: African American GFR (CKD) >90 (>60 ml/min/1.73 sqM); Anion Gap 8 mmol/L; Blood Urea Nitrogen 8 mg/dL (9-20); Calcium 8.1 mg/dL (8.4-10.2); Carbon Dioxide 24 mmol/L (22-30); Chloride 107 mmol/L (98-107); Glucose 124 mg/dL (74-99); Magnesium 1.9 mg/dL (1.6-2.3); Non-African American GFR(CKD) >90 (>60 ml/min/1.73 sqM); Phosphorus 4.6 mg/dL (2.5-4.5); Potassium 3.9 mmol/L (3.5-5.1); Sodium 139 mmol/L (137-145)
[2023-11-04] MEDS: 1: MVI, ADULT NO.4 WITH VIT K 10 ML, TRACE (CONC-1ML/DOSE) 1 ML, SODIUM ACETATE 30 MEQ, IV SCH (12:43)
--- NOTE | 2023-11-04 15:29 | P.PN ---
Subjective Progress Note Date: 11/04/23 CHIEF COMPLAINT: Perforated diverticulitis HISTORY OF PRESENT ILLNESS: The patient is a 37-year-old male initially mated for abdominal pain and small bowel inflammation. Patient is status post small bowel resection for small bowel inflammation. During hospitalization, patient developed increased abdominal pain from a new perforated diverticulitis. He was treated conservatively with IV antibiotics. "I feel much better." He received his PICC line. He is on scheduled IV antibiotics. ROS: No reports of nausea and vomiting. No fevers or chills. No new chest pain. No productive sputum PHYSICAL EXAM: VITAL SIGNS: Reviewed CONSTITUTIONAL: Well developed and in no acute distress. EYES: Conjuctivae without sclera icterus. Extraocular movements grossly intact. HEAD, EARS, NOSE, THROAT: Moist buccal mucosa. Head is atraumatic, normocephalic. Hears conversational speech. No nasal drainage. RESPIRATORY: Non-labored respirations and equal bilateral excursions. CARDIOVASCULAR: Palpable 2+ radial pulses. ABDOMEN: No peritonitis. MUSCULOSKELETAL: No gross deformity of the lower extremities noted. No clubbing. No cyanosis. SKIN: Good skin turgor. Well perfused. NEUROLOGIC: Cranial nerves II through XII grossly intact. No focal or lateralizing signs. PSYCH: Appropriate affect. Alert and oriented to person, place and time. CLINICAL LABS: Reviewed. WBC normal. ASSESSMENT: 1. Small bowel inflammation status post resection 2. Perforated diverticulitis with pelvic abscess 3. Obesity due to excess calories, BMI 37.3 4. History of alcohol abuse disorder PLAN: 1. Clinically he has done extremely well in the past week of observation for perforated diverticulitis 2. Stable for discharge once cleared from admitting provider. 3. Will advance to full liquid diet Objective - Vital Signs Vital signs: Vital Signs Temp 98.5 F 11/04/23 14:15 Pulse 78 11/04/23 14:15 Resp 18 11/04/23 14:15 BP 134/82 11/04/23 14:15 Pulse Ox 96 11/04/23 14:15 FiO2 Intake & Output 11/03/23 11/04/23 11/04/23 18:59 06:59 18:59 Intake Total 1016 Output Total 150 Balance 866 Intake: Intake, IV Titration 1016 Amount Mvi, Adult No.4 with Vit 1016 K 10 ml Trace (Conc-1Ml/ Dose) 1 ml Potassium Acetate 10 meq In Amino Acid 5%-D20w+Lytes*E* 1, 000 ml @ 93 mls/hr IV .BY [facility] Rx#: [id number] Output: Urine 150 Other: # Voids 3 2 5 # Bowel Movements 2 2 - Labs CBC & Chem 7: 11/03/23 05:53 11/04/23 08:09 Labs: Abnormal Lab Results - Last 24 Hours (Table) 11/04/23 Range/Units 08:09 BUN 8 L (9-20) mg/dL Creatinine 0.63 L (0.66-1.25) mg/dL Glucose 124 H (74-99) mg/dL Calcium 8.1 L (8.4-10.2) mg/dL Phosphorus 4.6 H (2.5-4.5) mg/dL
--- NOTE | 2023-11-04 18:41 | P.PN ---
Subjective Progress Note Date: 11/03/23 Principal diagnosis: Reason for follow-up is sepsis abdominal source Patient is a 37-year-old male with a past medical history significant for chronic back pain presenting to the hospital for evaluation of abdominal pain and fever, CT abdominal pelvis suspicious for internal hernia possible obstruction s/p laparotomy small bowel resection. On today's evaluation that is 11/03/2023,the patient did have a low-grade fever 100 F last night however the patient is afebrile since then the patient is breathing comfortably denies any chest pain shortness of breath or cough abdominal pain slightly decreased intensity no nausea vomiting did have a bowel movement. Patient white count is 8.94, creatinine 0.66 Objective - Vital Signs Vital signs: Vital Signs Temp 98.2 F 11/03/23 07:02 Pulse 70 11/03/23 07:02 Resp 18 11/03/23 07:02 BP 116/70 11/03/23 07:02 Pulse Ox 94 L 11/03/23 07:02 FiO2 Intake & Output 11/02/23 11/03/23 11/03/23 18:59 06:59 18:59 Intake Total 1000 2308 Balance 1000 2308 Weight 117.934 kg Intake: Intake, IV Titration 1000 2308 Amount Fat Emulsion 20% 250 ml @ 250 20.833 mls/hr IV MoFr@ 1900 [facility] Rx#:[id number] Mvi, Adult No.4 with Vit 558 K 10 ml Trace (Conc-1Ml/ Dose) 1 ml In Amino Acid 5%-D20w+Lytes*E* 1,000 ml @ 93 mls/hr IV .BY DURATION [facility] Rx#: [id number] Piperacillin-Tazobactam 3 100 .375 gm In Sodium Chloride 0.9% 100 ml @ 25 mls/hr IVPB Q8HR [facility] Rx# :[id number] Sodium Chloride 0.9% 1, 900 1500 000 ml @ 125 mls/hr IV . Q8H [facility] Rx#:[id number] Other: Voiding Method Toilet Urinal # Voids 1 4 1 - Exam GENERAL DESCRIPTION: Middle-age male up in the room in no distress RESPIRATORY SYSTEM: Unlabored breathing , decreased breath sounds at bases HEART: S1 S2 regular rate and rhythm , ABDOMEN: Soft , mild distention and tenderness EXTREMITIES: No edema feet - Labs CBC & Chem 7: 11/03/23 05:53 11/04/23 08:09 Labs: Abnormal Lab Results - Last 24 Hours (Table) 11/03/23 11/03/23 Range/Units 05:53 05:53 RBC 3.44 L (4.40-5.60) X 10*6/uL Hgb 8.7 L (13.0-17.0) g/dL Hct 27.9 L (39.6-50.0) % MCH 25.3 L (27.0-32.0) pg MCHC 31.2 L (32.0-37.0) g/dL RDW 15.9 H (11.5-14.5) % Immature Gran # 0.11 H (0.00-0.04) X 10*3/uL Lymphocytes # 0.74 L (0.90-5.00) X 10*3/uL Eosinophils # 0 L (0.04-0.35) X 10*3/uL NRBC/100 WBC Diff 0.03 H (0.00-0.01) X 10*3/uL BUN 6 L (9-20) mg/dL Glucose 167 H (74-99) mg/dL Calcium 8.2 L (8.4-10.2) mg/dL Microbiology - Last 24 Hours (Table) 10/30/23 17:52 Blood Culture - Preliminary Blood Assessment and Plan (1) Peritonitis Current Visit: Yes Status: Acute Code(s): K65.9 - PERITONITIS, UNSPECIFIED SNOMED Code(s): 87560650 (2) Perforation of sigmoid colon due to diverticulitis Current Visit: Yes Status: Acute Code(s): K57.20 - DVTRCLI OF LG INT W PERFORATION AND ABSCESS W/O BLEEDING SNOMED Code(s): 2545234391426043 Plan: 1patient presented hospital with sepsis in this patient who did have a fever tachycardia elevated white count presented with abdominal pain and concerning for internal herniation and possible small bowel inflammation/ischemia s/p resection with no clear documentation of any perforation, will need to cover for the enteric gram-negative aerobes and anaerobes to the likely pathogen 2-patient did have new fever and also complaining of more abdominal pain for the patient did have repeat CT abdomen pelvis concerning for diverticulitis and abscess with initial improvement in his fever pattern however the patient spike a fever again on 10/30/2023 for his patient did have repeat CT abdominal pelvis which was reviewed with radiologist Dr. Loja, abscess cavity is about the same no worsening abscess was noticed there is features of diverticulitis unfortunately it cannot be drained CT-guided, patient care has been discussed in detail with the surgeon who have discussed option of surgery versus observation apparently the patient has opted for observation at this point and no surgical intervention 3 patient is running a low-grade fever slightly concerning however his white count has been normal and patient mention improvement in his abdominal pain continue Zosyn and monitor clinical course closely Dictation was produced using [employer] dictation software. please excuse any grammatical, word or spelling errors. Time with Patient: Less than 30
--- NOTE | 2023-11-04 18:42 | P.PN ---
Subjective Progress Note Date: 11/04/23 Principal diagnosis: Reason for follow-up is sepsis abdominal source Patient is a 37-year-old male with a past medical history significant for chronic back pain presenting to the hospital for evaluation of abdominal pain and fever, CT abdominal pelvis suspicious for internal hernia possible obstruction s/p laparotomy small bowel resection. On today's evaluation that is 11/04/2023,the patient did spike a fever 100.4 F at 1 AM patient is afebrile since then patient denies having any chest pain or shortness of breath or cough mention abdominal pain slightly decreased in intensity nausea but no vomiting did have a bowel movement. No CBC was done today creatinine 0.63 Objective - Vital Signs Vital signs: Vital Signs Temp 99.3 F 11/04/23 07:54 Pulse 70 11/04/23 07:54 Resp 19 11/04/23 07:54 BP 143/87 11/04/23 07:54 Pulse Ox 94 L 11/04/23 07:54 FiO2 Intake & Output 11/03/23 11/04/23 11/04/23 18:59 06:59 18:59 Intake Total 1016 Output Total 150 Balance 866 Intake: Intake, IV Titration 1016 Amount Mvi, Adult No.4 with Vit 1016 K 10 ml Trace (Conc-1Ml/ Dose) 1 ml Potassium Acetate 10 meq In Amino Acid 5%-D20w+Lytes*E* 1, 000 ml @ 93 mls/hr IV .BY DURATION [facility] Rx#: [id number] Output: Urine 150 Other: # Voids 3 2 5 # Bowel Movements 2 2 - Exam GENERAL DESCRIPTION: Middle-age male up in the room in no distress RESPIRATORY SYSTEM: Unlabored breathing , decreased breath sounds at bases HEART: S1 S2 regular rate and rhythm , ABDOMEN: Soft , mild distention and tenderness EXTREMITIES: No edema feet - Labs CBC & Chem 7: 11/03/23 05:53 11/04/23 08:09 Labs: Abnormal Lab Results - Last 24 Hours (Table) 11/04/23 Range/Units 08:09 BUN 8 L (9-20) mg/dL Creatinine 0.63 L (0.66-1.25) mg/dL Glucose 124 H (74-99) mg/dL Calcium 8.1 L (8.4-10.2) mg/dL Phosphorus 4.6 H (2.5-4.5) mg/dL Assessment and Plan (1) Peritonitis Current Visit: Yes Status: Acute Code(s): K65.9 - PERITONITIS, UNSPECIFIED SNOMED Code(s): 63887706 (2) Perforation of sigmoid colon due to diverticulitis Current Visit: Yes Status: Acute Code(s): K57.20 - DVTRCLI OF LG INT W PERFORATION AND ABSCESS W/O BLEEDING SNOMED Code(s): 4884775144533448 Plan: 1patient presented hospital with sepsis in this patient who did have a fever tachycardia elevated white count presented with abdominal pain and concerning for internal herniation and possible small bowel inflammation/ischemia s/p resection with no clear documentation of any perforation, will need to cover for the enteric gram-negative aerobes and anaerobes to the likely pathogen 2-patient did have new fever and also complaining of more abdominal pain for the patient did have repeat CT abdomen pelvis concerning for diverticulitis and abscess with initial improvement in his fever pattern however the patient spike a fever again on 10/30/2023 for his patient did have repeat CT abdominal pelvis which was reviewed with radiologist Dr. Loja, abscess cavity is about the same no worsening abscess was noticed there is features of diverticulitis unfortunately it cannot be drained CT-guided, patient care has been discussed in detail with the surgeon who have discussed option of surgery versus observation apparently the patient has opted for observation at this point and no surgical intervention 3 patient is running a low-grade fever slightly concerning however his white count has been normal patient is currently covered with Zosyn and patient mention improvement in his abdominal pain may benefit from repeat CAT scan if any further fever Dictation was produced using [employer] dictation software. please excuse any grammatical, word or spelling errors. Time with Patient: Less than 30
[2023-11-05 09:56] LABS: African American GFR (CKD) >90 (>60 ml/min/1.73 sqM); Anion Gap 8 mmol/L; Blood Urea Nitrogen 9 mg/dL (9-20); Calcium 8.7 mg/dL (8.4-10.2); Carbon Dioxide 24 mmol/L (22-30); Chloride 107 mmol/L (98-107); Glucose 141 mg/dL (74-99); Magnesium 2.1 mg/dL (1.6-2.3); Non-African American GFR(CKD) >90 (>60 ml/min/1.73 sqM); Phosphorus 3.9 mg/dL (2.5-4.5); Potassium 4.2 mmol/L (3.5-5.1); Sodium 139 mmol/L (137-145)
[2023-11-05 10:16] LABS: Basophils % (A) 0 %; Eosinophils % (A) 0 %; HCT 32.9 % (39.0-53.0); HGB 10.2 gm/dL (13.0-17.5); Hypochromasia Slight; Lymphocytes # (A) 1.1 k/uL (1.0-4.8); Lymphocytes % (A) 11 %; MCH 25.7 pg (25.0-35.0); MCHC 30.9 g/dL (31.0-37.0); Mean Platelet Volume 9.3; Monocytes # (A) 0.6 k/uL (0-1.0); Monocytes % (A) 6 %; Neutrophils # (A) 8.3 k/uL (1.3-7.7); Neutrophils % (A) 80 %; Platelet Count 339 k/uL (150-450); RBC 3.97 m/uL (4.30-5.90); RDW 14.9 % (11.5-15.5); WBC 10.3 k/uL (3.8-10.6)
--- NOTE | 2023-11-05 13:57 | P.PN ---
Subjective November 05, 2023: Patient reevaluated today he has a small bowel resection for small bowel inflammation and then developed a perforated diverticulum. He currently has a PICC line. Medically stable without complaint. Vital signs remain normal Tmax is 100.4 laboratory studies are essentially normal hemoglobin 10.2 no significant white count but there is a small left shift in neutrophils chemistries are normal. He is being followed by infectious disease family medicine and he is admitted to surgery. Objective - Vital Signs Vital signs: Vital Signs Temp 98.4 F 11/05/23 08:00 Pulse 69 11/05/23 08:00 Resp 18 11/05/23 08:00 BP 134/82 11/05/23 08:00 Pulse Ox 90 L 11/05/23 08:00 FiO2 Intake & Output 11/04/23 11/05/23 11/05/23 18:59 06:59 18:59 Weight 117.934 kg Other: Voiding Method Toilet Urinal # Voids 3 2 # Bowel Movements 1 - Exam General: The patient is awake and alert, in no distress, is resting comfortably in the chair in his hospital room Neck: The neck is supple, there is no thyromegaly, lymphadenopathy, tenderness or JVD. Cardiovascular: S1S2 is normal, There is a regular rate and rhythm. No murmur, rub or gallop is appreciated. Respiratory: Lungs show minimal crackles to the right base. Respirations are non-labored, breath sounds are equal. Gastrointestinal: Soft, non-distended, abdomen no tenderness is palpated at this time, incision sites are clean dry and intact, Musculoskeletal: Normal ROM, no tenderness, There is no pedal edema. There is no calf tenderness or swelling. No cords were appreciated. Neurological: CN II-XII intact, there are no obvious motor or sensory deficits. Coordination appears grossly intact. Speech is normal. Skin: Skin is warm and dry and no rashes or lesions are noted. - Labs CBC & Chem 7: 11/05/23 08:59 11/05/23 08:59 Labs: Abnormal Lab Results - Last 24 Hours (Table) 11/05/23 11/05/23 Range/Units 08:59 08:59 RBC 3.97 L (4.30-5.90) m/uL Hgb 10.2 L (13.0-17.5) gm/dL Hct 32.9 L (39.0-53.0) % MCHC 30.9 L (31.0-37.0) g/dL Neutrophils # 8.3 H (1.3-7.7) k/uL Glucose 141 H (74-99) mg/dL Microbiology - Last 24 Hours (Table) 10/30/23 17:52 Blood Culture - Final Blood Assessment and Plan Plan: Sepsis/peritonitis: status post exploratory laparotomy with small bowel resection.and being managed by surgery Perforated diverticulum being managed conservatively: Infectious disease monitoring H/O Guillian Norman syndrome Atelectasis: Incentive spirometer was encouraged. Gout: He remains on allopurinol Mood disorder: He remains on Escitalopram Chronic back pain Osteoarthritis Morbid obesity, BMI 37.3 Alcohol use Nicotine dependence, chews, counseled on cessation, has nicotine patch Plan: Most likely home in the next 24 hours once insurance issues are sorted out he does have a PICC line and will receive IV antibiotics once discharged for 2 weeks per infectious disease.
--- NOTE | 2023-11-05 15:46 | P.PN ---
Subjective Progress Note Date: 11/05/23 CHIEF COMPLAINT: Abdominal pain HISTORY OF PRESENT ILLNESS: Patient is postop day #14 status post exploratory laparotomy with small bowel resection for small bowel inflammation. Patient reports his pain is controlled and improving. He is not requiring IV pain medication. Denies any nausea or vomiting. He is having bowel movements. Afebrile. WBC 10.3 PHYSICAL EXAM: VITAL SIGNS: Reviewed. GENERAL: upset and crying because of no insurance and family issues ABDOMEN: Soft. nondistended. Incision site clean and dry. Small area of dehiscence is smaller in size. No drainage noted. Mild tenderness right side of abdomen ASSESSMENT: 1. Small bowel enteritis status post exploratory laparotomy with small bowel resection 2. Diverticular abscess in the mid pelvis noted on CT not drainable per interventional radiology service PLAN: -Continue Full liquids -medical affairs manager is working on arranging outpatient IV antibiotics. Unfortunately patient no longer has insurance due to family social issues. -Courage patient to ambulate -Encourage patient to use incentive spirometer -GI prophylaxis Protonix and DVT prophylaxis Lovenox Physician Bead Supervisor note has been reviewed by physician. Signing provider agrees with the documented findings, assessment, and plan of care. Objective - Vital Signs Vital signs: Vital Signs Temp 98.3 F 11/05/23 14:00 Pulse 62 11/05/23 14:00 Resp 18 11/05/23 14:00 BP 153/102 11/05/23 14:00 Pulse Ox 91 L 11/05/23 14:00 FiO2 Intake & Output 11/04/23 11/05/23 11/05/23 18:59 06:59 18:59 Weight 117.934 kg Other: Voiding Method Toilet Urinal # Voids 3 2 # Bowel Movements 1 - Labs CBC & Chem 7: 11/05/23 08:59 11/05/23 08:59 Labs: Abnormal Lab Results - Last 24 Hours (Table) 11/05/23 11/05/23 Range/Units 08:59 08:59 RBC 3.97 L (4.30-5.90) m/uL Hgb 10.2 L (13.0-17.5) gm/dL Hct 32.9 L (39.0-53.0) % MCHC 30.9 L (31.0-37.0) g/dL Neutrophils # 8.3 H (1.3-7.7) k/uL Glucose 141 H (74-99) mg/dL Microbiology - Last 24 Hours (Table) 10/30/23 17:52 Blood Culture - Final Blood
--- NOTE | 2023-11-05 21:42 | P.PN ---
Subjective Progress Note Date: 11/05/23 Principal diagnosis: Reason for follow-up is sepsis abdominal source Patient is a 37-year-old male with a past medical history significant for chronic back pain presenting to the hospital for evaluation of abdominal pain and fever, CT abdominal pelvis suspicious for internal hernia possible obstruction s/p laparotomy small bowel resection. On today's evaluation that is 11/05/2023, the patient did have resolution of his fever and is afebrile this morning the patient is breathing comfortably denies any chest pain shortness of breath or cough abdominal pain has improved no nausea vomiting or diarrhea patient complaining of going through a lot of emotional stress. Patient white count is 10.3, creatinine 0.67 blood culture has been negative Objective - Vital Signs Vital signs: Vital Signs Temp 98.4 F 11/05/23 08:00 Pulse 69 11/05/23 08:00 Resp 18 11/05/23 08:00 BP 134/82 11/05/23 08:00 Pulse Ox 90 L 11/05/23 08:00 FiO2 Intake & Output 11/04/23 11/05/23 11/05/23 18:59 06:59 18:59 Other: Voiding Method Toilet Urinal # Voids 3 2 # Bowel Movements 1 - Exam GENERAL DESCRIPTION: Middle-age male up in the room in no distress RESPIRATORY SYSTEM: Unlabored breathing , decreased breath sounds at bases HEART: S1 S2 regular rate and rhythm , ABDOMEN: Soft , mild distention and tenderness EXTREMITIES: No edema feet - Labs CBC & Chem 7: 11/05/23 08:59 11/05/23 08:59 Labs: Abnormal Lab Results - Last 24 Hours (Table) 11/05/23 11/05/23 Range/Units 08:59 08:59 RBC 3.97 L (4.30-5.90) m/uL Hgb 10.2 L (13.0-17.5) gm/dL Hct 32.9 L (39.0-53.0) % MCHC 30.9 L (31.0-37.0) g/dL Neutrophils # 8.3 H (1.3-7.7) k/uL Glucose 141 H (74-99) mg/dL Microbiology - Last 24 Hours (Table) 10/30/23 17:52 Blood Culture - Final Blood Assessment and Plan (1) Peritonitis Current Visit: Yes Status: Acute Code(s): K65.9 - PERITONITIS, UNSPECIFIED SNOMED Code(s): 62785333 (2) Perforation of sigmoid colon due to diverticulitis Current Visit: Yes Status: Acute Code(s): K57.20 - DVTRCLI OF LG INT W PERFORATION AND ABSCESS W/O BLEEDING SNOMED Code(s): 4895621197164426 Plan: 1patient presented hospital with sepsis in this patient who did have a fever tachycardia elevated white count presented with abdominal pain and concerning for internal herniation and possible small bowel inflammation/ischemia s/p resection with no clear documentation of any perforation, will need to cover for the enteric gram-negative aerobes and anaerobes to the likely pathogen 2-patient did have new fever and also complaining of more abdominal pain for the patient did have repeat CT abdomen pelvis concerning for diverticulitis and abscess with initial improvement in his fever pattern however the patient spike a fever again on 10/30/2023 for his patient did have repeat CT abdominal pelvis which was reviewed with radiologist Dr. Loja, abscess cavity is about the same no worsening abscess was noticed there is features of diverticulitis unfortunately it cannot be drained CT-guided, patient care has been discussed in detail with the surgeon who have discussed option of surgery versus observation apparently the patient has opted for observation at this point and no surgical intervention 3 patient did have resolution of his fever white count has been normal plan is for a 2-week course of IV Zosyn and repeating a CT abdominal pelvis before completion of his IV antibiotic therapy this has been discussed in detail with the patient who agreed with the plan prescription provided to the community case manager Dictation was produced using [employer] dictation software. please excuse any grammatical, word or spelling errors. Time with Patient: Less than 30
[2023-11-06] MEDS: PIPERACILLIN-TAZOBACTAM 3.375 GM in SODIUM CHLORIDE 0.9% 100 ML IVPB SCH (07:46)
[2023-11-06 09:07] LABS: African American GFR (CKD) >90 (>60 ml/min/1.73 sqM); Anion Gap 6 mmol/L; Blood Urea Nitrogen 9 mg/dL (9-20); Calcium 9.2 mg/dL (8.4-10.2); Carbon Dioxide 25 mmol/L (22-30); Chloride 108 mmol/L (98-107); Glucose 102 mg/dL (74-99); Non-African American GFR(CKD) >90 (>60 ml/min/1.73 sqM); Phosphorus 4.8 mg/dL (2.5-4.5); Potassium 4.4 mmol/L (3.5-5.1); Sodium 139 mmol/L (137-145)
--- NOTE | 2023-11-06 13:24 | P.DS ---
Providers Date of admission: 10/22/23 14:11 Expected date of discharge: 11/06/23 Attending physician: David Santillan Consults: 10/22/23 19:06 Consult Physician Routine Consulting Provider: Shauna Sears Consult Reason/Comments: INFECTIOUS DISEASE CONSULT Do you want consulting provider notified?: Yes 10/23/23 09:20 Consult Physician Routine Consulting Provider: Van Crawford Jr Consult Reason/Comments: medical management Do you want consulting provider notified?: Yes Primary care physician: Van Crawford Hospital Course: Discharge diagnosis 1. Small bowel enteritis status post exploratory laparotomy with small bowel resection 2. Diverticular abscess in the mid pelvis not drainable per interventional radiology service Hospital course This is a 37-year-old male who presented with abdominal pain across the lower abdomen. He had CT scan abdomen pelvis concerns for possible internal hernia. Patient was taken to the OR and is status post exploratory laparotomy with small bowel resection for small bowel enteritis. Patient has been doing well and then developed fevers. And a repeat CT scan was completed. Findings per surgeon were likely due to and abscess from diverticulitis. Patient was maintained on IV antibiotics. Surgeon and patient had discussed about going back to the OR. And patient wanted to continue medical management approach with IV antibiotics. Patient has improved. Abdominal pain has improved. He is tolerating diet. He is having bowel movements. He is afebrile. White count is normal. Patient will be discharged home with IV antibiotics per infectious disease recommendations. Patient is ambulating. He is afebrile. He is stable for discharge. Please refer to chart for any further details. Physician Hog Counter note has been reviewed by physician. Signing provider agrees with the documented findings, assessment, and plan of care. Patient Condition at Discharge: Stable Plan - Discharge Summary Discharge Rx Participant: Yes New Discharge Prescriptions: New Ibuprofen [Motrin] 600 mg PO Q8HR PRN #30 tab PRN Reason: Pain Acetaminophen Tab [Tylenol Tab] 650 mg PO Q4H PRN #30 tablet PRN Reason: Pain Continue Escitalopram [Lexapro] 10 mg PO HS Lumateperone Tosylate [Caplyta] 42 mg PO HS hydrOXYzine pamoate [Vistaril] 50 mg PO HS PRN PRN Reason: Insomnia allopurinoL [Zyloprim] 100 mg PO HS Losartan Potassium [Cozaar] 25 mg PO HS Discharge Medication List Escitalopram [Lexapro] 10 mg PO HS 12/27/21 [History] Losartan Potassium [Cozaar] 25 mg PO HS 12/27/21 [History] allopurinoL [Zyloprim] 100 mg PO HS 12/27/21 [History] hydrOXYzine pamoate [Vistaril] 50 mg PO HS PRN 12/27/21 [History] Lumateperone Tosylate [Caplyta] 42 mg PO HS 10/22/23 [History] Acetaminophen Tab [Tylenol Tab] 650 mg PO Q4H PRN #30 tablet 11/06/23 [Rx] Ibuprofen [Motrin] 600 mg PO Q8HR PRN #30 tab 11/06/23 [Rx] Follow up Appointment(s)/Referral(s): Van Crawford Jr, DO [Primary Care Provider] - 1-2 days Infusion Services,[facility] [REFERRING] - As Needed [facility] Visiting Nurse, [NON-STAFF] - As Needed David Santillan MD [STAFF PHYSICIAN] - 1 Week Activity/Diet/Wound Care/Special Instructions: IV outpatient antibiotics per infectious disease Continue Tylenol and Motrin as needed for pain No lifting over 10 pounds You may shower. No soaking or tub baths for 2 weeks Very light activity until you are reevaluated at your follow up appointment with your surgeon Stay on a full liquid diet for the next 2 weeks Discharge Disposition: HOME WITH HOME HEALTH SERVICES
[2023-11-06] MEDS ORDERED: ERTAPENEM 1 GM in SODIUM CHLORIDE 0.9% 50 ML IVPB SCH (15:30)
[2023-11-06 16:45] VITALS: BP 142/89; PULSE 73; RESP 20; TEMP 97.8
--- NOTE | 2023-11-06 19:10 | P.PN ---
Subjective Progress Note Date: 11/06/23 - History of Present Illness10/23/23 This is a 37-year-old morbidly obese gentleman with past medical history significant for chronic back pain, Guillian Norman syndrome, osteoarthritis, nicotine dependence-chews, alcohol use and multiple other medical issues status post exploratory laparotomy, small bowel resection. (Abdominal CT reported no dilated bowel suggesting obstruction, hairpin loops of bowel in the mid to central lower quadrant worrisome for internal hernia or volvulus.) On admission, tachycardic, Tmax 101.6, WBC returned to normal. Maintained on Zosyn, no blood cultures.hemoglobin 12.3, platelets 246. Electrolytes within normal limits, renal function stable with creatinine decreased to 1.1, from 1.3. Blood sugars controlled. UA negative. Serum alcohol less than 10. ID consult in place. 10/24/2023 maintained on IV Zosyn, Tmax 99.9. Tolerating clear liquids, denies nausea vomiting or diarrhea. Passing flatus. Positive pain, improving on Dilaudid IV push-has not yet attempted the [place]. 10/25/2023 hemoglobin decreased to 10.1, platelets 225, renal function stable. Maintaining O2 sats in the low 90s on room air. Pathology reporting small bowel tissue with active enteritis, submucosal edema, serous fibrous adhesions and abundant acute serositis. Margins benign and viable. Pain better controlled. Tolerating full liquids, positive bowel movement. Afebrile, Tmax 99.2, WBC 5.81. 11/06/2023 maintained on IV antibiotics as per infectious disease via PICC line. Afebrile, Tmax 99.3. Renal function stable. Pain improving, controlled. Positive bowel movements. Denies nausea or vomiting. Discharge planning in progress. Objective - Vital Signs Vital signs: Vital Signs Temp 97.8 F 11/06/23 13:49 Pulse 73 11/06/23 13:49 Resp 20 11/06/23 13:49 BP 142/89 11/06/23 13:49 Pulse Ox 96 11/06/23 13:49 FiO2 Intake & Output 11/06/23 11/06/23 11/07/23 06:59 18:59 06:59 Intake Total 900 900 Balance 900 900 Intake: Oral 900 900 Other: Voiding Method Toilet Urinal # Voids 4 - Exam PHYSICAL EXAM: VITAL SIGNS: [As above] GENERAL: Obese, alert and oriented x 3, NAD HEENT: Normocephalic conjunctivae normal. eyes normal. NECK: Supple, no JVD. CARDIOVASCULAR: S1, S2 regular.. No murmur RESPIRATION: Unlabored, equal air entry ,breath sounds diminished in the bases. ABDOMEN: Soft, status post surgery, binder. Minimal right-sided tenderness. LEGS: No edema. no swelling NERVOUS SYSTEM: Cranial N 2-12 grossly normal. No focal deficits. Skin: warm and dry, no rashes noted - Labs CBC & Chem 7: 11/05/23 08:59 11/06/23 08:32 Labs: Abnormal Lab Results - Last 24 Hours (Table) 11/06/23 Range/Units 08:32 Chloride 108 H (98-107) mmol/L Glucose 102 H (74-99) mg/dL Phosphorus 4.8 H (2.5-4.5) mg/dL Assessment and Plan Assessment: Sepsis , peritonitis secondary to abdominal pain , CT reported internal hernia, status post exploratory laparotomy with small bowel resection. Pathology reporting small bowel tissue with active enteritis, submucosal edema, serous fibrous adhesions and abundant acute serositis. Margins benign and viable. Perforated diverticulum, conservative management, ID following Atelectasis Guillian Norman syndrome Chronic back pain Osteoarthritis Morbid obesity, BMI 37.3 Alcohol use Nicotine dependence, chews, counseled on cessation Plan: Continue on current medication regimen ,monitoring and symptomatic treatment. DC antibiotics as per ID. Discharge planning in progress as per general surgery.case management arranging IV antibiotics via PICC line as patient has no insurance. aggressive pulmonary toileting with incentive spirometer reinforced. Smoking sensation reinforced, nicotine patch ordered for DC. follow-up with PCP in 1 week. The impression and plan of care has been dictated as directed. : I performed a history and examination of this patient, discussed the same with the dictator. I agree with the dictator's note ,documented as a scribe. Any additional findings or plans will be noted.
== END 2023-11-06 15:09 | disposition home health service (06) | DRG 710 ==
LOC: EC 08:10 → 4SSUR 14:11
PROVIDERS: ADMIT Surgery; ATTEND Surgery
PROC: 0DB80ZZ Excision of Small Intestine, Open Approach (ICD-10-PCS; principal; 2023-10-22 15:15)
PROC: 02HV33Z Insertion of Infusion Device into Superior Vena Cava, Percutaneous Approach (ICD-10-PCS; 2023-11-01)
DX: A41.9 Sepsis, unspecified organism (principal); K57.20 Diverticulitis of large intestine with perforation and abscess without bleeding; K65.9 Peritonitis, unspecified; E66.01 Morbid (severe) obesity due to excess calories; Z71.6 Tobacco abuse counseling; F17.220 Nicotine dependence, chewing tobacco, uncomplicated; F41.9 Anxiety disorder, unspecified; K46.9 Unspecified abdominal hernia without obstruction or gangrene; K52.9 Noninfective gastroenteritis and colitis, unspecified; G89.29 Other chronic pain; F10.11 Alcohol abuse, in remission; J98.11 Atelectasis; K56.50 Intestinal adhesions [bands], unspecified as to partial versus complete obstruction; M19.90 Unspecified osteoarthritis, unspecified site; M54.9 Dorsalgia, unspecified; Z68.37 Body mass index [BMI] 37.0-37.9, adult; Z86.69 Personal history of other diseases of the nervous system and sense organs; Z28.310 Unvaccinated for COVID-19; Z28.21 Immunization not carried out because of patient refusal; Z88.5 Allergy status to narcotic agent
CPT/HCPCS: 36415; 36573; 71046; 74177; 80048; 80053; 80320; 81003; 82330; 83605; 83690; 83735; 84100; 84478; 85025; 86140; 87040; 88307; 96361; 96374; 96375; 96376; 99285

== ENCOUNTER → 2023-11-19 | Outpatient (CLI) | payer OTHER ==
[2023-11-19 12:05] LABS: African American GFR (CKD) >90 (>60 ml/min/1.73 sqM); Blood Urea Nitrogen 8 mg/dL (9-20); Non-African American GFR(CKD) >90 (>60 ml/min/1.73 sqM)
--- NOTE | 2023-11-21 14:46 | CT ---
EXAMINATION TYPE: CT abdomen pelvis w con CT DLP: 1762.10 mGycm, Automated exposure control for dose reduction was used. DATE OF EXAM: 11/19/2023 1:14 PM COMPARISON: CT abdomen pelvis most recent from CLINICAL INDICATION:Male, 37 years old with history of K57.20 DVTRCLI OF LG INT W PERFORATION AND ABS CESS; intra abdominal abscess TECHNIQUE: Axial CT abdomen pelvis w con;Sagittal and coronal reformats were created on a separate w orkstation. Contrast used:100ml mL of Isovue 300 with IV Contrast, (none if empty) Oral contrast used: with Oral Contrast (none if empty) FINDINGS: LOWER CHEST: Unremarkable ABDOMEN LIVER: Unremarkable GALLBLADDER AND BILE DUCTS: Unremarkable. PANCREAS: Unremarkable. SPLEEN: Unremarkable. ADRENAL GLANDS: Unremarkable. KIDNEYS AND URETERS: No evidence of hydronephrosis or renal calculus. The ureters are unremarkable. PELVIS BLADDER: Unremarkable REPRODUCTIVE: Unremarkable. ABDOMEN & PELVIS STOMACH AND BOWEL: No evidence of bowel obstruction. PERITONEUM/RETROPERITONEUM: Decrease in free air in the area of prior abscess formation. No organizin g fluid collection definitively visualized. Gaseous portion measuring 49 x 11 x 37 mm fingerlike exte nsion is tracks along the lateral to left upper quadrant bowel and colon appreciated on coronal imagi ng. Trace amount of oral contrast is seen extending from the colon to a tortuous cavity. Series 8 samantha ge 36. Scattered colonic diverticula. VASCULATURE: No evidence of aortic aneurysm. MUSCULOSKELETAL: No acute osseous abnormalities LYMPH NODES: No gross evidence for lymphadenopathy. SOFT TISSUE/ABDOMINAL WALL: Post surgical changes anterior abdominal wall present. IMPRESSION: 1. Overall decrease in abdominal fluid, no appreciable fluid. Is also decrease in pneumoperitoneum f rom prior exam. There remains a pocket of gas with fingerlike extensions interdigitating the mesenter y extending toward small bowel and colon likely representing early fistula formation. 2. Scattered colonic diverticulosis. 3. Postsurgical changes anterior abdominal wall.
== END | disposition home or self-care (01) ==
LOC: RADCTMAIN 11:17
PROVIDERS: ATTEND Internal Medicine Infectious Disease
DX: K57.30 Diverticulosis of large intestine without perforation or abscess without bleeding (principal); K57.20 Diverticulitis of large intestine with perforation and abscess without bleeding; K65.1 Peritoneal abscess; Z98.890 Other specified postprocedural states
CPT/HCPCS: 82565; 84520; 74177; 36415; Q9967

== ENCOUNTER 2024-02-28 06:29 | Inpatient (IN) | payer OTHER ==
--- NOTE | 2024-02-28 07:09 | ED ---
Abdominal Pain HPI - General Chief Complaint: Abdominal Pain Stated Complaint: ABD Pain Time Seen by Provider: 02/28/24 06:45 Source: patient, RN notes reviewed Mode of arrival: ambulatory Limitations: no limitations - History of Present Illness Initial Comments: 38-year-old male presents emergency department complaint of abdominal pain. Patient states that the pain has been increasing last several weeks. Patient had a bowel resection and after diverticulitis with abscess formation in September. He states he was on multiple weeks of IV antibiotics. Patient states that insurance was disrupted and states that he could no longer follow-up states of recently has had increasing weight gain, abdominal pain and distention. Patient is concerned that something is wrong. Change in bowel habits no dysuria no change in dietary habits. - Related Data Home Medications Medication Instructions Recorded Confirmed Losartan Potassium [Cozaar] 25 mg PO HS 12/27/21 02/28/24 Allergies Allergy/AdvReac Type Severity Reaction Status Date / Time meperidine [From Demerol] Allergy Rash/Hives Verified 02/28/24 06:50 morphine Allergy Rash/Hives Verified 02/28/24 06:50 Review of Systems ROS Statement: Those systems with pertinent positive or pertinent negative responses have been documented in the HPI. ROS Other: All systems not noted in ROS Statement are negative. Past Medical History Past Medical History: Osteoarthritis (OA) Additional Past Medical History / Comment(s): Guillian barre syndrome, chronic back pain History of Any Multi-Drug Resistant Organisms: None Reported Past Surgical History: Bowel Resection, Orthopedic Surgery Additional Past Surgical History / Comment(s): kidney polyps removed in left kidney, lt shoulder Past Anesthesia/Blood Transfusion Reactions: No Reported Reaction Past Psychological History: No Psychological Hx Reported Smoking Status: Never smoker Past Alcohol Use History: Occasional Past Drug Use History: None Reported General Exam Limitations: no limitations General appearance: alert, in no apparent distress Head exam: Present: atraumatic, normocephalic, normal inspection Eye exam: Present: normal appearance, PERRL, EOMI. Absent: scleral icterus, conjunctival injection, periorbital swelling Neck exam: Present: normal inspection, full ROM. Absent: tenderness, men ingismus, lymphadenopathy Respiratory exam: Present: normal lung sounds bilaterally. Absent: respiratory distress, wheezes, rales, rhonchi, stridor Cardiovascular Exam: Present: regular rate, normal rhythm, normal heart sounds. Absent: systolic murmur, diastolic murmur, rubs, gallop, clicks GI/Abdominal exam: Present: soft, tenderness, normal bowel sounds. Absent: distended, guarding, rebound, rigid Back exam: Absent: CVA tenderness (R), CVA tenderness (L) Neurological exam: Present: alert Course Vital Signs 02/28/24 02/28/24 06:45 07:20 Temperature 98.1 F 98.1 F Pulse Rate 72 74 Respiratory 18 16 Rate Blood Pressure 111/75 123/80 O2 Sat by Pulse 97 99 Oximetry Medical Decision Making - Medical Decision Making Was pt. sent in by a medical professional or institution (, PA, MANAGER OF NETWORK, urgent care, hospital, or fdc...) When possible be specific @ -No Did you speak to anyone other than the patient for history (EMS, parent, family, police, friend...)? What history was obtained from this source @ -No Did you review nursing and triage notes (agree or disagree)? Why? @ -I reviewed and agree with nursing and triage notes Were old charts reviewed (outside hosp., previous admission, EMS record, old EKG, old radiological studies, urgent care reports/EKG's, fdc records)? Report findings @ -Reviewed prior laboratory studies CBC comp and surgical records October 2023 Differential Diagnosis (chest pain, altered mental status, abdominal pain women, abdominal pain men, vaginal bleeding, weakness, fever, dyspnea, syncope, headac he, dizziness, GI bleed, back pain, seizure, CVA, palpatations, mental health, musculoskeletal)? @ -Differential Abdominal Pain Men: Appendicitis, cholecystitis, diverticulosis, ischemic bowel, pancreatitis, hepatitis, UTI, gastroenteritis, AAA, incarcerated hernia, bowel obstruction, constipation, inflammatory bowel, hepatitis, peptic ulcer disease, splenic infarction, perforated viscus, testicular torsion, this is not meant to be an all-inclusive list EKG interpreted by me (3pts min.). @ -None X-rays interpreted by me (1pt min.). @ -None done CT interpreted by me (1pt min.). @ -ET abdomen pelvis showing possible fistula, external luminal air noted U/S interpreted by me (1pt. min.). @ -None done What testing was considered but not performed or refused? (CT, X-rays, U/S, labs)? Why? @ -None What meds were considered but not given or refused? Why? @ -None Did you discuss the management of the patient with other professionals (professionals i.e. , PA, MANAGER OF NETWORK, lab, RT, psych nurse, licensed social worker, tourist camp attendant, teacher, horticultural technical officer, outsole caser)? Give summary @ -Dr. Santillan Was smoking cessation discussed for >3mins.? @ -No Was critical care preformed (if so, how long)? @ -No Were there social determinants of health that impacted care today? How? (Homelessness, low income, unemployed, alcoholism, drug addiction, transportation, low edu. Level, literacy, decrease access to med. care, detention, rehab)? @ -No Was there de-escalation of care discussed even if they declined (Discuss DNR or withdrawal of care, Hospice)? DNR status @ -No What co-morbidities impacted this encounter? (DM, HTN, Smoking, COPD, CAD, Cancer, CVA, ARF, Chemo, Hep., AIDS, mental health diagnosis, sleep apnea, mo rbid obesity)? @ -None Was patient admitted / discharged? Hospital course, mention meds given and ro loco, prescriptions, significant lab abnormalities, going to OR and other pertinent info. @ -Admitted patient was placed on IV antibiotics, IV fluids analgesics patient is admitted to the surgery with recommendations of oral contrast CT. Undiagnosed new problem with uncertain prognosis? @ -No Drug Therapy requiring intensive monitoring for toxicity (Heparin, Nitro, Insulin, Cardizem)? @ -No Were any procedures done? @ -No Diagnosis/symptom? @ -Diverticulitis, fistula Acute, or Chronic, or Acute on Chronic? @ -Acute Uncomplicated (without systemic symptoms) or Complicated (systemic symptoms)? @ -Complicated Side effects of treatment? @ -No Exacerbation, Progression, or Severe Exacerbation? @ -No Poses a threat to life or bodily function? How? (Chest pain, [place], [place], pneumonia, PE, COPD, DKA, ARF, appy, cholecystitis, CVA, Diverticulitis, Homicidal, Suicidal, threat to staff... and all critical care pts) @ -[Yes surgical risk, sepsis risk - Lab Data Result diagrams: 02/28/24 07:29 02/28/24 07:29 Lab Results 02/28/24 02/28/24 02/28/24 Range/Units 07:29 07: 07:29 WBC 4.4 (3.8-10.6) k/uL RBC 4.74 (4.30-5.90) m/uL Hgb 12.7 L (13.0-17.5) gm/dL Hct 38.3 L (39.0-53.0) % MCV 80.7 (80.0-100.0) fL MCH 26.8 (25.0-35.0) pg MCHC 33.2 (31.0-37.0) g/dL RDW 15.6 H (11.5-15.5) % Plt Count 193 (150-450) k/uL MPV 7.7 Neutrophils % 71 % Lymphocytes % 20 % Monocytes % 8 % Eosinophils % 0 % Basophils % 0 % Neutrophils # 3.1 (1.3-7.7) k/uL Lymphocytes # 0.9 L (1.0-4.8) k/uL Monocytes # 0.3 (0-1.0) k/uL Eosinophils # 0.0 (0-0.7) k/uL Basophils # 0.0 (0-0.2) k/uL Sodium 136 L (137-145) mmol/L Potassium 3.9 (3.5-5.1) mmol/L Chloride 107 (98-107) mmol/L Carbon Dioxide 25 (22-30) mmol/L Anion Gap 4 mmol/L BUN 10 (9-20) mg/dL Creatinine 0.85 (0.66-1.25) mg/dL Est GFR (CKD-EPI)AfAm >90 (>60 ml/min/1.73 sqM) Est GFR (CKD-EPI)NonAf >90 (>60 ml/min/1.73 sqM) Glucose 111 H (74-99) mg/dL Plasma Lactic Acid Chai 1.6 (0.7-2.0) mmol/L Calcium 8.7 (8.4-10.2) mg/dL Total Bilirubin 0.2 (0.2-1.3) mg/dL AST 25 (17-59) U/L ALT 19 (4-49) U/L Alkaline Phosphatase 63 (38-126) U/L Total Protein 6.2 L (6.3-8.2) g/dL Albumin 3.7 (3.5-5.0) g/dL Lipase 262 (23-300) U/L Disposition Clinical Impression: Entero-colonic fistula, Diverticulitis Disposition: ADMITTED IP TO THIS HOSP Referrals: Loc Lagos MD [Primary Care Provider] - 1-2 days Time of Disposition: 09:00
[2024-02-28 08:01] LABS: ALT 19 U/L (4-49); AST 25 U/L (17-59); African American GFR (CKD) >90 (>60 ml/min/1.73 sqM); Albumin 3.7 g/dL (3.5-5.0); Alkaline Phosphatase 63 U/L (38-126); Anion Gap 4 mmol/L; Blood Urea Nitrogen 10 mg/dL (9-20); Calcium 8.7 mg/dL (8.4-10.2); Carbon Dioxide 25 mmol/L (22-30); Chloride 107 mmol/L (98-107); Glucose 111 mg/dL (74-99); Lipase 262 U/L (23-300); Non-African American GFR(CKD) >90 (>60 ml/min/1.73 sqM); Potassium 3.9 mmol/L (3.5-5.1); Sodium 136 mmol/L (137-145); Total Bilirubin 0.2 mg/dL (0.2-1.3); Total Protein 6.2 g/dL (6.3-8.2)
[2024-02-28] MEDS: SODIUM CHLORIDE 0.9% 1,000 ML IV STA (08:07)
[2024-02-28 08:22] LABS: Basophils % (A) 0 %; Eosinophils % (A) 0 %; HCT 38.3 % (39.0-53.0); HGB 12.7 gm/dL (13.0-17.5); Lymphocytes # (A) 0.9 k/uL (1.0-4.8); Lymphocytes % (A) 20 %; MCH 26.8 pg (25.0-35.0); MCHC 33.2 g/dL (31.0-37.0); MCV 80.7 fL (80.0-100.0); Mean Platelet Volume 7.7; Monocytes # (A) 0.3 k/uL (0-1.0); Monocytes % (A) 8 %; Neutrophils # (A) 3.1 k/uL (1.3-7.7); Neutrophils % (A) 71 %; Platelet Count 193 k/uL (150-450); RBC 4.74 m/uL (4.30-5.90); RDW 15.6 % (11.5-15.5); WBC 4.4 k/uL (3.8-10.6)
--- NOTE | 2024-02-28 08:30 | CT ---
EXAMINATION TYPE: CT abdomen pelvis w con DATE OF EXAM: 02/28/2024 COMPARISON: 11/19/2023 HISTORY: 38-year-old male pain TECHNIQUE: Contiguous axial scanning of the abdomen and pelvis following administration of 100 ml Iso bridgette 300 IV contrast. Delayed images through the kidneys and coronal/sagittal reconstructions perform ed. CT DLP: 1548.7 mGycm Automated exposure control for dose reduction was used. FINDINGS: Heart normal size without pericardial effusion. Lung bases clear without pleural effusion. No focal liver lesion or biliary ductal dilatation. Portal venous system is patent. Gallbladder, adrenal glands, right kidney, spleen with anterior splenule, and pancreas within normal limits. Extrarenal pelvis left kidney unchanged. Some anterior abdominal wall scarring is demonstrated. A fatty umbilical hernia slightly larger at 2. 7 cm wide versus 1.5 cm, previously. No dilated small bowel, free fluid, or free air. No mesenteric or retroperitoneal lymphadenopathy. There is evidence of previous bowel surgery in the left mid abdomen. The small bowel appears patulous up to 3.4 cm, likely chronic postsurgical change. Mild stool burden. Sigmoid diverticulosis. There is minimal fat stranding in the lower mid abdomen at the site of previous inflammation. There appears to be persistent extraluminal air near possibly tra cking from the superior margin of the distal sigmoid colon to the right lateral margin of carin mid si gmoid colon. Refer to coronal images 43 through 49 and axial images 70 through 73. The previous wall thickening here has improved. Bladder partially distended. Prostate gland 4.9 cm wide, mildly enlarged. Otherwise, no abnormal flui d collection the pelvis or pelvic lymphadenopathy. Bones: No osseous destructive process. IMPRESSION: 1. PERSISTENT EXTRALUMINAL POCKET OF AIR IN THE LOWER MID ABDOMEN THAT SHOWS EXTENSION POSSIBLY FROM THE SUPERIOR WALL OF THE DISTAL SIGMOID COLON UP TO THE RIGHT LATERAL WALL OF THE MID SIGMOID COLON. SOME MINIMAL INFLAMMATION IS SUGGESTED HERE. CONSIDER MATURATION OF A COLO-COLONIC/ENTEROCOLONIC FIST ADELIA HERE. THE PREVIOUS COLONIC WALL THICKENING HAS RESOLVED. NO ARMIN ACUTE DIVERTICULITIS SEEN. 2. SMALL FATTY MEDICAL HERNIA IS SLIGHTLY LARGER AT 2.7 CM WIDE VERSUS 1.5 CM, PREVIOUSLY.
[2024-02-28] MEDS ORDERED: NALOXONE 0.4 MG/ML 1 ML VIAL IV PRN (09:00)
[2024-02-28] MEDS ORDERED: IOPAMIDOL CONTRAST (ORAL USE) VIAL PO PRN (09:02)
[2024-02-28] MEDS: PIPERACILLIN-TAZOBACTAM 3.375 GM in SODIUM CHLORIDE 0.9% 100 ML IVPB SCH (09:39)
[2024-02-28] MEDS: SODIUM CHLORIDE 0.9% 1,000 ML IV SCH (09:39)
--- NOTE | 2024-02-28 10:53 | CT ---
EXAMINATION TYPE: CT abdomen pelvis wo con DATE OF EXAM: 02/28/2024 HISTORY: abd pain, hx of bowel resection, polyps removed from left kidney, p CT DLP: 1121.4 mGycm. Automated Exposure Control for Dose Reduction was Utilized. TECHNIQUE: CT scan of the abdomen and pelvis is performed without oral or IV contrast. COMPARISON: 02/28/2024 FINDINGS: Heart normal size without pericardial effusion. Lung bases clear without pleural effusion. No focal liver lesion or biliary ductal dilatation. Gallbladder, adrenal glands, right kidney, spleen with anterior splenule, and pancreas within normal limits. Extrarenal pelvis left kidney unchanged. Some anterior abdominal wall scarring is demonstrate d. Spleen and a large measuring 14.7 cm. A fatty umbilical hernia slightly larger at 2.7 cm wide versus 1.5 cm, previously. No dilated small b owel, free fluid, or free air. No mesenteric or retroperitoneal lymphadenopathy. There is evidence of previous bowel surgery in the left mid abdomen. The small bowel appears patulous up to 3.4 cm, likely chronic postsurgical change. Mild stool burden. Sigmoid diverticulosis. There i s minimal fat stranding in the lower mid abdomen at the site of previous inflammation. Small pocket o f air questionably extraluminal stable.. The previous wall thickening stable. Bladder partially distended. Prostate gland 4.9 cm wide, mildly enlarged. Otherwise, no abnormal flui d collection the pelvis or pelvic lymphadenopathy. Bones: No osseous destructive process. IMPRESSION: 1. Small questionable extraluminal pocket of air within the pelvis is stable. Could not exclude a col oenteric fistula\small pocket of free air.
[2024-02-28] MEDS: HYDROmorphone 0.5 MG/0.5 ML SYRINGE IVP PRN (16:36)
[2024-02-28] MEDS: NICOTINE 21MG/24HR PATCH TRANSDERM SCH (16:36)
[2024-02-28] MEDS: diphenhydrAMINE 50 MG/ML 1 ML VIAL IVP PRN (22:01)
[2024-02-29] MEDS: HYDROmorphone 1 MG/ML 1 ML SYRINGE IVP PRN (02:36)
--- NOTE | 2024-02-29 11:04 | P.GSHP ---
History of Present Illness H&P Date: 02/29/24 Chief Complaint: abdominal pain Ab this is a 38-year-old male who had complaints of waxing and waning abdominal pain. Patient has a previous history of small bowel resection due to enteritis in September of this year. His CAT scan is suggestive of several entero-enteral fistulas. Patient states he has had increasing pain over the last several weeks. Past Medical History Past Medical History: Osteoarthritis (OA) Additional Past Medical History / Comment(s): Guillian barre syndrome, chronic back pain, October 2023 bowel resection, complicated by abscess, sent home with IV abx. History of Any Multi-Drug Resistant Organisms: None Reported Past Surgical History: Bowel Resection, Orthopedic Surgery Additional Past Surgical History / Comment(s): kidney polyps removed in left kidney, lt shoulder Past Anesthesia/Blood Transfusion Reactions: No Reported Reaction Past Psychological History: No Psychological Hx Reported Smoking Status: Never smoker Past Alcohol Use History: Rare Past Drug Use History: None Reported Medications and Allergies Home Medications Medication Instructions Recorded Confirmed Type Losartan Potassium [Cozaar] 25 mg PO HS 12/27/21 02/28/24 History Allergies Allergy/AdvReac Type Severity Reaction Status Date / Time meperidine [From Demerol] Allergy Rash/Hives Verified 02/28/24 06:50 morphine Allergy Rash/Hives Verified 02/28/24 06:50 Surgical - Exam Vital Signs Temp Pulse Resp BP Pulse Ox 98.1 F 72 18 111/75 97 02/28/24 06:45 02/28/24 06:45 02/28/24 06:45 02/28/24 06:45 02/28/24 06:45 - General well developed, well nourished, no distress - Eyes PERRL - ENT normal pinna - Neck no masses - Respiratory normal expansion - Cardiovascular Rhythm: regular - Abdomen Abdomen: soft, non tender Results - Labs 02/28/24 07:29 02/28/24 07:29 Assessment and Plan Assessment: 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 He is stable currently. He will start on diet. Will obtain GI c onsult.
--- NOTE | 2024-02-29 12:17 | P.CONS ---
History of Present Illness - Reason for Consult Consult date: 02/29/24 Medical management Requesting physician: David Santillan - Chief Complaint Abdominal pain - History of Present Illness This is a 38-year-old obese gentleman with past medical history significant for recent exploratory laparotomy with small bowel resection secondary to small bowel enteritis, diverticular abscess in the mid pelvis not drainable per interventional radiology service- October 2023,chronic back pain, Guillian Norman syndrome, osteoarthritis, nicotine dependence-chews, alcohol use and multiple other medical issues reports worsening abdominal pain over the last several weeks, weight gain and did not follow-up with PCP as he had no insurance. Patient's weight is actually decreased, in October patient was 118 kg, currently 106 kg. Denies nausea vomiting or diarrhea. Denies change in bowel habits. Spontaneous voiding without difficulty. Denies chest pain, palpitations or shortness of breath. 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 Previous colonic wall thickening has resolved no doron acute diverticulitis seen. Small fatty umbilical hernia slightly larger at 2.7 versus 1.5 cm previously. Review of Systems ROS Statement: Those systems with pertinent positive or pertinent negative responses have been documented in the HPI. ROS Other: All systems not noted in ROS Statement are negative. Past Medical History Past Medical History: Osteoarthritis (OA) Additional Past Medical History / Comment(s): Guillian barre syndrome, chronic back pain, October 2023 bowel resection, complicated by abscess, sent home with IV abx. History of Any Multi-Drug Resistant Organisms: None Reported Past Surgical History: Bowel Resection, Orthopedic Surgery Additional Past Surgical History / Comment(s): kidney polyps removed in left kidney, lt shoulder Past Anesthesia/Blood Transfusion Reactions: No Reported Reaction Past Psychological History: No Psychological Hx Reported Smoking Status: Never smoker Past Alcohol Use History: Rare Past Drug Use History: None Reported Medications and Allergies Home Medications Medication Instructions Recorded Confirmed Type Losartan Potassium [Cozaar] 25 mg PO HS 12/27/21 02/28/24 History Allergies Allergy/AdvReac Type Severity Reaction Status Date / Time meperidine [From Demerol] Allergy Rash/Hives Verified 02/28/24 06:50 morphine Allergy Rash/Hives Verified 02/28/24 06:50 Physical Exam Vitals: Vital Signs Temp Pulse Pulse Resp BP BP Pulse Ox 02/29/24 07:13 97.3 F L 56 L 18 126/78 100 02/29/24 02:36 50 L 16 02/29/24 02:00 97.6 F 45 L 99/65 98 02/28/24 23:15 56 L 19 02/28/24 20:00 98.1 F 46 L 99/66 100 02/28/24 16:12 98.3 F 54 L 127/70 100 02/28/24 15:50 97.7 F 52 L 17 106/64 97 02/28/24 15:47 98.1 F 52 L 17 105/68 100 02/28/24 12:31 97.8 F 68 17 110/60 97 Intake and Output 02/28/24 02/29/24 02/29/24 22:59 06:59 14:59 Intake Total 1300 Balance 1300 Intake: Intake, IV Titration 1300 Amount Piperacillin-Tazobactam 3 100 .375 gm In Sodium Chloride 0.9% 100 ml @ 25 mls/hr IVPB Q8HR JULIET Rx# :[id number] Sodium Chloride 0.9% 1, 1200 000 ml @ 100 mls/hr IV . Q10H JULIET Rx#:[id number] Other: # Voids 5 # Bowel Movements 1 Weight 105.687 kg PHYSICAL EXAM: VITAL SIGNS: [As above] GENERAL: Obese, alert and oriented x 3, sitting up in bed, NAD HEENT: Normocephalic conjunctivae normal. eyes normal. NECK: Supple, no JVD. No thyroid enlargement. No LNs CARDIOVASCULAR: S1, S2 regular.. No murmur RESPIRATION: Unlabored, equal air entry ,breath sounds diminished in the bases. No rhonchi or crackles. No bronchial breathing. ABDOMEN: Soft, diffuse tenderness positive bowel sounds LEGS: No edema. no swelling NERVOUS SYSTEM: Cranial N 2-12 grossly normal. No focal deficits. Skin: Forehead diaphoretic, no rashes noted Results CBC & Chem 7: 02/28/24 07:29 02/28/24 07:29 Assessment and Plan Assessment: Abdominal pain worsening over the last several weeks, in a patient with recent exploratory laparotomy with small bowel resection secondary to small bowel enteritis, diverticular abscess in the mid pelvis not drainable per interve [facility] radiology service- October 2023, CT suggest coloenteric fistula, small pocket of free air. Guillian Norman syndrome Chronic back pain Osteoarthritis Morbid obesity, BMI 37.3 Alcohol use Nicotine dependence, chews Plan: Continue on current medication regimen ,monitoring and symptomatic treatment. Maintain IV fluid hydration, antibiotics of Zosyn. Smoking sensation reinforced, nicotine patch in place. Alcohol abstinence reinforced. Increase ambulation as tolerated. Diet advancement as per general surgery. General surgery-primary, mentions a GI consult; no GI services at this site this week. The impression and plan of care has been dictated as directed. : I performed a history and examination of this patient, discussed the same with the dictator. I agree with the dictator's note ,documented as a scribe. Any additional findings or plans will be noted.
[2024-02-29] MEDS: PANTOPRAZOLE 40 MG/10 ML VIAL IVP SCH (12:23)
--- NOTE | 2024-03-01 08:51 | P.PN ---
Subjective Progress Note Date: 03/01/24 Patient states he feels okay today. He has had some improvement in his abdominal pain. He tolerated regular diet yesterday. On exam vital signs appear stable. Abdomen soft. 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 Patient will start on steroids today. There is no GI service available. He may need to be transferred if he does not improve. Objective - Vital Signs Vital signs: Vital Signs Temp 97.3 F L 03/01/24 02:33 Pulse 56 L 03/01/24 02:33 Resp 16 03/01/24 02:33 BP 108/70 03/01/24 02:33 Pulse Ox 97 03/01/24 02:33 FiO2 Intake & Output 02/29/24 03/01/24 03/01/24 18:59 06:59 18:59 Other: # Voids 2 1 1 # Bowel Movements 1 - Labs CBC & Chem 7: 02/28/24 07:29 02/28/24 07:29
--- NOTE | 2024-03-01 09:21 | P.PN ---
Subjective Patient seen and evaluated today. He is feeling better. Surgery is planning on keeping him another day. He has suspected Crohn's disease with fistula per surgery. Objective - Vital Signs Vital signs: Vital Signs Temp 97.3 F L 03/01/24 02:33 Pulse 56 L 03/01/24 02:33 Resp 16 03/01/24 02:33 BP 108/70 03/01/24 02:33 Pulse Ox 97 03/01/24 02:33 FiO2 Intake & Output 02/29/24 03/01/24 03/01/24 18:59 06:59 18:59 Other: # Voids 2 1 1 # Bowel Movements 1 - Exam General: The patient is awake and alert, in no distress, and does not appear acutely ill. Neck: The neck is supple, there is no thyromegaly, lymphadenopathy, tenderness or JVD. Cardiovascular: S1S2 is normal, There is a regular rate and rhythm. No murmur, rub or gallop is appreciated. Respiratory: Lungs are clear to auscultation bilaterally, respirations are non-labored, breath sounds are equal. Gastrointestinal: Soft, non-distended, mildly tender abdomen without masses or organomegaly noted. Musculoskeletal: Normal ROM, no tenderness, There is no pedal edema. There is no calf tenderness or swelling. No cords were appreciated. Neurological: CN II-XII intact, there are no obvious motor or sensory deficits. Coordination appears grossly intact. Speech is normal. Skin: Skin is warm and dry and no rashes or lesions are noted. - Labs CBC & Chem 7: 02/28/24 07:29 02/28/24 07:29 Assessment and Plan (1) Chronic back pain Current Visit: Yes Status: Acute Code(s): M54.9 - DORSALGIA, UNSPECIFIED; G89.29 - OTHER CHRONIC PAIN SNOMED Code(s): 227288061 (2) H/O Guillain-[place] syndrome Current Visit: Yes Status: Acute Code(s): Z86.69 - PERSONAL HISTORY OF DIS OF THE NERVOUS SYS AND SENSE ORGANS SNOMED Code(s): 958533327123304 (3) BMI 37.0-37.9, adult Current Visit: Yes Status: Acute Code(s): Z68.37 - BODY MASS INDEX [BMI] 37.0-37.9, ADULT SNOMED Code(s): 680466827 (4) Chewing tobacco dependence Current Visit: Yes Status: Acute Code(s): F17.220 - NICOTINE DEPENDENCE, CHEWING TOBACCO, UNCOMPLICATED SNOMED Code(s): 50204774464282039 (5) Entero-colonic fistula Current Visit: Yes Status: Acute Code(s): K63.2 - FISTULA OF INTESTINE SNOMED Code(s): 068158697 (6) Abdominal pain Current Visit: No Status: Acute Code(s): R10.9 - UNSPECIFIED ABDOMINAL PAIN SNOMED Code(s): 13793417 Plan: At this point he is medically stable. He will continue on hydromorphone for pain. He is on Solu-Medrol as an anti-inflammatory for possible Crohn's disease. GI is unavailable and surgery will transfer if he does not improve enough. Will follow with you as needed at this time. Nicotine patch has already been ordered for his chewing tobacco dependence. Continued early ambulation for DVT prophylaxis
[2024-03-01] MEDS: methylPREDNISolone SOD SUCCIN 750 MG in SODIUM CHLORIDE 0.9% 250 ML IVPB SCH (11:48)
--- NOTE | 2024-03-02 08:37 | P.PN ---
Subjective Progress Note Date: 03/02/24 Patient states he feels slightly better today. He was started on IV steroids yesterday. On exam vital signs appear stable. Abdomen soft. Crohn's with entero-enteral fistula. Patient will receive steroids for the next 48 hours and potentially be discharged home. He will need to follow-up with GI. Objective - Vital Signs Vital signs: Vital Signs Temp 98.0 F 03/02/24 07:00 Pulse 75 03/02/24 07:00 Resp 16 03/02/24 07:00 BP 112/57 03/02/24 07:00 Pulse Ox 93 L 03/02/24 07:00 FiO2 Intake & Output 03/01/24 03/02/24 03/02/24 18:59 06:59 18:59 Other: # Voids 1 2 # Bowel Movements 1 - Labs CBC & Chem 7: 02/28/24 07:29 02/28/24 07:29
--- NOTE | 2024-03-02 11:49 | P.PN ---
Subjective March 01, 2024: Patient seen and evaluated today. He is feeling better. Surgery is planning on keeping him another day. He has suspected Crohn's disease with fistula per surgery. March 02, 2024: Patient remains uncomfortable and his bed. He is up ambulating regularly. He has hydromorphone ordered for pain. He is on Solu- Medrol for suspected Crohn's disease. He denies any chest pains pressures or shortness of breath this time. We discussed DVT prophylaxis since he is in the hospital. Patient has a history of hypertension and previously takes losartan. Currently vitals are stable, blood pressure is normal. No laboratory studies are pending. Objective - Vital Signs Vital signs: Vital Signs Temp 98.0 F 03/02/24 07:00 Pulse 75 03/02/24 07:00 Resp 16 03/02/24 07:00 BP 112/57 03/02/24 07:00 Pulse Ox 93 L 03/02/24 07:00 FiO2 Intake & Output 03/01/24 03/02/24 03/02/24 18:59 06:59 18:59 Other: # Voids 1 2 # Bowel Movements 1 - Exam General: The patient is awake and alert, in no distress, and does not appear acutely ill. Neck: The neck is supple, there is no thyromegaly, lymphadenopathy, tenderness or JVD. Cardiovascular: S1S2 is normal, There is a regular rate and rhythm. No murmur, rub or gallop is appreciated. Respiratory: Lungs are clear to auscultation bilaterally, respirations are non-labored, breath sounds are equal. Gastrointestinal: Soft, non-distended, mildly tender abdomen without masses or organomegaly noted. Musculoskeletal: Normal ROM, no tenderness, There is no pedal edema. There is no calf tenderness or swelling. No cords were appreciated. Neurological: CN II-XII intact, there are no obvious motor or sensory deficits. Coordination appears grossly intact. Speech is normal. Skin: Skin is warm and dry and no rashes or lesions are noted. - Labs CBC & Chem 7: 02/28/24 07:29 02/28/24 07:29 Assessment and Plan (1) Abdominal pain Current Visit: No Status: Acute Code(s): R10.9 - UNSPECIFIED ABDOMINAL PAIN SNOMED Code(s): 94315102 (2) Chronic back pain Current Visit: Yes Status: Acute Code(s): M54.9 - DORSALGIA, UNSPECIFIED; G89.29 - OTHER CHRONIC PAIN SNOMED Code(s): 155864051 (3) H/O Guillain-Pierce syndrome Current Visit: Yes Status: Acute Code(s): Z86.69 - PERSONAL HISTORY OF DIS OF THE NERVOUS SYS AND SENSE ORGANS SNOMED Code(s): 625474605595016 (4) BMI 37.0-37.9, adult Current Visit: Yes Status: Acute Code(s): Z68.37 - BODY MASS INDEX [BMI] 37.0-37.9, ADULT SNOMED Code(s): 671989971 (5) Chewing tobacco dependence Current Visit: Yes Status: Acute Code(s): F17.220 - NICOTINE DEPENDENCE, CHEWING TOBACCO, UNCOMPLICATED SNOMED Code(s): 86769968733422392 (6) Entero-colonic fistula Current Visit: Yes Status: Acute Code(s): K63.2 - FISTULA OF INTESTINE SNOMED Code(s): 028058130 Plan: Patient continue his current medications and treatments. Will reevaluate medically in the next 24 hours. Crohn's seems likely based on his recurrent issues. Surgery is planning GI follow-up on discharge, but if she had would worsen, they plan on transferring him to another facility.
--- NOTE | 2024-03-03 08:38 | P.PN ---
Subjective Progress Note Date: 03/03/24 Patient states he feels better. His abdominal pain has improved. He is currently on Solu-Medrol. On exam vital signs appear stable. Abdomen is soft. Probable exacerbation of Crohn's disease. Patient will remain on IV steroids. Anticipate discharge home in next 48 hours Objective - Vital Signs Vital signs: Vital Signs Temp 97.9 F 03/03/24 07:13 Pulse 72 03/03/24 07:13 Resp 17 03/03/24 07:13 BP 107/69 03/03/24 07:13 Pulse Ox 94 L 03/03/24 07:13 FiO2 Intake & Output 03/02/24 03/03/24 03/03/24 18:59 06:59 18:59 Other: # Voids 2 1 # Bowel Movements 1 - Labs CBC & Chem 7: 02/28/24 07:29 02/28/24 07:29
--- NOTE | 2024-03-03 12:38 | P.PN ---
Subjective March 01, 2024: Patient seen and evaluated today. He is feeling better. Surgery is planning on keeping him another day. He has suspected Crohn's disease with fistula per surgery. March 02, 2024: Patient remains uncomfortable and his bed. He is up ambulating regularly. He has hydromorphone ordered for pain. He is on Solu- Medrol for suspected Crohn's disease. He denies any chest pains pressures or shortness of breath this time. We discussed DVT prophylaxis since he is in the hospital. Patient has a history of hypertension and previously takes losartan. Currently vitals are stable, blood pressure is normal. No laboratory studies are pending. March 03, 2024: Patient is sitting on the couch in his room today. He is able to ambulate. He has not needed pain medication for the past 18 hours. He remains on Zosyn, and Solu-Medrol for suspected Crohn's disease. He denies any chest pains pressure shortness of breath nausea or vomiting. Objective - Vital Signs Vital signs: Vital Signs Temp 97.9 F 03/03/24 07:13 Pulse 72 03/03/24 07:57 Resp 17 03/03/24 07:57 BP 107/69 03/03/24 07:13 Pulse Ox 94 L 03/03/24 07:13 FiO2 Intake & Output 03/02/24 03/03/24 03/03/24 18:59 06:59 18:59 Other: Voiding Method Toilet # Voids 2 1 # Bowel Movements 1 - Exam General: The patient is awake and alert, in no distress, and does not appear acutely ill. Neck: The neck is supple, there is no thyromegaly, lymphadenopathy, tenderness or JVD. Cardiovascular: S1S2 is normal, There is a regular rate and rhythm. No murmur, rub or gallop is appreciated. Respiratory: Lungs are clear to auscultation bilaterally, respirations are non-labored, breath sounds are equal. Gastrointestinal: Soft, non-distended, minimally tender abdomen without masses or organomegaly noted. Musculoskeletal: Normal ROM, no tenderness, There is no pedal edema. There is no calf tenderness or swelling. No cords were appreciated. Neurological: CN II-XII intact, there are no obvious motor or sensory deficits. Coordination appears grossly intact. Speech is normal. Skin: Skin is warm and dry and no rashes or lesions are noted. - Labs CBC & Chem 7: 02/28/24 07:29 02/28/24 07:29 Assessment and Plan (1) Abdominal pain Current Visit: No Status: Acute Code(s): R10.9 - UNSPECIFIED ABDOMINAL PAIN SNOMED Code(s): 06707396 (2) Chronic back pain Current Visit: Yes Status: Acute Code(s): M54.9 - DORSALGIA, UNSPECIFIED; G89.29 - OTHER CHRONIC PAIN SNOMED Code(s): 422638260 (3) H/O Guillain-[place] syndrome Current Visit: Yes Status: Acute Code(s): Z86.69 - PERSONAL HISTORY OF DIS OF THE NERVOUS SYS AND SENSE ORGANS SNOMED Code(s): 142702660849040 (4) BMI 37.0-37.9, adult Current Visit: Yes Status: Acute Code(s): Z68.37 - BODY MASS INDEX [BMI] 37.0-37.9, ADULT SNOMED Code(s): 839632611 (5) Chewing tobacco dependence Current Visit: Yes Status: Acute Code(s): F17.220 - NICOTINE DEPENDENCE, CHEWING TOBACCO, UNCOMPLICATED SNOMED Code(s): 88892919638349489 (6) Entero-colonic fistula Current Visit: Yes Status: Acute Code(s): K63.2 - FISTULA OF INTESTINE SNOMED Code(s): 893731378 Plan: Patient continues on Zosyn and Solu-Medrol. Will reevaluate medically in the next 24 hours. Crohn's seems likely based on his recurrent issues. Surgery is planning GI follow-up on discharge, but if she had would worsen, they plan on transferring him to another facility.
[2024-03-04 11:36] LABS: Blood Urea Nitrogen 13.1 mg/dL (9.0-27.0); Calcium 8.3 mg/dL (8.7-10.3); Carbon Dioxide 19.4 mmol/L (21.6-31.8); Chloride 107 mmol/L (96-109); Glucose 162 mg/dL (70-110); Potassium 4.2 mmol/L (3.5-5.5); Sodium 141 mmol/L (135-145)
--- NOTE | 2024-03-04 13:44 | P.PN ---
Subjective Progress Note Date: 03/04/24 patient still has some complaints of crampy pain. He denies any diarrhea or vomiting. On exam vital signs appear stable. Abdomen is soft. Exacerbation of Crohn's disease. Patient will continue IV steroids. We will plan on discharge once he is abdominal complaints have improved. Objective - Vital Signs Vital signs: Vital Signs Temp 97.6 F 03/04/24 07:04 Pulse 63 03/04/24 07:04 Resp 15 03/04/24 07:04 BP 122/76 03/04/24 07:04 Pulse Ox 97 03/04/24 01:31 FiO2 Intake & Output 03/03/24 03/04/24 03/04/24 18:59 06:59 18:59 Other: Voiding Method Toilet # Voids 6 4 # Bowel Movements 1 - Labs CBC & Chem 7: 02/28/24 07:29 03/04/24 04:19 Labs: Abnormal Lab Results - Last 24 Hours (Table) 03/04/24 Range/Units 04:19 Carbon Dioxide 19.4 L (21.6-31.8) mmol/L Anion Gap 14.60 H (4.00-12.00) mmol/L Glucose 162 H (70-110) mg/dL Calcium 8.3 L (8.7-10.3) mg/dL
[2024-03-04] MEDS: ONDANSETRON 4 MG/2 ML VIAL IVP PRN (15:58)
[2024-03-05 08:25] LABS: African American GFR (CKD) >90 (>60 ml/min/1.73 sqM); Anion Gap 9 mmol/L; Blood Urea Nitrogen 15 mg/dL (9-20); Calcium 8.7 mg/dL (8.4-10.2); Carbon Dioxide 27 mmol/L (22-30); Chloride 103 mmol/L (98-107); Glucose 135 mg/dL (74-99); Non-African American GFR(CKD) >90 (>60 ml/min/1.73 sqM); Potassium 3.9 mmol/L (3.5-5.1); Sodium 139 mmol/L (137-145)
[2024-03-05] MEDS: SERTRALINE 50 MG TAB PO SCH (10:36)
[2024-03-05] MEDS: amLODIPine 5 MG TAB PO SCH (10:36)
--- NOTE | 2024-03-05 11:52 | P.PN ---
Subjective Progress Note Date: 03/05/24 - History of Present Illness This is a 38-year-old obese gentleman with past medical history significant for recent exploratory laparotomy with small bowel resection secondary to small bowel enteritis, diverticular abscess in the mid pelvis not drainable per interventional radiology service- October 2023,chronic back pain, Guillian Norman syndrome, osteoarthritis, nicotine dependence-chews, alcohol use and multiple other medical issues reports worsening abdominal pain over the last several weeks, weight gain and did not follow-up with PCP as he had no insurance. Patient's weight is actually decreased, in October patient was 118 kg, currently 106 kg. Denies nausea vomiting or diarrhea. Denies change in bowel habits. Spontaneous voiding without difficulty. Denies chest pain, palpitations or shortness of breath. 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 Previous colonic wall thickening has resolv ed no doron acute diverticulitis seen. Small fatty umbilical hernia slightly larger at 2.7 versus 1.5 cm previously. March 01, 2024: Patient seen and evaluated today. He is feeling better. Surge ry is planning on keeping him another day. He has suspected Crohn's disease with fistula per surgery. March 02, 2024: Patient remains uncomfortable and his bed. He is up ambulating regularly. He has hydromorphone ordered for pain. He is on Solu- Medrol for suspected Crohn's disease. He denies any chest pains pressures or shortness of breath this time. We discussed DVT prophylaxis since he is in the hospital. Patient has a history of hypertension and previously takes losartan. Currently vitals are stable, blood pressure is normal. No laboratory studies are pending. March 03, 2024: Patient is sitting on the couch in his room today. He is able to ambulate. He has not needed pain medication for the past 18 hours. He remains on Zosyn, and Solu-Medrol for suspected Crohn's disease. He denies any chest pains pressure shortness of breath nausea or vomiting. 03/04/2024 continues on Zosyn and steroids, complains of upper abdominal pressure. Reports 2 soft bowel movements this morning. Ambulating, tolerating exertion well. Denies chest pain, palpitations or shortness of breath. Afebrile. Objective - Vital Signs Vital signs: Vital Signs Temp 97.6 F 03/04/24 07:04 Pulse 63 03/04/24 07:04 Resp 15 03/04/24 07:04 BP 122/76 03/04/24 07:04 Pulse Ox 97 03/04/24 01:31 FiO2 Intake & Output 03/03/24 03/04/24 03/04/24 18:59 06:59 18:59 Other: Voiding Method Toilet # Voids 6 4 # Bowel Movements 1 - Exam General: Alert and oriented x 3, sitting up in bed, no acute distress. Neck: neck is supple, no JVD. Cardiovascular: S1S2 is normal, There is a regular rate and rhythm. No murmur, rub or gallop is appreciated. Respiratory: Unlabored, equal air entry, clear to auscultation. Gastrointestinal: Soft, non-distended, minimally diffuse tender abdomen without masses or organomegaly noted. Musculoskeletal: Normal ROM, no tenderness, There is no pedal edema. There is no calf tenderness or swelling. Neurological: CN II-XII intact, strength and sensation grossly intact. Skin: Skin is warm and dry and no rashes noted. - Labs CBC & Chem 7: 02/28/24 07:29 03/05/24 07:09 Labs: Abnormal Lab Results - Last 24 Hours (Table) 03/04/24 Range/Units 04:19 Carbon Dioxide 19.4 L (21.6-31.8) mmol/L Anion Gap 14.60 H (4.00-12.00) mmol/L Glucose 162 H (70-110) mg/dL Calcium 8.3 L (8.7-10.3) mg/dL Assessment and Plan Assessment: Abdominal pain worsening over the last several weeks, in a patient with recent exploratory laparotomy with small bowel resection secondary to small bowel enteritis, diverticular abscess in the mid pelvis not drainable per interventional radiology service- October 2023, CT suggest coloenteric fistula, small pocket of free air. Suspected Crohn's disease per general surgery. Guillian Norman syndrome Chronic back pain Osteoarthritis Morbid obesity, BMI 37.3 Alcohol use Nicotine dependence, chews Plan: Continue on current medication regimen ,monitoring and symptomatic treatment. Maintain IV fluid hydration, antibiotics of Zosyn and IV steroids. no GI services at this site this week. Smoking sensation reinforced, nicotine patch in place. Alcohol abstinence reinforced.Increase ambulation as tolerated. The impression and plan of care has been dictated as directed. : I performed a history and examination of this patient, discussed the same with the dictator. I agree with the dictator's note ,documented as a scribe. Any additional findings or plans will be noted.
--- NOTE | 2024-03-05 12:34 | P.PN ---
Subjective Progress Note Date: 03/05/24 CHIEF COMPLAINT: abdominal pain HISTORY OF PRESENT ILLNESS: patient complains of crampy abdominal pain. Patient reports that he had pain after eating salad at lunch with nausea. Patient has been on IV steroids for possible Crohn's exacerbation. Patient also having some blood in his sputum. Afebrile. patient seen and examined with Dr. lockwood PHYSICAL EXAM: VITAL SIGNS: Reviewed. GENERAL: Well-developed in no acute distress. ABDOMEN: Soft. NEUROLOGIC: Alert and oriented. Cranial nerves II through XII grossly intact. ASSESSMENT: 1. Crohn's exacerbation 2. enterocolonic fistula 3. History of exploratory laparotomy with small bowel resection on 10/22/2023 for enteritis PLAN: -patient is not improving with the IV steroids. Continues to have abdominal pain and nausea with eating. There is no GI service available at this institution this week. Working on transferring patient to [facility] for GI evaluation -Pulmonary service has been consulted for blood in the sputum Physician Product Line Manager note has been reviewed by physician. Signing provider agrees with the documented findings, assessment, and plan of care. Objective - Vital Signs Vital signs: Vital Signs Temp 97.6 F 03/05/24 06:55 Pulse 79 03/05/24 07:40 Resp 17 03/05/24 07:40 BP 163/92 03/05/24 06:55 Pulse Ox 94 L 03/05/24 06:55 FiO2 Intake & Output 03/04/24 03/05/24 03/05/24 18:59 06:59 18:59 Other: Voiding Method Toilet # Voids 4 2 - Labs CBC & Chem 7: 02/28/24 07:29 03/05/24 07:09 Labs: Abnormal Lab Results - Last 24 Hours (Table) 03/05/24 Range/Units 07:09 Glucose 135 H (74-99) mg/dL
--- NOTE | 2024-03-05 12:44 | P.PN ---
Subjective Progress Note Date: 03/05/24 - History of Present Illness This is a 38-year-old obese gentleman with past medical history significant for recent exploratory laparotomy with small bowel resection secondary to small bowel enteritis, diverticular abscess in the mid pelvis not drainable per interventional radiology service- October 2023,chronic back pain, Guillian Norman syndrome, osteoarthritis, nicotine dependence-chews, alcohol use and multiple other medical issues reports worsening abdominal pain over the last several weeks, weight gain and did not follow-up with PCP as he had no insurance. Patient's weight is actually decreased, in October patient was 118 kg, currently 106 kg. Denies nausea vomiting or diarrhea. Denies change in bowel habits. Spontaneous voiding without difficulty. Denies chest pain, palpitations or shortness of breath. 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 Previous colonic wall thickening has resolv ed no doron acute diverticulitis seen. Small fatty umbilical hernia slightly larger at 2.7 versus 1.5 cm previously. March 01, 2024: Patient seen and evaluated today. He is feeling better. Surge ry is planning on keeping him another day. He has suspected Crohn's disease with fistula per surgery. March 02, 2024: Patient remains uncomfortable and his bed. He is up ambulating regularly. He has hydromorphone ordered for pain. He is on Solu- Medrol for suspected Crohn's disease. He denies any chest pains pressures or shortness of breath this time. We discussed DVT prophylaxis since he is in the hospital. Patient has a history of hypertension and previously takes losartan. Currently vitals are stable, blood pressure is normal. No laboratory studies are pending. March 03, 2024: Patient is sitting on the couch in his room today. He is able to ambulate. He has not needed pain medication for the past 18 hours. He remains on Zosyn, and Solu-Medrol for suspected Crohn's disease. He denies any chest pains pressure shortness of breath nausea or vomiting. 03/04/2024 continues on Zosyn and steroids, complains of upper abdominal pressure. Reports 2 soft bowel movements this morning. Ambulating, tolerating exertion well. Denies chest pain, palpitations or shortness of breath. Afebrile. 03/05/2024 hypertensive, reports mild depression over prolonged abdominal pain .Norvasc and Zoloft added to med regimen .continues to complain of crampy abdominal pressure after eating accompanied by nausea-states unchanged. Continues on IV steroids and Zosyn. Afebrile. Objective - Vital Signs Vital signs: Vital Signs Temp 97.6 F 03/05/24 06:55 Pulse 79 03/05/24 07:40 Resp 17 03/05/24 07:40 BP 163/92 03/05/24 06:55 Pulse Ox 94 L 03/05/24 06:55 FiO2 Intake & Output 03/04/24 03/05/24 03/05/24 18:59 06:59 18:59 Other: Voiding Method Toilet # Voids 4 2 - Exam General: Alert and oriented x 3, sitting up in bed, no acute distress. Neck: supple, no JVD. Cardiovascular: S1S2 is normal, regular rate and rhythm. No murmur, rub or gallop is appreciated. Respiratory: Unlabored, equal air entry, clear to auscultation. Gastrointestinal: Soft, non-distended, minimally diffuse tender abdomen, positive bowel sounds Musculoskeletal: no pedal edema. There is no calf tenderness or swelling. Neurological: CN II-XII intact, strength and sensation grossly intact. Skin: Skin is warm and dry,no rashes noted. - Labs CBC & Chem 7: 02/28/24 07:29 03/05/24 07:09 Labs: Abnormal Lab Results - Last 24 Hours (Table) 03/05/24 Range/Units 07:09 Glucose 135 H (74-99) mg/dL Assessment and Plan Assessment: Abdominal pain worsening over the last several weeks, in a patient with recent exploratory laparotomy with small bowel resection secondary to small bowel enteritis, diverticular abscess in the mid pelvis not drainable per interventional radiology service- October 2023, CT suggest coloenteric fistula, small pocket of free air. Suspected Crohn's disease per general surgery. Guillian Norman syndrome Chronic back pain Osteoarthritis Morbid obesity, BMI 37.3 Alcohol use Nicotine dependence, chews Plan: Continue on current medication regimen ,monitoring and symptomatic treatment. Patient reporting no improvement on Zosyn and IV steroids. General surgery has initiated transfer to [facility] as there has no GI services at this site this week.patient reported some blood in sputum to general surgery and they have consulted pulmonary . CBC added onto a.m. labs , pending .smoking sensation reinforced, nicotine patch in place. Alcohol abstinence reinforced.Increase ambulation as tolerated. The impression and plan of care has been dictated as directed. : I performed a history and examination of this patient, discussed the same with the dictator. I agree with the dictator's note ,documented as a scribe. Any additional findings or plans will be noted.
[2024-03-05 13:07] LABS: HGB 12.3 gm/dL (13.0-17.5); Hypochromasia Slight; MCH 27.3 pg (25.0-35.0); MCHC 33.1 g/dL (31.0-37.0); MCV 82.5 fL (80.0-100.0); Mean Platelet Volume 8.7; Platelet Count 316 k/uL (150-450); RBC 4.49 m/uL (4.30-5.90); RDW 15.6 % (11.5-15.5); WBC 10.5 k/uL (3.8-10.6)
--- NOTE | 2024-03-05 13:10 | XR ---
EXAMINATION TYPE: XR chest 1V DATE OF EXAM: 03/05/2024 COMPARISON: 10/31/2023, CT scan 10/31/[address] abdomen and pelvis 02/28/2024 HISTORY: Metaphysis TECHNIQUE: Single frontal view of the chest is obtained. FINDINGS: A limited inspiration with cardiomegaly. Mild prominence of the interstitium and subsegmen missy basilar linear changes. Prominent right hilum possibly related to reduced inspiration and promine nt pulmonary vasculature. Recent CT scan abdomen and pelvis of 10/31/2023 did partially included evalua tion and the right hilum with no definite abnormality. . At that time the pulmonary main trunk measur es 3.5 cm most typical of pulmonary arterial hypertension. . No pneumothorax. Degenerative change of the spine. Asymmetric attenuation involving the left lung a pex. IMPRESSION: 1. There is asymmetric density involving the left lung apex. Of this could possibly be related to sup erimposed structures a underlying mass not excluded. Recommend CT chest. 2. Prominent right hilum possibly related to reduced inspiration and prominent pulmonary vasculature. Recent CT scan abdomen and pelvis of 10/31/2023 did partially included evaluation and the right hilum with no definite abnormality. . At that time the pulmonary main trunk measures 3.5 cm most typical of pulmonary arterial hypertension.
[2024-03-05] MEDS ORDERED: RX INFO: IV CONTRAST WAS GIVEN 1 EACH MISC MISCELLANE PRN (22:03)
--- NOTE | 2024-03-05 22:03 | P.CNPUL ---
History of Present Illness Consult date: 03/05/24 Chief complaint: Hemoptysis History of present illness: 38-year-old male patient being seen for episodes of coughing up bloody mucus that started over the past 24 hours and the patient had around 4-5 of those episodes. The sputum was blood-tinged. He did encounter some nausea and emesis following that the patient had reported episodes of hemoptysis. Noted the patient does not have any chest pain. No bright red blood per rectum. No melan otic stools. This patient has previous history of small bowel resection secondary to small bowel enteritis and his course was complicated by development of intra-abdominal abscess formation in the mid pelvis that was not drainable by interventional radiology. The patient was discharged home on IV antibiotics. The patient presented to us with waxing and waning abdominal pain. He had a follow-up CAT scan of the abdomen that was done at the time of his admission in the emergency d 2023 showed small bowel tissue with active enteritis and submucosal edema and serosal fibrous adhesion. There was abundant serositis. No evidence of any malignancy. Epartment that showed evidence of previous surgery in the left mid abdomen. The small bowel appeared patulous up to 3.4 cm in size likely secondary to postsurgical change. There was mild stool burden. Sigmoid diverticulosis. Minimal fat stranding in the lower mid abdomen and small pocket of air questionable extraluminal that has remained stable. The patient had an umbilical hernia which was measuring 2.7 cm in size. No dilated small bowel. No free water or free air. No mesenteric or intra-abdominal lymphadenopathy. Noted the pathology from his bowel surgery from September. His WBC count is at 10.5 with hemoglobin 12.3 and a platelet count of 360. BUN is 15 with a creatinine of 0.7. Sodium is at 139. LFTs are essentially within normal limits. Lipase within normal limits. Due to concern of inflammatory bowel disease, the patient was started on IV Solu-Medrol. The patient was on IV Zosyn. Despite this hemoptysis, the patient's oxygenation is stable with a pulse ox of around 94 to 95%. Ordered a chest x-ray and the chest x-ray showed a asymmetric density in the left apex and the radiologist recommendation was to proceed with a CAT scan of the chest.. Noted the patient not taking any form of anticoagulation or blood thinners. No previous history of DVT or pulmonary embolism. Review of Systems Constitutional: Reports as per HPI Eyes: denies as per HPI, denies blurred vision, denies bulging eye, denies decreased vision, denies diplopia, denies discharge, denies dry eye, denies irritation, denies itching, denies pain, denies photophobia, denies loss of peripheral vision, denies loss of vision, denies tunnel vision/blind spots Ears: deny: decreased hearing, ear discharge, earache, tinnitus Ears, nose, mouth and throat: Reports as per HPI Breasts: absent: as per HPI, gynecomastia Cardiovascular: Reports as per HPI Respiratory: Reports hemoptysis Gastrointestinal: Reports abdominal pain Genitourinary: Reports as per HPI Musculoskeletal: Reports as per HPI Musculoskeletal: absent: ankle pain, ankle stiffness, ankle swelling, as per HPI, elbow pain, elbow stiffness, elbow swelling, foot pain, foot stiffness, f oot swelling, hand pain, hand stiffness, hand swelling, hip pain, hip stiffness, hip swelling, knee pain, knee stiffness, knee swelling, shoulder pain, shoulder stiffness, shoulder swelling, wrist pain, wrist stiffness, wrist swelling Integumentary: Reports as per HPI Neurological: Reports as per HPI Psychiatric: Reports as per HPI Endocrine: Reports as per HPI Hematologic/Lymphatic: Reports as per HPI Allergic/Immunologic: Reports as per HPI Past Medical History Past Medical History: Osteoarthritis (OA) Additional Past Medical History / Comment(s): Guillian barre syndrome, chronic back pain, October 2023 bowel resection, complicated by abscess, sent home with IV abx. History of Any Multi-Drug Resistant Organisms: None Reported Past Surgical History: Bowel Resection, Orthopedic Surgery Additional Past Surgical History / Comment(s): kidney polyps removed in left kidney, lt shoulder Past Anesthesia/Blood Transfusion Reactions: No Reported Reaction Past Psychological History: No Psychological Hx Reported Smoking Status: Never smoker Past Alcohol Use History: Rare Past Drug Use History: None Reported Medications and Allergies Home Medications Medication Instructions Recorded Confirmed Type Losartan Potassium [Cozaar] 25 mg PO HS 12/27/21 02/28/24 History Allergies Allergy/AdvReac Type Severity Reaction Status Date / Time meperidine [From Demerol] Allergy Rash/Hives Verified 02/28/24 06:50 morphine Allergy Rash/Hives Verified 02/28/24 06:50 Physical Exam Vitals: Vital Signs Temp Pulse Resp BP BP Pulse Ox 03/05/24 20:32 97.6 F 76 16 144/92 95 03/05/24 12:35 98.1 F 67 16 163/97 93 L 03/05/24 07:40 79 17 03/05/24 06:55 97.6 F 79 17 163/92 94 L 03/05/24 01:06 97.5 F L 78 18 167/98 90 L Intake and Output 03/05/24 03/05/24 03/05/24 06:59 14:59 22:59 Other: Voiding Method Toilet # Voids 2 1 General: Alert and oriented x 3, sitting up in bed, no acute distress. Head exam was generally normal. There was no scleral icterus or corneal arcus. Mucous membranes were moist. Neck: supple, no JVD. Cardiovascular: S1S2 is normal, regular rate and rhythm. No murmur, rub or gallop is appreciated. Respiratory: Unlabored, equal air entry, clear to auscultation. Gastrointestinal: Soft, non-distended, minimally diffuse tender abdomen, positive bowel sounds Musculoskeletal: no pedal edema. There is no calf tenderness or swelling. Neurological: CN II-XII intact, strength and sensation grossly intact. Skin: Skin is warm and dry,no rashes noted. Results - Laboratory Findings CBC and BMP: 03/05/24 07:09 03/05/24 07:09 Abnormal lab findings: Abnormal Labs 02/28/24 02/28/24 03/04/24 07:29 07:29 04:19 Hgb 12.7 L Hct 38.3 L RDW 15.6 H Lymphocytes # 0.9 L Sodium 136 L Carbon Dioxide 19.4 L Anion Gap 14.60 H Glucose 111 H 162 H Calcium 8.3 L Total Protein 6.2 L 03/05/24 03/05/24 07:09 07:09 Hgb 12.3 L Hct 37.0 L RDW 15.6 H Lymphocytes # Sodium Carbon Dioxide Anion Gap Glucose 135 H Calcium Total Protein - Diagnostic Findings Chest x-ray: image reviewed Assessment and Plan Plan: Hemoptysis with a patchy opacity in the left apex. Suspect aspiration as the patient was having nausea and emesis and the episode of hemoptysis occurred following food intake and subsequent emesis. Chest x-ray was noted. Tetrapare sis in the left upper lobe. CAT scan of the chest is recommended History of enteritis with previous small bowel resection and the pathology was consistent with enteritis, rule out underlying inflammatory bowel disease Abdominal pain, currently under workup, rule out inflammatory bowel disease Guillian Norman syndrome Chronic back pain Osteoarthritis Morbid obesity, BMI 37.3 Alcohol use Nicotine dependence, chews Plan Continue IV Zosyn Obtain a CAT scan of the chest with contrast Oxygenation is stable IV steroids regarding possibility of unremarkable disease General Surgery and GI consultation Will follow
--- NOTE | 2024-03-06 09:33 | CT ---
EXAMINATION TYPE: CT chest w con DATE OF EXAM: 03/05/2024 COMPARISON: 12/21/2013 HISTORY: 38-year-old male history of mass TECHNIQUE: Contiguous axial scanning of the chest after the administration of 100 mL of Isovue 300. Coronal/sagittal reconstructions performed. CT DLP: 761mGycm. Automatic exposure control utilized for a dose reduction. FINDINGS: The heart is upper limits of normal in size with trace anterior basilar pericardial fluid. Mild aneurysm ascending aorta to 4.3 cm versus 3.6 cm back in 2013. Conventional arch vessel branchin g anatomy. No thoracic adenopathy by CT size criteria. A large caliber main right and left pulmonary arteries measuring up to 2.9 cm. There are trace bilateral pleural effusions. Patchy opacity at the posterior right lung base. Patchy groundglass opacity anterior left upper lobe and left apex. Tiny hiatal hernia. Visualized upper abdomen shows trace perihepatic ascites. There is an anterior hi lar splenule. Mild generalized anasarca changes noted. No osseous destructive process. IMPRESSION: 1. Generalized anasarca change along with trace bilateral pleural effusions and mild perihepatic asci lenora fluid. There is also enlargement of the right and left pulmonary arteries suggesting underlying p ulmonary arterial hypertension. Consider CHF/fluid overload state. 2. Patchy opacity posterior right lung base could represent atelectasis or developing pneumonia. Maritza elate with patient's symptoms. 3. A second area of patchy groundglass anterior left upper lobe, possible patchy pulmonary edema vers us pneumonia. 4. Mild aneurysm ascending aorta at 4.3 cm versus 3.6 cm back in 2013.
[2024-03-06 13:19] VITALS: BMI 33.4
--- NOTE | 2024-03-06 14:39 | P.PN ---
Subjective Progress Note Date: 03/06/24 CHIEF COMPLAINT: abdominal pain HISTORY OF PRESENT ILLNESS: Patient continues to complain of abdominal cramping and nausea after eating. Complains of abdominal bloating. Reports overall appetite is decreased. He is only picking at his food. He is having bowel movements and flatus. He is no longer having hemoptysis. He was seen by pulmonary service and and they felt hemoptysis could be related to pneumonia. A CT scan of the chest had been completed reporting generalized anasarca with trace bilateral pleural effusions and mild perihepatic ascites fluid. Enlarged right and left pulmonary artery suggesting pulmonary arterial hypertension. Considered fluid overload state. Patchy opacity right lung base could represent atelectasis or developing pneumonia. A second area of patchy groundglass into the left lobe possible patchy pulmonary edema versus pneumonia. Mild aneurysm ascending aorta 4.3 cm versus 3.6 cm back in 2013 PHYSICAL EXAM: VITAL SIGNS: Reviewed. GENERAL: Well-developed in no acute distress. ABDOMEN: Soft. Mildly distended. Nontender NEUROLOGIC: Alert and oriented. Cranial nerves II through XII grossly intact. ASSESSMENT: 1. Crohn's exacerbation 2. enterocolonic fistula 3. History of exploratory laparotomy with small bowel resection on 10/22/2023 for enteritis PLAN: -patient is not improving with the IV steroids. Continues to have abdominal pain and nausea with eating. There is no GI service available at this institution this week. Working on transferring patient to [facility] for GI evaluation. Transfer team contacted again today. Currently awaiting for bed availability at [facility] -Await further recommendations per pulmonary service regarding CT scan findings. Discontinue patient's IV fluids. Physician Auto Tune Up Mechanic note has been reviewed by physician. Signing provider agrees with the documented findings, assessment, and plan of care. Objective - Vital Signs Vital signs: Vital Signs Temp 97.7 F 03/06/24 14:00 Pulse 65 03/06/24 14:00 Resp 18 03/06/24 14:00 BP 137/74 03/06/24 14:00 Pulse Ox 98 03/06/24 14:00 FiO2 Intake & Output 03/05/24 03/06/24 03/06/24 18:59 06:59 18:59 Intake Total 250 Balance 250 Weight 105.687 kg Intake: Oral 250 Other: Voiding Method Toilet Toilet # Voids 1 3 - Labs CBC & Chem 7: 03/05/24 07:09 03/05/24 07:09
--- NOTE | 2024-03-06 15:06 | P.PN ---
Subjective Progress Note Date: 03/06/24 - History of Present Illness This is a 38-year-old obese gentleman with past medical history significant for recent exploratory laparotomy with small bowel resection secondary to small bowel enteritis, diverticular abscess in the mid pelvis not drainable per interventional radiology service- October 2023,chronic back pain, Guillian Norman syndrome, osteoarthritis, nicotine dependence-chews, alcohol use and multiple other medical issues reports worsening abdominal pain over the last several weeks, weight gain and did not follow-up with PCP as he had no insurance. Patient's weight is actually decreased, in October patient was 118 kg, currently 106 kg. Denies nausea vomiting or diarrhea. Denies change in bowel habits. Spontaneous voiding without difficulty. Denies chest pain, palpitations or shortness of breath. 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 Previous colonic wall thickening has resolv ed no doron acute diverticulitis seen. Small fatty umbilical hernia slightly larger at 2.7 versus 1.5 cm previously. March 01, 2024: Patient seen and evaluated today. He is feeling better. Surge ry is planning on keeping him another day. He has suspected Crohn's disease with fistula per surgery. March 02, 2024: Patient remains uncomfortable and his bed. He is up ambulating regularly. He has hydromorphone ordered for pain. He is on Solu- Medrol for suspected Crohn's disease. He denies any chest pains pressures or shortness of breath this time. We discussed DVT prophylaxis since he is in the hospital. Patient has a history of hypertension and previously takes losartan. Currently vitals are stable, blood pressure is normal. No laboratory studies are pending. March 03, 2024: Patient is sitting on the couch in his room today. He is able to ambulate. He has not needed pain medication for the past 18 hours. He remains on Zosyn, and Solu-Medrol for suspected Crohn's disease. He denies any chest pains pressure shortness of breath nausea or vomiting. 03/04/2024 continues on Zosyn and steroids, complains of upper abdominal pressure. Reports 2 soft bowel movements this morning. Ambulating, tolerating exertion well. Denies chest pain, palpitations or shortness of breath. Afebrile. 03/05/2024 hypertensive, reports mild depression over prolonged abdominal pain .Norvasc and Zoloft added to med regimen .continues to complain of crampy abdominal pressure after eating accompanied by nausea-states unchanged. Continues on IV steroids and Zosyn. Afebrile. 03/06/2024 evaluated by pulmonary yesterday for hemoptysis, chest CT completed, results pending. Denies further hemoptysis. continues on Zosyn and steroids with symptoms unchanged; denies worsening ,denies improving. Neurosurgery initiated transfer yesterday to [facility] for further GI evaluation with bed pending. Denies chest pain, palpitations or shortness of breath. Maintaining O2 sats in the 90s on room air. Afebrile, normal WBC. Objective - Vital Signs Vital signs: Vital Signs Temp 97.7 F 03/06/24 14:00 Pulse 65 03/06/24 14:00 Resp 18 03/06/24 14:00 BP 137/74 03/06/24 14:00 Pulse Ox 98 03/06/24 14:00 FiO2 Intake & Output 03/05/24 03/06/24 03/06/24 18:59 06:59 18:59 Intake Total 250 Balance 250 Weight 105.687 kg Intake: Oral 250 Other: Voiding Method Toilet Toilet # Voids 1 3 - Exam General: Alert and oriented x 3, sitting up in bed, no acute distress. Neck: supple, no JVD. Cardiovascular: S1S2 is normal, regular rate and rhythm. Respiratory: Unlabored, equal air entry, clear to auscultation. Gastrointestinal: Soft, minimally distended, nontender abdomen, positive bowel sounds Musculoskeletal: no pedal edema,no calf tenderness. Neurological: CN II-XII intact, strength and sensation grossly intact. Skin: Skin is warm and dry,no rashes noted. - Labs CBC & Chem 7: 03/05/24 07:09 03/05/24 07:09 Assessment and Plan Assessment: Abdominal pain worsening over the last several weeks, in a patient with recent exploratory laparotomy with small bowel resection secondary to small bowel enteritis, diverticular abscess in the mid pelvis not drainable per interventional radiology service- October 2023, CT suggest coloenteric fistula, small pocket of free air. Suspected Crohn's disease per general surgery. Guillian Norman syndrome Chronic back pain Osteoarthritis Morbid obesity, BMI 37.3 Alcohol use Nicotine dependence, chews Hemoptysis, chest CT pending Plan: Continue on current medication regimen ,monitoring and symptomatic treatment. General surgery initiateded transfer to [facility] yesterday for GI evaluation, bed pending.chest CT results pending. smoking sensation reinforced. Alcohol abstinence reinforced.Increase ambulation as tolerated. The impression and plan of care has been dictated as directed. : I performed a history and examination of this patient, discussed the same with the dictator. I agree with the dictator's note ,documented as a scribe. Any additional findings or plans will be noted.
--- NOTE | 2024-03-06 15:37 | P.PN ---
Subjective Progress Note Date: 03/06/24 38-year-old male patient being seen for episodes of coughing up bloody mucus that started over the past 24 hours and the patient had around 4-5 of those episodes. The sputum was blood-tinged. He did encounter some nausea and emesis following that the patient had reported episodes of hemoptysis. Noted the patient does not have any chest pain. No bright red blood per rectum. No melanotic stools. This patient has previous history of small bowel resection secondary to small bowel enteritis and his course was complicated by development of intra-abdominal abscess formation in the mid pelvis that was not drainable by interventional radiology. The patient was discharged home on IV antibiotics. The patient presented to us with waxing and waning abdominal pain. He had a follow-up CAT scan of the abdomen that was done at the time of his admission in the emergency d 2023 showed small bowel tissue with active enteritis and submucosal edema and serosal fibrous adhesion. There was abundant serositis. No evidence of any malignancy. Epartment that showed evidence of previous surgery in the left mid abdomen. The small bowel appeared patulous up to 3.4 cm in size likely secondary to postsurgical change. There was mild stool burden. Sigmoid diverticulosis. Minimal fat stranding in the lower mid abdomen and small pocket of air questionable extraluminal that has remained stable. The patient had an umbilical hernia which was measuring 2.7 cm in size. No dilated small bowel. No free water or free air. No mesenteric or intra-abdominal lymphadenopathy. Noted the pathology from his bowel surgery from September. His WBC count is at 10.5 with hemoglobin 12.3 and a platelet count of 360. BUN is 15 with a creatinine of 0.7. Sodium is at 139. LFTs are essentially within normal limits. Lipase within normal limits. Due to concern of inflammatory bowel disease, the patient was started on IV Solu-Medrol. The patient was on IV Zosyn. Despite this hemoptysis, the patient's oxygenation is stable with a pulse ox of around 94 to 95%. Ordered a chest x-ray and the chest x-ray showed a asymmetric density in the left apex and the radiologist recommendation was to proceed with a CAT scan of the chest.. Noted the patient not taking any form of anticoagulation or blood thinners. No previous history of DVT or pulmonary embolism. On today's evaluation on 03/06/2024, the patient had emesis. Patient had a normal chest x-ray yesterday, a CAT scan of the chest was performed. The CAT scan of the chest was reviewed and there is an vague left upper lobe patchy groundglass pulmonary filtrates in addition to a trace bilateral pleural effusion and a patchy opacity in the right lung base. Suspect aspiration. The patient is not having any acute hemoptysis at this point in time. No respiratory distress. Remains on room air oxygen. Remains on IV Zosyn. Remains on steroids. The patient is being considered for transfer for further GI evaluation to another hospital. Objective - Vital Signs Vital signs: Vital Signs Temp 97.8 F 03/06/24 07:03 Pulse 83 03/06/24 08:00 Resp 18 03/06/24 08:00 BP 152/100 03/06/24 07:03 Pulse Ox 93 L 03/06/24 07:03 FiO2 Intake & Output 03/05/24 03/06/24 03/06/24 18:59 06:59 18:59 Other: Voiding Method Toilet Toilet # Voids 1 3 - Exam General: Alert and oriented x 3, sitting up in bed, no acute distress. Head exam was generally normal. There was no scleral icterus or corneal arcus. Mucous membranes were moist. Neck: supple, no JVD. Cardiovascular: S1S2 is normal, regular rate and rhythm. No murmur, rub or gallop is appreciated. Respiratory: Unlabored, equal air entry, clear to auscultation. Gastrointestinal: Soft, non-distended, minimally diffuse tender abdomen, positive bowel sounds Musculoskeletal: no pedal edema. There is no calf tenderness or swelling. Neurological: CN II-XII intact, strength and sensation grossly intact. Skin: Skin is warm and dry,no rashes noted. - Labs CBC & Chem 7: 03/05/24 07:09 03/05/24 07:09 Labs: Abnormal Lab Results - Last 24 Hours (Table) 03/05/24 Range/Units 07:09 Hgb 12.3 L (13.0-17.5) gm/dL Hct 37.0 L (39.0-53.0) % RDW 15.6 H (11.5-15.5) % Assessment and Plan Plan: Hemoptysis with a patchy opacity in the left apex. Suspect aspiration as the patient was having nausea and emesis and the episode of hemoptysis occurred following food intake and subsequent emesis. Chest x-ray was noted. CAT scan of the chest was noted, currently inactive and stable and the CAT scan of the chest was reviewed. Findings are consistent with limited infectious patchy pulmonary to distal left upper lobe and right lower lobe. Consider aspiration. History of enteritis with previous small bowel resection and the pathology was consistent with enteritis, rule out underlying inflammatory bowel disease Abdominal pain, currently under workup, rule out inflammatory bowel disease Guillian Norman syndrome Chronic back pain Osteoarthritis Morbid obesity, BMI 37.3 Alcohol use Nicotine dependence, chews Plan Oxygenation is stable and the patient is currently on room air oxygen I reviewed the CAT scan of the chest and there is a patchy groundglass opacity left upper lobe and another opacity in the right lung base. Small left pleural effusions. Suspect aspiration. Patient remains on IV Zosyn. No respiratory difficulties. No ongoing hemoptysis. Continue IV Zosyn Oxygenation is stable IV steroids regarding possibility of inflammatory bowel disease General Surgery and GI consultation Will follow
[2024-03-07] MEDS: DICYCLOMINE 20 MG TAB PO SCH (11:37)
--- NOTE | 2024-03-07 13:33 | P.PN ---
Subjective Progress Note Date: 03/07/24 CHIEF COMPLAINT: abdominal pain HISTORY OF PRESENT ILLNESS: patient reports that he feels the same. Continues to have abdominal cramping and pain after eating. The patient is tolerating diet just using a small amount. He is having bowel movements. Denies any nausea or vomiting. Does have a cough.Afebrile. PHYSICAL EXAM: VITAL SIGNS: Reviewed. GENERAL: Well-developed in no acute distress. ABDOMEN: Soft. Mildly distended. Nontender NEUROLOGIC: Alert and oriented. Cranial nerves II through XII grossly intact. ASSESSMENT: 1. Crohn's exacerbation 2. enterocolonic fistula 3. History of exploratory laparotomy with small bowel resection on 10/22/2023 for enteritis 4. Possible aspiration pneumonia PLAN: -add Bentyl for abdominal cramping -patient awaiting on bed availability at [facility]. -patient is not improving with the IV steroids. Working on transferring patient to [facility] for GI evaluation. -continue antibiotics Physician Continuity Clerk note has been reviewed by physician. Signing provider agrees with the documented findings, assessment, and plan of care. Objective - Vital Signs Vital signs: Vital Signs Temp 97.5 F L 03/07/24 06:35 Pulse 70 03/07/24 06:35 Resp 20 03/07/24 10:13 BP 151/96 03/07/24 06:35 Pulse Ox 95 03/07/24 06:35 FiO2 Intake & Output 03/06/24 03/07/24 03/07/24 18:59 06:59 18:59 Intake Total 250 600 Balance 250 600 Weight 105.687 kg Intake: Oral 250 600 Other: Voiding Method Toilet Toilet # Voids 2 3 3 - Labs CBC & Chem 7: 03/05/24 07:09 03/05/24 07:09
--- NOTE | 2024-03-07 14:59 | P.PN ---
Subjective Progress Note Date: 03/07/24 38-year-old male patient being seen for episodes of coughing up bloody mucus that started over the past 24 hours and the patient had around 4-5 of those episodes. The sputum was blood-tinged. He did encounter some nausea and emesis following that the patient had reported episodes of hemoptysis. Noted the patient does not have any chest pain. No bright red blood per rectum. No melanotic stools. This patient has previous history of small bowel resection secondary to small bowel enteritis and his course was complicated by development of intra-abdominal abscess formation in the mid pelvis that was not drainable by interventional radiology. The patient was discharged home on IV antibiotics. The patient presented to us with waxing and waning abdominal pain. He had a follow-up CAT scan of the abdomen that was done at the time of his admission in the emergency d 2023 showed small bowel tissue with active enteritis and submucosal edema and serosal fibrous adhesion. There was abundant serositis. No evidence of any malignancy. Epartment that showed evidence of previous surgery in the left mid abdomen. The small bowel appeared patulous up to 3.4 cm in size likely secondary to postsurgical change. There was mild stool burden. Sigmoid diverticulosis. Minimal fat stranding in the lower mid abdomen and small pocket of air questionable extraluminal that has remained stable. The patient had an umbilical hernia which was measuring 2.7 cm in size. No dilated small bowel. No free water or free air. No mesenteric or intra-abdominal lymphadenopathy. Noted the pathology from his bowel surgery from September. His WBC count is at 10.5 with hemoglobin 12.3 and a platelet count of 360. BUN is 15 with a creatinine of 0.7. Sodium is at 139. LFTs are essentially within normal limits. Lipase within normal limits. Due to concern of inflammatory bowel disease, the patient was started on IV Solu-Medrol. The patient was on IV Zosyn. Despite this hemoptysis, the patient's oxygenation is stable with a pulse ox of around 94 to 95%. Ordered a chest x-ray and the chest x-ray showed a asymmetric density in the left apex and the radiologist recommendation was to proceed with a CAT scan of the chest.. Noted the patient not taking any form of anticoagulation or blood thinners. No previous history of DVT or pulmonary embolism. On today's evaluation on 03/06/2024, the patient had emesis. Patient had a normal chest x-ray yesterday, a CAT scan of the chest was performed. The CAT scan of the chest was reviewed and there is an vague left upper lobe patchy groundglass pulmonary filtrates in addition to a trace bilateral pleural effusion and a patchy opacity in the right lung base. Suspect aspiration. The patient is not having any acute hemoptysis at this point in time. No respiratory distress. Remains on room air oxygen. Remains on IV Zosyn. Remains on steroids. The patient is being considered for transfer for further GI evaluation to another hospital. On 03/07/2024, the patient ambulating in the hallway. Still having some abdominal discomfort although he is tolerating his diet. Having bowel movements. Remains on IV Solu-Medrol. Remains on IV Zosyn. No respiratory difficulties and remains on room air oxygen. Afebrile. Pulse ox 96% on room air oxygen. Awaiting transfer to [facility]. Objective - Vital Signs Vital signs: Vital Signs Temp 97.5 F L 03/07/24 06:35 Pulse 70 03/07/24 06:35 Resp 20 03/07/24 10:13 BP 151/96 03/07/24 06:35 Pulse Ox 95 03/07/24 06:35 FiO2 Intake & Output 03/06/24 03/07/24 03/07/24 18:59 06:59 18:59 Intake Total 250 400 Balance 250 400 Weight 105.687 kg Intake: Oral 250 400 Other: Voiding Method Toilet Toilet # Voids 2 3 3 - Exam General: Alert and oriented x 3, sitting up in bed, no acute distress. Head exam was generally normal. There was no scleral icterus or corneal arcus. Mucous membranes were moist. Neck: supple, no JVD. Cardiovascular: S1S2 is normal, regular rate and rhythm. No murmur, rub or gallop is appreciated. Respiratory: Unlabored, equal air entry, clear to auscultation. Gastrointestinal: Soft, non-distended, minimally diffuse tender abdomen, positive bowel sounds Musculoskeletal: no pedal edema. There is no calf tenderness or swelling. Neurological: CN II-XII intact, strength and sensation grossly intact. Skin: Skin is warm and dry,no rashes noted. - Labs CBC & Chem 7: 03/05/24 07:09 03/05/24 07:09 Assessment and Plan Plan: Hemoptysis with a patchy opacity in the left apex. Suspect aspiration as the patient was having nausea and emesis and the episode of hemoptysis occurred following food intake and subsequent emesis. Chest x-ray was noted. CAT scan of the chest was noted, currently inactive and stable and the CAT scan of the chest was reviewed. Findings are consistent with limited infectious patchy pulmonary to distal left upper lobe and right lower lobe. Consider aspiration. History of enteritis with previous small bowel resection and the pathology was consistent with enteritis, rule out underlying inflammatory bowel disease Abdominal pain, currently under workup, rule out inflammatory bowel disease, clinically stable Guillian Norman syndrome Chronic back pain Osteoarthritis Morbid obesity, BMI 37.3 Alcohol use Nicotine dependence, chews Plan Overall respiratory status is unchanged Oxygenation is stable and the patient is currently on room air oxygen I reviewed the CAT scan of the chest and there is a patchy groundglass opacity left upper lobe and another opacity in the right lung base. Small left pleural effusions. Suspect aspiration. Patient remains on IV Zosyn. No respiratory difficulties. No ongoing hemoptysis. Continue IV Zosyn Oxygenation is stable IV steroids regarding possibility of inflammatory bowel disease General Surgery and GI consultation, the patient is being considered to be transferred to [facility]. Will follow
--- NOTE | 2024-03-07 16:36 | P.PN ---
Subjective Progress Note Date: 03/07/24 - History of Present Illness This is a 38-year-old obese gentleman with past medical history significant for recent exploratory laparotomy with small bowel resection secondary to small bowel enteritis, diverticular abscess in the mid pelvis not drainable per interventional radiology service- October 2023,chronic back pain, Guillian Norman syndrome, osteoarthritis, nicotine dependence-chews, alcohol use and multiple other medical issues reports worsening abdominal pain over the last several weeks, weight gain and did not follow-up with PCP as he had no insurance. Patient's weight is actually decreased, in October patient was 118 kg, currently 106 kg. Denies nausea vomiting or diarrhea. Denies change in bowel habits. Spontaneous voiding without difficulty. Denies chest pain, palpitations or shortness of breath. 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 Previous colonic wall thickening has resolv ed no doron acute diverticulitis seen. Small fatty umbilical hernia slightly larger at 2.7 versus 1.5 cm previously. March 01, 2024: Patient seen and evaluated today. He is feeling better. Surge ry is planning on keeping him another day. He has suspected Crohn's disease with fistula per surgery. March 02, 2024: Patient remains uncomfortable and his bed. He is up ambulating regularly. He has hydromorphone ordered for pain. He is on Solu- Medrol for suspected Crohn's disease. He denies any chest pains pressures or shortness of breath this time. We discussed DVT prophylaxis since he is in the hospital. Patient has a history of hypertension and previously takes losartan. Currently vitals are stable, blood pressure is normal. No laboratory studies are pending. March 03, 2024: Patient is sitting on the couch in his room today. He is able to ambulate. He has not needed pain medication for the past 18 hours. He remains on Zosyn, and Solu-Medrol for suspected Crohn's disease. He denies any chest pains pressure shortness of breath nausea or vomiting. 03/04/2024 continues on Zosyn and steroids, complains of upper abdominal pressure. Reports 2 soft bowel movements this morning. Ambulating, tolerating exertion well. Denies chest pain, palpitations or shortness of breath. Afebrile. 03/05/2024 hypertensive, reports mild depression over prolonged abdominal pain .Norvasc and Zoloft added to med regimen .continues to complain of crampy abdominal pressure after eating accompanied by nausea-states unchanged. Continues on IV steroids and Zosyn. Afebrile. 03/06/2024 evaluated by pulmonary yesterday for hemoptysis, chest CT completed, results pending. Denies further hemoptysis. continues on Zosyn and steroids with symptoms unchanged; denies worsening ,denies improving. Neurosurgery initiated transfer yesterday to [facility] for further GI evaluation with bed pending. Denies chest pain, palpitations or shortness of breath. Maintaining O2 sats in the 90s on room air. Afebrile, normal WBC. 03/07/2024 no overnight events. Consuming 75 to 100% of diet-documented. Reports unchanged cramping and sharp abdominal pain after eating-not worsened. Denies nausea or vomiting. Reports normal bowel movements-nonbloody. No hemoptysis, no sore throat, no cough congestion chills or fevers. Continues on steroids and antibiotics as per general surgery. CT reported possible aspiration pneumonia, asymptomatic. Patient continues on Zosyn. Denies shortness of breath, maintaining O2 sats in the high 90s on room air. Awaiting transfer to [facility]. Objective - Vital Signs Vital signs: Vital Signs Temp 98.0 F 03/07/24 13:45 Pulse 73 03/07/24 13:45 Resp 16 03/07/24 13:45 BP 131/74 03/07/24 13:45 Pulse Ox 96 03/07/24 13:45 FiO2 Intake & Output 03/06/24 03/07/24 03/07/24 18:59 06:59 18:59 Intake Total 250 600 Balance 250 600 Weight 105.687 kg Intake: Oral 250 600 Other: Voiding Method Toilet Toilet # Voids 2 3 3 - Exam General: Alert and oriented x 3, sitting up in bed, no acute distress. Neck: supple, no JVD. Cardiovascular: S1S2 is normal, regular rate and rhythm. Respiratory: Unlabored, equal air entry, clear to auscultation. Gastrointestinal: Soft, minimally distended ,nontender, positive bowel sounds Musculoskeletal: no pedal edema,no calf tenderness. Neurological: CN II-XII intact, strength and sensation grossly intact. Skin: Skin is warm and dry,no rashes noted. - Labs CBC & Chem 7: 03/05/24 07:09 03/05/24 07:09 Assessment and Plan Assessment: Abdominal pain worsening over the last several weeks, in a patient with recent exploratory laparotomy with small bowel resection secondary to small bowel enteritis, diverticular abscess in the mid pelvis not drainable per interventional radiology service- October 2023, CT suggest coloenteric fistula, small pocket of free air. Suspected Crohn's disease per general surgery. Guillian Norman syndrome Chronic back pain Osteoarthritis Morbid obesity, BMI 37.3 Alcohol use Nicotine dependence, chews Hemoptysis, resolved. Chest CT reported patchy opacity posterior right lung base and patchy groundglass anterior left upper lobe,possible aspiration pneumonia Ascending aortic aneurysm 4.3 cm, further monitoring outpatient Plan: Continue on current medication regimen ,monitoring and symptomatic treatment. Transfer in progress to [facility] pending bed availability steroids and antibiotics as per general surgery.smoking sensation reinforced. Alcohol abstinence reinforced.Increase ambulation as tolerated. The impression and plan of care has been dictated as directed. : I performed a history and examination of this patient, discussed the same with the dictator. I agree with the dictator's note ,documented as a scribe. Any additional findings or plans will be noted.
--- NOTE | 2024-03-08 12:51 | P.PN ---
Subjective Progress Note Date: 03/08/24 CHIEF COMPLAINT: Abdominal pain HISTORY OF PRESENT ILLNESS: The patient is a 38-year-old male with a complicated surgical history including intra-abdominal infection and suspected Crohn's disease without actual diagnosis. Patient reports he had abdominal cramping but is tolerating diet. At this time he was pending transfer to [facility] due to no GI availability at this time. ROS: No reports of nausea and vomiting. No fevers or chills. No new chest pain. No productive sputum PHYSICAL EXAM: VITAL SIGNS: Reviewed CONSTITUTIONAL: Well developed and in no acute distress. EYES: Conjuctivae without sclera icterus. Extraocular movements grossly intact. HEAD, EARS, NOSE, THROAT: Moist buccal mucosa. Head is atraumatic, normocephalic. Hears conversational speech. No nasal drainage. RESPIRATORY: Non-labored respirations and equal bilateral excursions. CARDIOVASCULAR: Palpable 2+ radial pulses. ABDOMEN: Well-healed lower midline incision. MUSCULOSKELETAL: No gross deformity of the lower extremities noted. No clubbing. No cyanosis. SKIN: Good skin turgor. Well perfused. NEUROLOGIC: Cranial nerves II through XII grossly intact. No focal or lateralizing signs. PSYCH: Appropriate affect. Alert and oriented to person, place and time. CLINICAL LABS: Reviewed. WBC normal 03/05/2024 at 10.5. Hemoglobin low 12.5, anemia. ASSESSMENT: 1. Abdominal pain suspected Crohn's disease with exacerbation 2. Anemia, chronic PLAN: 1. At this time, patient is in need of gastroenterology services for workup for Crohn's disease with pending transfer to [facility] when bed is available 2. Patient at this time pending financial assistance as he currently does not have insurance. Objective - Vital Signs Vital signs: Vital Signs Temp 97.9 F 03/08/24 06:45 Pulse 63 03/08/24 06:45 Resp 18 03/08/24 06:45 BP 160/84 03/08/24 06:45 Pulse Ox 96 03/08/24 06:45 FiO2 Intake & Output 03/07/24 03/08/24 03/08/24 18:59 06:59 18:59 Intake Total 800 600 Balance 800 600 Intake: IV 600 Piperacillin-Tazobactam 3 100 .375 gm In Sodium Chloride 0.9% 100 ml @ 25 mls/hr IVPB Q8HR [facility] Rx# :[id number] methylPREDNISolone SOD 500 SUCCIN 750 mg In Sodium Chloride 0.9% 250 ml @ 250 mls/hr IVPB Q6HR [facility] Rx#:[id number] Oral 800 Other: Voiding Method Toilet Toilet Toilet # Voids 3 3 - Labs CBC & Chem 7: 03/05/24 07:09 03/05/24 07:09
--- NOTE | 2024-03-09 14:30 | P.PN ---
Subjective Progress Note Date: 03/09/24 CHIEF COMPLAINT: Abdominal pain HISTORY OF PRESENT ILLNESS: The patient is a 38-year-old male with a complicated surgical history of intra-abdominal infections including possible Crohn's disease undiagnosed. Patient was pending for transfer to [facility] however due to expiration of certification, patient is to be recertified for transfer from Sunday. Otherwise, patient reports improvement of epigastric pressure including left upper quadrant abdominal pain. ROS: No reports of nausea and vomiting. No fevers or chills. No new chest pain. No productive sputum PHYSICAL EXAM: VITAL SIGNS: Reviewed CONSTITUTIONAL: Well developed and in no acute distress. EYES: Conjuctivae without sclera icterus. Extraocular movements grossly intact. HEAD, EARS, NOSE, THROAT: Moist buccal mucosa. Head is atraumatic, normocephalic. Hears conversational speech. No nasal drainage. RESPIRATORY: Non-labored respirations and equal bilateral excursions. CARDIOVASCULAR: Palpable 2+ radial pulses. ABDOMEN: Well-healed lower midline incision. MUSCULOSKELETAL: No gross deformity of the lower extremities noted. No clubbing. No cyanosis. SKIN: Good skin turgor. Well perfused. NEUROLOGIC: Cranial nerves II through XII grossly intact. No focal or lateralizing signs. PSYCH: Appropriate affect. Alert and oriented to person, place and time. CLINICAL LABS: Reviewed. ASSESSMENT: 1. Abdominal pain suspected Crohn's disease with exacerbation 2. Anemia, chronic PLAN: 1. At this time, patient is pending recertification for possible [facility] transfer including gastroenterology for assessment for Crohn's disease. Objective - Vital Signs Vital signs: Vital Signs Temp 97.6 F 03/09/24 06:35 Pulse 63 03/09/24 06:35 Resp 17 03/09/24 06:35 BP 153/84 03/09/24 06:35 Pulse Ox 97 03/09/24 06:35 FiO2 Intake & Output 03/08/24 03/09/24 03/09/24 18:59 06:59 18:59 Intake Total 200 Balance 200 Intake: Oral 200 Other: Voiding Method Toilet # Voids 3 3 # Bowel Movements 1 - Labs CBC & Chem 7: 03/05/24 07:09 03/05/24 07:09
[2024-03-10 11:02] LABS: Basophils % (A) 0 %; Eosinophils % (A) 0 %; HCT 39.2 % (39.0-53.0); HGB 12.8 gm/dL (13.0-17.5); Lymphocytes # (A) 0.4 k/uL (1.0-4.8); Lymphocytes % (A) 3 %; MCH 26.6 pg (25.0-35.0); MCHC 32.8 g/dL (31.0-37.0); MCV 81.2 fL (80.0-100.0); Mean Platelet Volume 7.9; Monocytes # (A) 0.3 k/uL (0-1.0); Monocytes % (A) 3 %; Neutrophils # (A) 12.4 k/uL (1.3-7.7); Neutrophils % (A) 94 %; Platelet Count 257 k/uL (150-450); RBC 4.83 m/uL (4.30-5.90); RDW 15.8 % (11.5-15.5); WBC 13.2 k/uL (3.8-10.6)
[2024-03-10 11:20] LABS: ALT 31 U/L (4-49); AST 23 U/L (17-59); African American GFR (CKD) >90 (>60 ml/min/1.73 sqM); Albumin 3.7 g/dL (3.5-5.0); Albumin/Globulin Ratio 1.8; Alkaline Phosphatase 54 U/L (38-126); Anion Gap 6 mmol/L; Blood Urea Nitrogen 24 mg/dL (9-20); C Reactive Protein <0.5 mg/dL (<1.0); Calcium 8.5 mg/dL (8.4-10.2); Carbon Dioxide 35 mmol/L (22-30); Chloride 96 mmol/L (98-107); Globulin 2.1 g/dL; Glucose 144 mg/dL (74-99); Non-African American GFR(CKD) >90 (>60 ml/min/1.73 sqM); Potassium 3.9 mmol/L (3.5-5.1); Sodium 137 mmol/L (137-145); Total Bilirubin 0.6 mg/dL (0.2-1.3); Total Protein 5.8 g/dL (6.3-8.2)
--- NOTE | 2024-03-10 13:09 | P.CONS ---
History of Present Illness - Reason for Consult Consult date: 03/10/24 Crohn's Requesting physician: Alba Lees - Chief Complaint Abdominal pain - History of Present Illness This is a pleasant 38-year-old male with chronic abdominal pain for last 10 to 15 years who was admitted 11 days ago for continued abdominal discomfort, bloating and pressure. He has been followed by general surgery. On admission he had a CT of the abdomen pelvis both with and without contrast that was reporting concerns for questionable extraluminal pocket of air within pelvis with possible [place] enteric fistula/small pocket of free air. Patient had been seen in the past by general surgery and underwent exploratory laparotomy and small bowel resection in October [address] Santillan for questionable internal hernia however was diagnosed with small bowel inflammation and underwent a small bowel resection. Biopsy reported small bowel tissue with active enteritis, submucosal edema and serosal fibrous adhesions, and abundant acute serositis. Margins benign and viable. During this hospitalization general surgery had recommended a GI consult however there was no GI available in the hospital at that time. We are seeing the patient for the first time today. General surgery had initially been recommending a transfer to tertiary center for further evaluation for possible colorectal specialist and medical coder. Patient denies any history of Crohn's disease or family history of Crohn's disease. He states that he has had ongoing problems with his stomach for last 10 to 15 years with abdominal bloating and distention. States that most of his pain occurs after he eats. No specific foods but he was changing his diet and eliminating alcohol. Apparently patient has been going through divorce and lost his insurance back in October and currently is uninsured. He has not had any follow-up recently with any specialist. He had seen Dr. Sibley multiple times and has been hospitalized multiple times for abdominal pain. Gastroenterology consulted for Crohn's disease. No bloody diarrhea. States he used to have chronic diarrhea and would go several times a day up until September of this past year. States normal bowel movements now. Abdominal pain more of a bloating and pressure feeling. No previous EGD or colonoscopy. Denies any previous history of celiac disease or testing. No history of food allergies that he is aware of. Patient had no leukocytosis on admission. Review of Systems REVIEW OF SYSTEMS: CARDIOPULMONARY: No chest pain or shortness of breath. Gastrointestinal: Chronic abdominal pain/pressure/bloating. No nausea or vomiting. No hematemesis, coffee-ground emesis. No rectal bleeding, or melena. GENITOURINARY: No dysuria or hematuria. MUSCULOSKELETAL: Reports normal range of motion. SKIN: No rashes. No jaundice. ENDOCRINE: No chills, fevers. No excessive weight gain or loss. No polydipsia or polyuria. PSYCHIATRIC: Unremarkable. NEUROLOGY: No change in mental status. Denies dizziness, headache. ENT: Vision unremarkable. CONSTITUTIONAL: No recent weight loss. No fever, chills, night sweats. Past Medical History Past Medical History: Osteoarthritis (OA) Additional Past Medical History / Comment(s): Guillian barre syndrome, chronic back pain, October 2023 bowel resection, complicated by abscess, sent home with IV abx. History of Any Multi-Drug Resistant Organisms: None Reported Past Surgical History: Bowel Resection, Orthopedic Surgery Additional Past Surgical History / Comment(s): kidney polyps removed in left kidney, lt shoulder Past Anesthesia/Blood Transfusion Reactions: No Reported Reaction Past Psychological History: No Psychological Hx Reported Smoking Status: Never smoker Past Alcohol Use History: Rare Past Drug Use History: None Reported Medications and Allergies Home Medications Medication Instructions Recorded Confirmed Type Losartan Potassium [Cozaar] 25 mg PO HS 12/27/21 02/28/24 History Allergies Allergy/AdvReac Type Severity Reaction Status Date / Time meperidine [From Demerol] Allergy Rash/Hives Verified 02/28/24 06:50 morphine Allergy Rash/Hives Verified 02/28/24 06:50 Physical Exam Vitals: Vital Signs Temp Pulse Resp BP Pulse Ox 03/10/24 06:47 98.1 F 60 17 134/76 98 03/10/24 01:29 97.7 F 63 17 132/74 96 03/09/24 21:41 18 03/09/24 20:06 98.1 F 73 17 133/81 98 03/09/24 14:00 98.0 F 70 16 138/66 98 Intake and Output 03/09/24 03/10/24 03/10/24 22:59 06:59 14:59 Intake Total 100 Balance 100 Intake: Oral 100 Other: Voiding Method Toilet Toilet # Voids 5 2 # Bowel Movements 1 General appearance: The patient is alert, oriented, appears in no acute distress. HET: Head is normocephalic and atraumatic. Conjunctiva pink. Sclera anicteric. Neck: Supple without lymphadenopathy. Trachea midline. Heart: Regular. Lungs: Equal expansion, normal respiratory effort. Abdomen: Soft, mild diffuse tenderness, nondistended. Skin: No rashes. No jaundice. Extremities: Normal skin color and turgor. No pedal edema. Neurological: No focal deficits. Alert and oriented x3. Results CBC & Chem 7: 03/10/24 10:20 03/10/24 10:20 Comments: Chest CT reports generalized anasarca changes along with trace bilateral pleural effusions and mild perihepatic ascites fluid. There is also enlargement of the right and left pulmonary arteries suggesting underlying pulmonary arterial hypertension. Consider CHF/fluid overload state. Patchy opacity posterior right lung base could represent atelectasis or developing pneumonia. Correlate with patient's symptoms. Second area of patchy groundglass anterior left upper lobe, possible patchy pulmonary edema versus pneumonia. Mild aneurysm of ascending aorta at 4.3 cm versus 3.6 [address] [place] [address] abdomen pelvis without contrast reports small questionable extraluminal pocket of air with in the pelvis is stable. Could not exclude a [place] enteric fistula/small pocket of free air. CT abdomen pelvis with contrast reports persistent extraluminal pocket of air in the lower mid abdomen that shows extension possibly from the superior wall of the distal sigmoid colon up to the right lateral wall of the mid sigmoid colon. Some minimal inflammation is suggested here. Consider maturation of a colocolonic/enterocolonic fistula here. The previous colonic wall thickening has resolved. No doron acute diverticulitis seen. Small fatty medical hernia slightly larger at 2.7 cm wide versus 1.5 cm previously. Assessment and Plan (1) Abdominal pain Narrative/Plan: 38-year-old male with chronic abdominal pain pressure and bloating for last 10 to 15 years hospitalized multiple times with multiple imaging. Has been seen multiple times by general surgery and underwent exploratory lap and small bowel resection in September of this year. No previous EGD or colonoscopy. Gastroenterology being consulted for possible Crohn's however small bowel pathology did not have evidence of Crohn's disease. Abdominal pain may be secondary to IBS. He was started on dicyclomine with improvement in his symptoms since Sunday. During this hospitalization for last 11 days he has been on high-dose steroids. CRP is less than 0.5, sed rate is currently pending. Will obtain celiac panel. Will proceed with colonoscopy with biopsy. Current Visit: No Status: Acute Code(s): R10.9 - UNSPECIFIED ABDOMINAL PAIN SNOMED Code(s): 60012967 Plan: 1. Continue symptomatic and supportive care 2. Clear liquid diet, n.p.o. after midnight 3. CBC, CMP, CRP, sed rate, celiac panel ordered 4. Continue dicyclomine as ordered 5. Solu-Medrol decreased to 20 mg IV every 8 hours. Likely will be discontinued 6. Will plan for colonoscopy tomorrow 7. Plan discussed with general surgery. Continue with recommendations from general surgery Thank you for this consultation, we will continue to follow. Dr. Leatha Barber I agree with the dictator's note, documented as a scribe by Maryana Pena.
--- NOTE | 2024-03-10 13:31 | P.PN ---
Subjective Progress Note Date: 03/10/24 CHIEF COMPLAINT: abdominal pain HISTORY OF PRESENT ILLNESS: Patient continues to report pain after eating. Having regular bowel movements. Patient started Bentyl on Sunday. Afebrile. WBC is up at 13.2. CRP is less than 0.5 PHYSICAL EXAM: VITAL SIGNS: Reviewed. GENERAL: Well-developed in no acute distress. ABDOMEN: Soft. Nontender NEUROLOGIC: Alert and oriented. Cranial nerves II through XII grossly intact. ASSESSMENT: 1. Crohn's exacerbation 2. enterocolonic fistula 3. History of exploratory laparotomy with small bowel resection on 10/22/2023 for enteritis 4. Possible aspiration pneumonia PLAN: -Patient to be seen by GI service. They are planning a colonoscopy tomorrow. -Steroids per GI service -Continue antibiotics -Continue Bentyl -Encourage patient to ambulate Physician Medical Records Field Technician note has been reviewed by physician. Signing provider agrees with the documented findings, assessment, and plan of care. Objective - Vital Signs Vital signs: Vital Signs Temp 98.1 F 03/10/24 06:47 Pulse 60 03/10/24 06:47 Resp 17 03/10/24 06:47 BP 134/76 03/10/24 06:47 Pulse Ox 98 03/10/24 06:47 FiO2 Intake & Output 03/09/24 03/10/24 03/10/24 18:59 06:59 18:59 Intake Total 200 100 Balance 200 100 Intake: Oral 200 100 Other: Voiding Method Toilet Toilet # Voids 5 2 # Bowel Movements 1 - Labs CBC & Chem 7: 03/10/24 10:20 03/10/24 10:20 Labs: Abnormal Lab Results - Last 24 Hours (Table) 03/10/24 03/10/24 Range/Units 10:20 10:20 WBC 13.2 H (3.8-10.6) k/uL Hgb 12.8 L (13.0-17.5) gm/dL RDW 15.8 H (11.5-15.5) % Neutrophils # 12.4 H (1.3-7.7) k/uL Lymphocytes # 0.4 L (1.0-4.8) k/uL Chloride 96 L (98-107) mmol/L Carbon Dioxide 35 H (22-30) mmol/L BUN 24 H (9-20) mg/dL Glucose 144 H (74-99) mg/dL Total Protein 5.8 L (6.3-8.2) g/dL
--- NOTE | 2024-03-10 14:46 | P.PN ---
Subjective Progress Note Date: 03/10/24 - History of Present Illness This is a 38-year-old obese gentleman with past medical history significant for recent exploratory laparotomy with small bowel resection secondary to small bowel enteritis, diverticular abscess in the mid pelvis not drainable per interventional radiology service- October 2023,chronic back pain, Guillian Norman syndrome, osteoarthritis, nicotine dependence-chews, alcohol use and multiple other medical issues reports worsening abdominal pain over the last several weeks, weight gain and did not follow-up with PCP as he had no insurance. Patient's weight is actually decreased, in October patient was 118 kg, currently 106 kg. Denies nausea vomiting or diarrhea. Denies change in bowel habits. Spontaneous voiding without difficulty. Denies chest pain, palpitations or shortness of breath. 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 Previous colonic wall thickening has resolv ed no doron acute diverticulitis seen. Small fatty umbilical hernia slightly larger at 2.7 versus 1.5 cm previously. March 01, 2024: Patient seen and evaluated today. He is feeling better. Surge ry is planning on keeping him another day. He has suspected Crohn's disease with fistula per surgery. March 02, 2024: Patient remains uncomfortable and his bed. He is up ambulating regularly. He has hydromorphone ordered for pain. He is on Solu- Medrol for suspected Crohn's disease. He denies any chest pains pressures or shortness of breath this time. We discussed DVT prophylaxis since he is in the hospital. Patient has a history of hypertension and previously takes losartan. Currently vitals are stable, blood pressure is normal. No laboratory studies are pending. March 03, 2024: Patient is sitting on the couch in his room today. He is able to ambulate. He has not needed pain medication for the past 18 hours. He remains on Zosyn, and Solu-Medrol for suspected Crohn's disease. He denies any chest pains pressure shortness of breath nausea or vomiting. 03/04/2024 continues on Zosyn and steroids, complains of upper abdominal pressure. Reports 2 soft bowel movements this morning. Ambulating, tolerating exertion well. Denies chest pain, palpitations or shortness of breath. Afebrile. 03/05/2024 hypertensive, reports mild depression over prolonged abdominal pain .Norvasc and Zoloft added to med regimen .continues to complain of crampy abdominal pressure after eating accompanied by nausea-states unchanged. Continues on IV steroids and Zosyn. Afebrile. 03/06/2024 evaluated by pulmonary yesterday for hemoptysis, chest CT completed, results pending. Denies further hemoptysis. continues on Zosyn and steroids with symptoms unchanged; denies worsening ,denies improving. Neurosurgery initiated transfer yesterday to [facility] for further GI evaluation with bed pending. Denies chest pain, palpitations or shortness of breath. Maintaining O2 sats in the 90s on room air. Afebrile, normal WBC. 03/07/2024 no overnight events. Consuming 75 to 100% of diet-documented. Reports unchanged cramping and sharp abdominal pain after eating-not worsened. Denies nausea or vomiting. Reports normal bowel movements-nonbloody. No hemoptysis, no sore throat, no cough congestion chills or fevers. Continues on steroids and antibiotics as per general surgery. CT reported possible aspiration pneumonia, asymptomatic. Patient continues on Zosyn. Denies shortness of breath, maintaining O2 sats in the high 90s on room air. Awaiting transfer to [facility]. 03/10/2024 Denies worsening of abdominal pain, reports unchanged-states it continues to occurs after eating. Denies constipation reports regular bowel movements. Afebrile, WBC 13.2, CRP < 0.5. Maintained on IV steroids, Bentyl and Zosyn. Denies chest pain, palpitations or shortness of breath. Maintaining O2 sats in the high 90s on room air. Objective - Vital Signs Vital signs: Vital Signs Temp 97.8 F 03/10/24 12:58 Pulse 67 03/10/24 12:58 Resp 16 03/10/24 12:58 BP 147/86 03/10/24 12:58 Pulse Ox 96 03/10/24 12:58 FiO2 Intake & Output 03/09/24 03/10/24 03/10/24 18:59 06:59 18:59 Intake Total 200 100 Balance 200 100 Intake: Oral 200 100 Other: Voiding Method Toilet Toilet # Voids 5 2 # Bowel Movements 1 - Exam General: Alert and oriented x 3, sitting up in bed, no acute distress. Neck: supple, no JVD. Cardiovascular: S1S2 is normal, regular rate and rhythm. Respiratory: Unlabored, equal air entry, clear to auscultation. Gastrointestinal: Soft, nondistended, nontender, positive bowel sounds Musculoskeletal: no pedal edema,no calf tenderness. Neurological: CN II-XII intact, strength and sensation grossly intact. Skin: Skin is warm and dry,no rashes noted. - Labs CBC & Chem 7: 03/10/24 10:20 03/10/24 10:20 Labs: Abnormal Lab Results - Last 24 Hours (Table) 03/10/24 03/10/24 Range/Units 10:20 10:20 WBC 13.2 H (3.8-10.6) k/uL Hgb 12.8 L (13.0-17.5) gm/dL RDW 15.8 H (11.5-15.5) % Neutrophils # 12.4 H (1.3-7.7) k/uL Lymphocytes # 0.4 L (1.0-4.8) k/uL Chloride 96 L (98-107) mmol/L Carbon Dioxide 35 H (22-30) mmol/L BUN 24 H (9-20) mg/dL Glucose 144 H (74-99) mg/dL Total Protein 5.8 L (6.3-8.2) g/dL Assessment and Plan Assessment: Abdominal pain worsening over the last several weeks, in a patient with recent exploratory laparotomy with small bowel resection secondary to small bowel enteritis, diverticular abscess in the mid pelvis not drainable per interventional radiology service- October 2023, CT suggest coloenteric fistula, small pocket of free air. Suspected Crohn's disease per general surgery. Guillian Norman syndrome Chronic back pain Osteoarthritis Morbid obesity, BMI 37.3 Alcohol use Nicotine dependence, chews Hemoptysis, resolved. Chest CT reported patchy opacity posterior right lung base and patchy groundglass anterior left upper lobe,possible aspiration pneu monia Ascending aortic aneurysm 4.3 cm, further monitoring outpatient Plan: Continue on current medication regimen ,monitoring and symptomatic treatment. Continue on steroids and antibiotics .GI will be evaluating patient today, recommendations pending. smoking sensation reinforced. Alcohol abstinence reinforced.Increase ambulation as tolerated. The impression and plan of care has been dictated as directed. : I performed a history and examination of this patient, discussed the same with the dictator. I agree with the dictator's note ,documented as a scribe. Any additional findings or plans will be noted.
[2024-03-10 15:44] LABS: Erythrocyte Sedimentation Rate 2 mm/Hr (0-15)
[2024-03-10] MEDS: methylPREDNISolone SOD SUCCI 40 MG/ML 1 ML VIAL IV SCH (17:39)
[2024-03-10] MEDS: PEG 3350 (236 GM/BTL) + LYTES 4,000 ML BOTTLE PO ONE (18:12)
[2024-03-11 08:28] LABS: Basophils # (A) 0.01 X 10*3/uL (0.00-0.10); Basophils % (A) 0.1 %; Eosinophils # (A) 0 X 10*3/uL (0.04-0.35); Eosinophils % (A) 0 %; HCT 33.1 % (39.6-50.0); HGB 11.2 g/dL (13.0-17.0); Lymphocytes # (A) 0.21 X 10*3/uL (0.90-5.00); Lymphocytes % (A) 1.8 %; MCH 26.4 pg (27.0-32.0); MCHC 33.8 g/dL (32.0-37.0); MCV 77.9 FL (80.0-97.0); Mean Platelet Volume 10.2 FL (9.5-12.2); Monocytes # (A) 0.45 X 10*3/uL (0.20-1.00); Monocytes % (A) 3.8 %; NRBC Per 100 WBC 0 X 10*3/uL (0.00-0.01); Neutrophils # (A) 10.97 X 10*3/uL (1.80-7.70); Neutrophils % (A) 93.3 %; Platelet Count 242 X 10*3/uL (140-440); RBC 4.25 X 10*6/uL (4.40-5.60); RDW 16.1 % (11.5-14.5); WBC 11.76 X 10*3/uL (4.50-10.00)
--- NOTE | 2024-03-11 11:17 | P.PN ---
Subjective Progress Note Date: 03/11/24 CHIEF COMPLAINT: abdominal pain HISTORY OF PRESENT ILLNESS: Patient complains of gas pains after the GoLyt[employer] bowel prep. He is scheduled for colonoscopy with GI service today. Afebrile. WBC is down from 13.2-11.76 hemoglobin 11.2 PHYSICAL EXAM: VITAL SIGNS: Reviewed. GENERAL: no acute distress. ABDOMEN: Soft. Nontender NEUROLOGIC: Alert and oriented. Cranial nerves II through XII grossly intact. ASSESSMENT: 1. Possible Crohn's exacerbation 2. enterocolonic fistula 3. History of exploratory laparotomy with small bowel resection on 10/22/2023 for enteritis 4. Possible aspiration pneumonia PLAN: -Patient scheduled for colonoscopy with GI service today Physician [employer] note has been reviewed by physician. Signing provider agrees with the documented findings, assessment, and plan of care. Objective - Vital Signs Vital signs: Vital Signs Temp 98.1 F 03/11/24 06:57 Pulse 64 03/11/24 08:00 Resp 17 03/11/24 08:00 BP 114/73 03/11/24 06:57 Pulse Ox 94 L 03/11/24 06:57 FiO2 Intake & Output 03/10/24 03/11/24 03/11/24 18:59 06:59 18:59 Other: Voiding Method Toilet Toilet # Voids 4 - Labs CBC & Chem 7: 03/11/24 04:20 03/10/24 10:20 Labs: Abnormal Lab Results - Last 24 Hours (Table) 03/10/24 03/11/24 Range/Units 10:20 04:20 WBC 11.76 H (4.50-10.00) X 10*3/uL RBC 4.25 L (4.40-5.60) X 10*6/uL Hgb 11.2 L (13.0-17.0) g/dL Hct 33.1 L (39.6-50.0) % MCV 77.9 L (80.0-97.0) FL MCH 26.4 L (27.0-32.0) pg RDW 16.1 H (11.5-14.5) % Immature Gran # 0.12 H (0.00-0.04) X 10*3/uL Neutrophils # 10.97 H (1.80-7.70) X 10*3/uL Lymphocytes # 0.21 L (0.90-5.00) X 10*3/uL Eosinophils # 0 L (0.04-0.35) X 10*3/uL Chloride 96 L (98-107) mmol/L Carbon Dioxide 35 H (22-30) mmol/L BUN 24 H (9-20) mg/dL Glucose 144 H (74-99) mg/dL Total Protein 5.8 L (6.3-8.2) g/dL
[2024-03-11] MEDS ORDERED: LIDOCAINE 1% INJ 10MG/ML (20 ML MDV) ONE (13:26)
[2024-03-11] MEDS: IV FLUID CONTINUATION 1,000 ML IV ONE (13:26)
[2024-03-11] MEDS ORDERED: PROPOFOL 10 MG/ML 20 ML VIAL IV ONE (13:26)
[2024-03-11] MEDS: SODIUM CHLORIDE 0.9% 500 ML 500 ML IV ONE (13:26)
--- NOTE | 2024-03-11 14:18 | P.PCN ---
Date of Procedure: 03/11/24 Procedure(s) Performed: BRIEF HISTORY: Patient is a 38-year-old pleasant white male to the hospital with severe abdominal pain and change in bowel habits for the last several weeks duration. He underwent small bowel resection by Dr. Sibley in August 2023 for small bowel obstruction and biopsies revealed evidence of enteritis. At the time of admission to the hospital he had a CT of the abdomen pelvis done that showed possible diverticulitis with improved colonic fistula and was treated with broad-spectrum antibiotics. His symptoms are gradually improving. Because of clinical suspicion for Crohn's disease GI has been consulted. Patient is scheduled for colonoscopy to evaluate further. PREOPERATIVE DIAGNOSIS: Colonoscopy with biopsy. IV sedation per Anesthesia. PROCEDURE: After informed consent was obtained, the patient, was brought into the endoscopy unit. IV sedation was administered by Anesthesia under continuous monitoring. Digital rectal examination was normal. Initially the Olympus CF-160 flexible video colonoscope was then inserted in the rectum, gradually advanced into the cecum without any difficulty. Careful examination was performed as the scope was gradually being withdrawn. Ileocecal valve and the appendiceal orifice were visualized and appeared normal. Prep was good. Terminal ileum was intubated and 10 cm visualized and appeared completely normal. Biopsies were done from the terminal ileum. Mucosa of the cecum, ascending colon, transverse colon, descending colon, sigmoid colon, and rectum appeared normal. Sigmoid diverticulosis seen. Random biopsies were done from the ascending and descending colon. Retroflexion was performed in the rectum and small internal were seen. The patient tolerated the procedure well. IMPRESSION: Normal-appearing terminal ileum with no evidence of Crohn's disease Scattered sigmoid diverticulosis No evidence of colitis or colorectal neoplasia small internal hemorrhoids RECOMMENDATIONS: Findings of this examination were discussed with the patient. At this time we will await biopsy results. Advance diet as tolerated..
--- NOTE | 2024-03-11 14:41 | P.PN ---
Subjective Progress Note Date: 03/11/24 - History of Present Illness This is a 38-year-old obese gentleman with past medical history significant for recent exploratory laparotomy with small bowel resection secondary to small bowel enteritis, diverticular abscess in the mid pelvis not drainable per interventional radiology service- October 2023,chronic back pain, Guillian Norman syndrome, osteoarthritis, nicotine dependence-chews, alcohol use and multiple other medical issues reports worsening abdominal pain over the last several weeks, weight gain and did not follow-up with PCP as he had no insurance. Patient's weight is actually decreased, in October patient was 118 kg, currently 106 kg. Denies nausea vomiting or diarrhea. Denies change in bowel habits. Spontaneous voiding without difficulty. Denies chest pain, palpitations or shortness of breath. 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 Previous colonic wall thickening has resolv ed no doron acute diverticulitis seen. Small fatty umbilical hernia slightly larger at 2.7 versus 1.5 cm previously. March 01, 2024: Patient seen and evaluated today. He is feeling better. Surge ry is planning on keeping him another day. He has suspected Crohn's disease with fistula per surgery. March 02, 2024: Patient remains uncomfortable and his bed. He is up ambulating regularly. He has hydromorphone ordered for pain. He is on Solu- Medrol for suspected Crohn's disease. He denies any chest pains pressures or shortness of breath this time. We discussed DVT prophylaxis since he is in the hospital. Patient has a history of hypertension and previously takes losartan. Currently vitals are stable, blood pressure is normal. No laboratory studies are pending. March 03, 2024: Patient is sitting on the couch in his room today. He is able to ambulate. He has not needed pain medication for the past 18 hours. He remains on Zosyn, and Solu-Medrol for suspected Crohn's disease. He denies any chest pains pressure shortness of breath nausea or vomiting. 03/04/2024 continues on Zosyn and steroids, complains of upper abdominal pressure. Reports 2 soft bowel movements this morning. Ambulating, tolerating exertion well. Denies chest pain, palpitations or shortness of breath. Afebrile. 03/05/2024 hypertensive, reports mild depression over prolonged abdominal pain .Norvasc and Zoloft added to med regimen .continues to complain of crampy abdominal pressure after eating accompanied by nausea-states unchanged. Continues on IV steroids and Zosyn. Afebrile. 03/06/2024 evaluated by pulmonary yesterday for hemoptysis, chest CT completed, results pending. Denies further hemoptysis. continues on Zosyn and steroids with symptoms unchanged; denies worsening ,denies improving. Neurosurgery initiated transfer yesterday to [facility] for further GI evaluation with bed pending. Denies chest pain, palpitations or shortness of breath. Maintaining O2 sats in the 90s on room air. Afebrile, normal WBC. 03/07/2024 no overnight events. Consuming 75 to 100% of diet-documented. Reports unchanged cramping and sharp abdominal pain after eating-not worsened. Denies nausea or vomiting. Reports normal bowel movements-nonbloody. No hemoptysis, no sore throat, no cough congestion chills or fevers. Continues on steroids and antibiotics as per general surgery. CT reported possible aspiration pneumonia, asymptomatic. Patient continues on Zosyn. Denies shortness of breath, maintaining O2 sats in the high 90s on room air. Awaiting transfer to [facility]. 03/10/2024 Denies worsening of abdominal pain, reports unchanged-states it continues to occurs after eating. Denies constipation reports regular bowel movements. Afebrile, WBC 13.2, CRP < 0.5. Maintained on IV steroids, Bentyl and Zosyn. Denies chest pain, palpitations or shortness of breath. Maintaining O2 sats in the high 90s on room air. 03/11/2024 NPO, for colonoscopy this afternoon. Reports gas pains. Vital signs stable. Denies chest pain, palpitations or shortness of breath. Objective - Vital Signs Vital signs: Vital Signs Temp 99 F 03/11/24 12:46 Pulse 62 03/11/24 12:46 Resp 16 03/11/24 12:46 BP 113/79 03/11/24 12:46 Pulse Ox 95 03/11/24 12:46 FiO2 Intake & Output 03/10/24 03/11/24 03/11/24 18:59 06:59 18:59 Intake Total 350 Balance 350 Intake: IV 350 Other: Voiding Method Toilet Toilet # Voids 4 - Exam General: Alert and oriented x 3, sitting up in bed, no acute distress. Cardiovascular: S1S2 is normal, regular rate and rhythm. Respiratory: Unlabored, equal air entry, clear to auscultation. Gastrointestinal: Soft, nondistended, nontender, positive bowel sounds EXTREMITIES: no pedal edema,no calf tenderness. Neurological: CN II-XII intact, strength and sensation grossly intact. Skin: Skin is warm and dry,no rashes noted. - Labs CBC & Chem 7: 03/11/24 04:20 03/10/24 10:20 Labs: Abnormal Lab Results - Last 24 Hours (Table) 03/11/24 Range/Units 04:20 WBC 11.76 H (4.50-10.00) X 10*3/uL RBC 4.25 L (4.40-5.60) X 10*6/uL Hgb 11.2 L (13.0-17.0) g/dL Hct 33.1 L (39.6-50.0) % MCV 77.9 L (80.0-97.0) FL MCH 26.4 L (27.0-32.0) pg RDW 16.1 H (11.5-14.5) % Immature Gran # 0.12 H (0.00-0.04) X 10*3/uL Neutrophils # 10.97 H (1.80-7.70) X 10*3/uL Lymphocytes # 0.21 L (0.90-5.00) X 10*3/uL Eosinophils # 0 L (0.04-0.35) X 10*3/uL Assessment and Plan Assessment: Abdominal pain worsening over the last several weeks, in a patient with recent exploratory laparotomy with small bowel resection secondary to small bowel enteritis, diverticular abscess in the mid pelvis not drainable per in terventional radiology service- October 2023, CT suggest coloenteric fistula, small pocket of free air. Suspected Crohn's disease per general surgery. Guillian Norman syndrome Chronic back pain Osteoarthritis Morbid obesity, BMI 37.3 Alcohol use Nicotine dependence, chews Hemoptysis, resolved. Chest CT reported patchy opacity posterior right lung base and patchy groundglass anterior left upper lobe,possible aspiration pneumonia Ascending aortic aneurysm 4.3 cm, further monitoring outpatient Plan: Continue on current medication regimen ,monitoring and symptomatic treatment. NPO, colonoscopy pending. continue on steroids and antibiotics smoking sensation and alcohol abstinence reinforced. Follow-up with PCP in 1 week. The impression and plan of care has been dictated as directed. : I performed a history and examination of this patient, discussed the same with the dictator. I agree with the dictator's note ,documented as a scribe. Any additional findings or plans will be noted.
[2024-03-11 16:15] LABS: Gliadin AB IgA, Deaminated Negative (Negative); Gliadin AB IgA, Unit 0.5 U/mL; Gliadin AB IgG, Deaminated Negative (Negative); Gliadin AB IgG, Unit <0.4 U/mL
[2024-03-12 07:57] VITALS: RESP 17
--- NOTE | 2024-03-12 12:46 | P.PN ---
Subjective Progress Note Date: 03/12/24 Principal diagnosis: Abdominal pain This is a pleasant 38-year-old male with chronic abdominal pain for last 10 to 15 years who was admitted 11 days ago for continued abdominal discomfort, bloating and pressure. He has been followed by general surgery. On admission he had a CT of the abdomen pelvis both with and without contrast that was reporting concerns for questionable extraluminal pocket of air within pelvis with possible [place] enteric fistula/small pocket of free air. Patient had been seen in the past by general surgery and underwent exploratory laparotomy and small bowel resection in October [address] Santillan for questionable internal hernia however was diagnosed with small bowel inflammation and underwent a small bowel resection. Biopsy reported small bowel tissue with active enteritis, submucosal edema and serosal fibrous adhesions, and abundant acute serositis. Margins benign and viable. During this hospitalization general surgery had recommended a GI consult however there was no GI available in the hospital at that time. We are seeing the patient for the first time today. General surgery had initially been recommending a transfer to tertiary center for further evaluation for possible colorectal specialist and fashion show director. Patient denies any history of Crohn's disease or family history of Crohn's disease. He states that he has had ongoing problems with his stomach for last 10 to 15 years with abdominal bloating and distention. States that most of his pain occurs after he eats. No specific foods but he was changing his diet and eliminating alcohol. Apparently patient has been going through divorce and lost his insurance back in October and currently is uninsured. He has not had any follow-up recently with any specialist. He had seen Dr. Sibley multiple times and has been hospitalized multiple times for abdominal pain. Gastroenterology consulted for Crohn's disease. No bloody diarrhea. States he used to have chronic diarrhea and would go several times a day up until September of this past year. States normal bowel movements now. Abdominal pain more of a bloating and pressure feeling. No previous EGD or colonoscopy. Denies any previous history of celiac disease or testing. No history of food allergies that he is aware of. Patient had no leukocytosis on admission. 03/12/2024 Patient seen and examined today as a follow-up. Yesterday underwent colonoscopy without any evidence of Crohn's disease, scattered sigmoid diverticulosis no evidence of colitis or colorectal neoplasia, small internal hemorrhoids. Through the night GI was called that patient had been complaining of abdominal pain. This morning he states abdominal pain better he believes it was all gas pain. He has been able to expel some gas. He is tolerating a regular diet. States dicyclomine seems to be helping. Objective - Vital Signs Vital signs: Vital Signs Temp 98.3 F 03/12/24 07:24 Pulse 78 03/12/24 07:24 Resp 17 03/12/24 07:24 BP 114/63 03/12/24 07:24 Pulse Ox 98 03/12/24 07:24 FiO2 Intake & Output 03/11/24 03/12/24 03/12/24 18:59 06:59 18:59 Intake Total 350 Balance 350 Intake: IV 350 Other: Voiding Method Toilet Toilet # Voids 4 4 # Bowel Movements 4 - Exam General appearance: The patient is alert, oriented, appears in no acute distress. HET: Head is normocephalic and atraumatic. Conjunctiva pink. Sclera anicteric. Neck: Supple without lymphadenopathy. Abdomen: Soft, nontender, nondistended with bowel sounds. No guarding or ri gidity. Extremities: Normal skin color and turgor. No pedal edema Skin: No rashes, no jaundice Neurological: No focal deficits. Alert and oriented. - Labs CBC & Chem 7: 03/11/24 04:20 03/10/24 10:20 Assessment and Plan (1) Abdominal pain Narrative/Plan: 38-year-old male with chronic abdominal pain pressure and bloating for last 10 to 15 years hospitalized multiple times with multiple imaging. Has been seen multiple times by general surgery and underwent exploratory lap and small bowel resection in September of this year. No previous EGD or colonoscopy. Gastroenterology being consulted for possible Crohn's however small bowel pathology did not have evidence of Crohn's disease. Abdominal pain may be secondary to IBS. He was started on dicyclomine with improvement in his symptoms since Sunday. During this hospitalization for last 11 days he has been on high-dose steroids. CRP is less than 0.5, sed rate is currently pending. Will obtain celiac panel. Will proceed with colonoscopy with biopsy. Colonoscopy completed with no evidence of Crohn's disease, scattered diverticulosis noted and small internal hemorrhoids. Due to patient's overnight complaints of abdominal pain will plan to order a small bowel series. Biopsies pending Current Visit: No Status: Acute Code(s): R10.9 - UNSPECIFIED ABDOMINAL PAIN SNOMED Code(s): 94610914 Plan: 1. Continue symptomatic and supportive care 2. Continue diet as tolerated 3. Small bowel series ordered and reviewed. Normal study. 4. Continue dicyclomine as ordered 5. Discontinue steroids 6. Continue oral antibiotics for 4 to 5 days outpatient 7. Plan discussed with general surgery. Continue with recommendations from general surgery Thank you for this consultation, patient is cleared from gastroenterology for discharge. May follow-up in the outpatient setting. Dr. Leatha Barber I agree with the dictator's note, documented as a scribe by Maryana Pena.
--- NOTE | 2024-03-12 12:48 | P.PN ---
Subjective Progress Note Date: 03/12/24 - History of Present Illness This is a 38-year-old obese gentleman with past medical history significant for recent exploratory laparotomy with small bowel resection secondary to small bowel enteritis, diverticular abscess in the mid pelvis not drainable per interventional radiology service- October 2023,chronic back pain, Guillian Norman syndrome, osteoarthritis, nicotine dependence-chews, alcohol use and multiple other medical issues reports worsening abdominal pain over the last several weeks, weight gain and did not follow-up with PCP as he had no insurance. Patient's weight is actually decreased, in October patient was 118 kg, currently 106 kg. Denies nausea vomiting or diarrhea. Denies change in bowel habits. Spontaneous voiding without difficulty. Denies chest pain, palpitations or shortness of breath. 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 Previous colonic wall thickening has resolv ed no doron acute diverticulitis seen. Small fatty umbilical hernia slightly larger at 2.7 versus 1.5 cm previously. March 01, 2024: Patient seen and evaluated today. He is feeling better. Surge ry is planning on keeping him another day. He has suspected Crohn's disease with fistula per surgery. March 02, 2024: Patient remains uncomfortable and his bed. He is up ambulating regularly. He has hydromorphone ordered for pain. He is on Solu- Medrol for suspected Crohn's disease. He denies any chest pains pressures or shortness of breath this time. We discussed DVT prophylaxis since he is in the hospital. Patient has a history of hypertension and previously takes losartan. Currently vitals are stable, blood pressure is normal. No laboratory studies are pending. March 03, 2024: Patient is sitting on the couch in his room today. He is able to ambulate. He has not needed pain medication for the past 18 hours. He remains on Zosyn, and Solu-Medrol for suspected Crohn's disease. He denies any chest pains pressure shortness of breath nausea or vomiting. 03/04/2024 continues on Zosyn and steroids, complains of upper abdominal pressure. Reports 2 soft bowel movements this morning. Ambulating, tolerating exertion well. Denies chest pain, palpitations or shortness of breath. Afebrile. 03/05/2024 hypertensive, reports mild depression over prolonged abdominal pain .Norvasc and Zoloft added to med regimen .continues to complain of crampy abdominal pressure after eating accompanied by nausea-states unchanged. Continues on IV steroids and Zosyn. Afebrile. 03/06/2024 evaluated by pulmonary yesterday for hemoptysis, chest CT completed, results pending. Denies further hemoptysis. continues on Zosyn and steroids with symptoms unchanged; denies worsening ,denies improving. Neurosurgery initiated transfer yesterday to [facility] for further GI evaluation with bed pending. Denies chest pain, palpitations or shortness of breath. Maintaining O2 sats in the 90s on room air. Afebrile, normal WBC. 03/07/2024 no overnight events. Consuming 75 to 100% of diet-documented. Reports unchanged cramping and sharp abdominal pain after eating-not worsened. Denies nausea or vomiting. Reports normal bowel movements-nonbloody. No hemoptysis, no sore throat, no cough congestion chills or fevers. Continues on steroids and antibiotics as per general surgery. CT reported possible aspiration pneumonia, asymptomatic. Patient continues on Zosyn. Denies shortness of breath, maintaining O2 sats in the high 90s on room air. Awaiting transfer to [facility]. 03/10/2024 Denies worsening of abdominal pain, reports unchanged-states it continues to occurs after eating. Denies constipation reports regular bowel movements. Afebrile, WBC 13.2, CRP < 0.5. Maintained on IV steroids, Bentyl and Zosyn. Denies chest pain, palpitations or shortness of breath. Maintaining O2 sats in the high 90s on room air. 03/11/2024 NPO, for colonoscopy this afternoon. Reports gas pains. Vital signs stable. Denies chest pain, palpitations or shortness of breath. 03/12/2024 completed colonoscopy yesterday, reporting normal-appearing terminal ileum with no evidence of Crohn's disease, scattered sigmoid diverticulosis, no evidence of colitis or colorectal neoplasia ,small internal hemorrhoids. Steroids discontinued .during the night complained of gas pain. GI recommended small bowel series which patient is completing today. Tmax 100.2, CBC pending. Objective - Vital Signs Vital signs: Vital Signs Temp 98.3 F 03/12/24 07:24 Pulse 78 03/12/24 07:24 Resp 17 03/12/24 07:24 BP 114/63 03/12/24 07:24 Pulse Ox 98 03/12/24 07:24 FiO2 Intake & Output 03/11/24 03/12/24 03/12/24 18:59 06:59 18:59 Intake Total 350 Balance 350 Intake: IV 350 Other: Voiding Method Toilet Toilet # Voids 4 4 # Bowel Movements 4 - Exam General: Alert and oriented x 3, sitting up in bed, no acute distress. Cardiovascular: S1S2 is normal, regular rate and rhythm. Respiratory: Unlabored, equal air entry, clear to auscultation. Gastrointestinal: Soft, nondistended, nontender, positive bowel sounds EXTREMITIES: no pedal edema,no calf tenderness. Neurological: CN II-XII intact, strength and sensation grossly intact. Skin: Skin is warm and dry,no rashes noted. - Labs CBC & Chem 7: 03/11/24 04:20 03/10/24 10:20 Assessment and Plan Assessment: Abdominal pain worsening over the last several weeks, in a patient with recent exploratory laparotomy with small bowel resection secondary to small bowel enteritis, diverticular abscess in the mid pelvis not drainable per interventional radiology service- October 2023, CT suggest coloenteric fistula, small pocket of free air. Suspected Crohn's disease per general surgery. Status post colonoscopy reporting no evidence of Crohn's disease. Scattered sigmoid diverticulosis, no evidence of colitis or colorectal neoplasia, small internal hemorrhoids. Guillian Norman syndrome Chronic back pain Osteoarthritis Morbid obesity, BMI 37.3 Alcohol use Nicotine dependence, chews Hemoptysis, resolved. Chest CT reported patchy opacity posterior right lung base and patchy groundglass anterior left upper lobe,possible aspiration pneumonia Ascending aortic aneurysm 4.3 cm, further monitoring outpatient Plan: Continue on current medication regimen ,monitoring and symptomatic treatment. Steroids have been discontinued. Small bowel series today .increase ambulation as tolerated .smoking sensation and alcohol abstinence reinforced. Follow-up with PCP in 1 week. The impression and plan of care has been dictated as directed. : I performed a history and examination of this patient, discussed the same with the dictator. I agree with the dictator's note ,documented as a scribe. Any additional findings or plans will be noted.
--- NOTE | 2024-03-12 13:47 | FL ---
EXAMINATION: Small bowel follow through DATE: 03/12/2024 CLINICAL INDICATION: 38 year-old male with abdominal pain, nausea, and fever COMPARISON: CT 02/28/2024 Total Fluoroscopy Time: 42 seconds Total DAP: 50 mGycm2 25 images obtained. FINDINGS: Initial signal constructor image shows nonobstructive bowel gas pattern. Air is present throughout the colon. Mild to moderate stool in the right side of the colon. Transitional lumbosacral segment incidentally note d. Following administration of barium, serial films were carried out to 2 hours and 20 minutes. Barium i s seen to reach the colon. Loops of jejunum and ileum are compressed and examined under fluoroscopy. There is a mildly patulous loop of small bowel in the left lower quadrant measuring 5.4 cm below a no rmal mucosal pattern and normal adjacent loops. This likely corresponds to the site of previous small bowel surgery and represents chronic postsurgical change. Otherwise, the small bowel loops have a normal-caliber. Mucosal pattern is within normal limits. There is otherwise, no intrinsic or extrinsic process is suspected. No abnormal early opacification seen of any of the left-sided colon. IMPRESSION: 1. Normal small bowel transit time of 2 hours 20 minutes. 2. A surgerized small bowel loop in the left lower quadrant is mildly distended, likely chronic posts urgical change. 3. Otherwise, normal small bowel examination. No abnormal early filling of the left side of the colon .
--- NOTE | 2024-03-12 14:54 | P.DS ---
Providers Date of admission: 02/28/24 10:29 Expected date of discharge: 03/12/24 Attending physician: David Santillan Consults: 02/28/24 20:10 Consult Physician Routine Consulting Provider: Loc Lagos Consult Reason/Comments: medical management Do you want consulting provider notified?: Already Contacted 03/05/24 08:04 Consult Physician Routine Consulting Provider: Darcie Martinez Consult Reason/Comments: bloody sputum Do you want consulting provider notified?: Yes 03/09/24 14:40 Consult Physician Routine Consulting Provider: Selena Barber Consult Reason/Comments: Crohns Do you want consulting provider notified?: Yes, Notify in am Primary care physician: Loc Lagos Hospital Course: Discharge diagnosis 1. Abdominal pain. Postsurgical changes noted on CAT scan and small bowel follow-through 2. No evidence of enterocolonic fistula on small bowel follow-through or colonoscopy 3. Possible aspiration pneumonia. Completed antibiotic treatment Hospital course This is a 41-year-old male who presented the hospital with complaints of abdominal pain. Patient was prior history of small bowel resection for enteritis in September of this year. CAT scan shows just of intracolonic fistulas. Patient was initially started on IV steroids for possible Crohn's exacerbation. He was also started on antibiotics. Patient initially was going to be transferred to [facility] to be evaluated by her GI service. However, patient was able to be seen by GI service this week during his admission. They completed a colonoscopy which had shown evidence of diverticulosis and no evidence of Crohn's per their report. Biopsies were obtained. GI service is recommending Bentyl for patient's abdominal cramping. Pulmonary service was following for the possible aspiration pneumonia and they have signed off. Patient is ambulating. His pain is controlled. He is tolerating diet. He is currently afebrile. He is stable for discharge with GI follow-up. Patient had no evidence of intracolonic fistula noted on small bowel follow-through. Did report evidence of postsurgical changes. Patient is stable for discharge. Please refer to chart for any further details. Patient requires no further antibiotics at discharge. Physician Quality Assurance Assessor note has been reviewed by physician. Signing provider agrees with the documented findings, assessment, and plan of care. Patient Condition at Discharge: Stable Plan - Discharge Summary Discharge Rx Participant: No New Discharge Prescriptions: New Dicyclomine [Bentyl] 20 mg PO TID #90 tab No Action Losartan Potassium [Cozaar] 25 mg PO HS Discharge Medication List Losartan Potassium [Cozaar] 25 mg PO HS 12/27/21 [History] Dicyclomine [Bentyl] 20 mg PO TID #90 tab 03/12/24 [Rx] Follow up Appointment(s)/Referral(s): Loc Lagos MD [Primary Care Provider] - 1-2 days David Santillan MD [STAFF PHYSICIAN] - As Needed Selena Barber MD [STAFF PHYSICIAN] - 1 Week Discharge Disposition: HOME SELF-CARE
[2024-03-12 15:13] VITALS: BP 112/53; PULSE 80; TEMP 100.5
[2024-03-12] MEDS: ACETAMINOPHEN TAB 325 MG TAB PO PRN (15:36)
== END 2024-03-12 16:20 | disposition home or self-care (01) | DRG 391 ==
LOC: EC 06:29 → 4SSUR 10:28 → OBSVTOIN 10:29 → 4SSUR 13:58
PROVIDERS: ADMIT Surgery; ATTEND Surgery
PROC: 0DBB8ZX Excision of Ileum, Via Natural or Artificial Opening Endoscopic, Diagnostic (ICD-10-PCS; 2024-03-11)
PROC: 0DBM8ZX Excision of Descending Colon, Via Natural or Artificial Opening Endoscopic, Diagnostic (ICD-10-PCS; 2024-03-11)
PROC: 0DBK8ZX Excision of Ascending Colon, Via Natural or Artificial Opening Endoscopic, Diagnostic (ICD-10-PCS; principal; 2024-03-11 07:30)
DX: K57.30 Diverticulosis of large intestine without perforation or abscess without bleeding (principal); J69.0 Pneumonitis due to inhalation of food and vomit; G61.0 Guillain-Barre syndrome; R18.8 Other ascites; R04.2 Hemoptysis; I71.21 Aneurysm of the ascending aorta, without rupture; E66.01 Morbid (severe) obesity due to excess calories; D64.9 Anemia, unspecified; I10 Essential (primary) hypertension; F17.220 Nicotine dependence, chewing tobacco, uncomplicated; M54.9 Dorsalgia, unspecified; K42.9 Umbilical hernia without obstruction or gangrene; M19.90 Unspecified osteoarthritis, unspecified site; F10.90 Alcohol use, unspecified, uncomplicated; K58.9 Irritable bowel syndrome, unspecified; K64.8 Other hemorrhoids; G89.29 Other chronic pain; Z68.37 Body mass index [BMI] 37.0-37.9, adult; Z88.5 Allergy status to narcotic agent; Z90.49 Acquired absence of other specified parts of digestive tract; Z63.5 Disruption of family by separation and divorce; Z59.7 Insufficient social insurance and welfare support; Z87.19 Personal history of other diseases of the digestive system
CPT/HCPCS: 36410; 36415; 45380; 71045; 71260; 74176; 74177; 74250; 76937; 80048; 80053; 83516; 83605; 83690; 85025; 85027; 85652; 86140; 88305; 96360; 99285